=== PATIENT | female | born 1985 | race Hispanic/Latino ===

== ENCOUNTER 2019-12-11 18:51 | Emergency (ER) | payer OTHER ==
[2019-12-11] MEDS ORDERED: ACETAMINOPHEN 325 MG TABLET ONE ×2 (19:33→19:34)
[2019-12-11] MEDS ORDERED: IBUPROFEN 400 MG TAB ONE (19:34)
--- NOTE | 2019-12-11 20:13 | RAD REPORT ---
EXAM DESCRIPTION: RAD - Wrist Right 3 View - 12/11/2019 7:51 pm CLINICAL HISTORY: Right wrist pain FINDINGS: No fracture or dislocation is seen. No bone or joint abnormality seen
--- NOTE | 2019-12-11 20:24 | ER ---
Nurse's Notes [facility] Name: Maida Andrews Age: 34 yrs Sex: Female : 1985 Arrival Date: 12/11/2019 Time: 18:53 Bed 13 Private MD: Diagnosis: Pain in right wrist Presentation: 12/11 18:55 Presenting complaint: Right wrist pain 7/10 upon waking today. Denies injury. Mild hb bruising and abrasions noted to right wrist. Transition of care: patient was not received from another setting of care. Onset of symptoms was December 11, 2019. Risk Assessment: Do you want to hurt yourself or someone else? Patient reports no desire to harm self or others. Care prior to arrival: None. 18:55 Method Of Arrival: Ambulatory hb 18:55 Acuity: SARKIS 4 hb Historical: - Allergies: 18:55 No Known Allergies; hb - Home Meds: 18:55 None [Active]; hb - PMHx: 18:55 None; hb - PSHx: 18:55 Tubal ligation; hb - Immunization history:: Adult Immunizations up to date. - Coronavirus screen:: The patient has NOT traveled to [place], [place], or [place] in the past 14 days. The patient has NOT had contact with known/suspected case of Coronavirus? Proceed with normal triage procedures. - Social history:: Smoking status: Patient denies any tobacco usage or history of. - Ebola Screening: : No symptoms or risks identified at this time. Screenin:37 Abuse screen: Denies threats or abuse. Denies injuries from another. Nutritional ls4 screening: No deficits noted. Tuberculosis screening: No symptoms or risk factors identified. Fall Risk None identified. Assessment: 19:36 General: Appears in no apparent distress. comfortable. Pain: Complains of pain in right ls4 wrist Pain currently is 8 out of 10 on a pain scale. Neuro: No deficits noted. Cardiovascular: No deficits noted. Respiratory: No deficits noted. GI: No deficits noted. : No deficits noted. Derm: No deficits noted. Musculoskeletal: No deficits noted. Vital Signs: 18:55 BP 111 / 51; Pulse 74; Resp 16; Temp 97.8; Pulse Ox 98% on R/A; Weight 72.57 kg; Height hb 5 ft. (152.40 cm); Pain 8/10; 18:55 Body Mass Index 31.25 (72.57 kg, 152.40 cm) ED Course: 18:53 Patient arrived in ED. as 18:55 Triage completed. hb 18:55 Arm band placed on. hb 18:58 Randolph Tovar PA is PHCP. cp 18:58 Cristhian Priest MD is Attending Physician. cp 19:20 Abbey Roberts, RN is Primary Nurse. ls4 19:37 Patient has correct armband on for positive identification. Bed in low position. Call ls4 light in reach. Side rails up X 1. 19:37 No provider procedures requiring assistance completed. Patient did not have IV access ls4 during this emergency room visit. 19:52 XRAY Wrist RIGHT 3 view In Process Unspecified. EDMS Administered Medications: 19:35 Drug: Ibuprofen 800 mg Route: PO; ls4 20:47 Follow up: Response: No adverse reaction; Marked relief of symptoms ls4 19:36 Drug: Tylenol 1000 mg Route: PO; ls4 20:47 Follow up: Response: No adverse reaction; Marked relief of symptoms ls4 Outcome: 20:24 Discharge ordered by MD. cp 20:47 Discharged to home ambulatory. ls4 20:47 Condition: good 20:47 Discharge instructions given to patient, Instructed on discharge instructions, follow up and referral plans. medication usage, Demonstrated understanding of instructions, follow-up care, medications, Prescriptions given X 1. 20:51 Patient left the ED. ls4 Signatures: Dispatcher [employer] EDMS Kalpana Lee as Randolph Tovar PA PA cp Baxter, Heather, RN RN Abbey Roberts, RN RN ls4
--- NOTE | 2019-12-11 20:24 | EDPHYS ---
Physician Documentation [facility] Name: Maida Andrews Age: 34 yrs Sex: Female : 1985 Arrival Date: 12/11/2019 Time: 18:53 Bed 13 Private MD: ED Physician Cristhian Priest HPI: 12/11 19:05 This 34 yrs old Female presents to ER via Ambulatory with complaints of Wrist cp Pain - swelling. 19:05 The patient or guardian reports pain, tenderness. The complaints affect the right wrist cp diffusely. Context: Patient reports she was moving some furniture around last weekend and again earlier this week and denies any specific injury to wrist. Started having pain to right wrist. Historical: - Allergies: 18:55 No Known Allergies; hb - Home Meds: 18:55 None [Active]; hb - PMHx: 18:55 None; hb - PSHx: 18:55 Tubal ligation; hb - Immunization history:: Adult Immunizations up to date. - Coronavirus screen:: The patient has NOT traveled to [place], [place], or [place] in the past 14 days. The patient has NOT had contact with known/suspected case of Coronavirus? Proceed with normal triage procedures. - Social history:: Smoking status: Patient denies any tobacco usage or history of. - Ebola Screening: : No symptoms or risks identified at this time. ROS: 19:10 Constitutional: Negative for body aches, chills, fever. cp 19:10 Eyes: Negative for injury, pain, redness, and discharge. cp 19:10 Cardiovascular: Negative for chest pain. 19:10 Respiratory: Negative for cough. 19:10 Abdomen/GI: Negative for abdominal pain. 19:10 MS/extremity: Positive for pain, tenderness, of the right wrist, Negative for injury or acute deformity, decreased range of motion, paresthesias. 19:10 All other systems are negative. Exam: 19:15 Constitutional: The patient appears in no acute distress, alert, awake, non-toxic, well cp developed, well nourished. 19:15 Hand exam: is negative for decreased range of motion, deformity, swelling, Exam is cp positive for pain, snuff box/scaphoid tenderness, tenderness, ROM: limited passive range of motion due to pain, in the right wrist, Perfusion: the extremity is normally perfused throughout, sensation intact. 19:15 Skin: cellulitis, is not appreciated, no rash present. 19:15 Head/Face: Normocephalic, atraumatic. Vital Signs: 18:55 BP 111 / 51; Pulse 74; Resp 16; Temp 97.8; Pulse Ox 98% on R/A; Weight 72.57 kg; Height hb 5 ft. (152.40 cm); Pain 8/10; 18:55 Body Mass Index 31.25 (72.57 kg, 152.40 cm) hb MDM: 19:04 Patient medically screened. cp 20:23 Differential diagnosis: closed fracture, tendonitis, sprain, strain. Data reviewed: cp vital signs, nurses notes, radiologic studies, plain films. 12/11 19:06 Order name: XRAY Wrist RIGHT 3 view; Complete Time: 20:19 cp 12/11 20:19 Interpretation: Report reviewed. cp 12/11 19:48 Order name: Splint - Wrist: right; Complete Time: 20:47 cp Administered Medications: 19:35 Drug: Ibuprofen 800 mg Route: PO; ls4 20:47 Follow up: Response: No adverse reaction; Marked relief of symptoms ls4 19:36 Drug: Tylenol 1000 mg Route: PO; ls4 20:47 Follow up: Response: No adverse reaction; Marked relief of symptoms ls4 Disposition: 12/12 07:10 Co-signature as Attending Physician, Cristhian Priest MD. rn Disposition: 12/11/19 20:24 Discharged to Home. Impression: Pain in right wrist. - Condition is Stable. - Discharge Instructions: Wrist Pain. - Prescriptions for Naprosyn 500 mg Oral Tablet - take 1 tablet by ORAL route 2 times per day take with food; 20 tablet. - Medication Reconciliation Form, Thank You Letter, Antibiotic Education, Prescription Opioid Use, Work release form form. - Follow up: Private Physician; When: 1 week; Reason: Worsening of condition. - Problem is new. - Symptoms have improved. Signatures: Dispatcher [employer] EDMS Cristhian Priest MD MD rn Page, Corey, PA PA cp Baxter, Heather, RN RN hb Stewart, Lisa, RN RN ls4 Corrections: (The following items were deleted from the chart) 12/11 20:51 20:24 12/11/2019 20:24 Discharged to Home. Impression: Pain in right wrist. Condition ls4 is Stable. Forms are Medication Reconciliation Form, Thank You Letter, Antibiotic Education, Prescription Opioid Use. Follow up: Private Physician; When: 1 week; Reason: Worsening of condition. Problem is new. Symptoms have improved. cp
[2019-12-11 20:57] VITALS: BP 111/51; TEMP 97.8; O2SAT 98
== END 2019-12-11 20:51 | disposition home or self-care (01) ==
LOC: ER 18:51
DX: M25.531 Pain in right wrist (principal)
CPT/HCPCS: 99283

== ENCOUNTER 2021-03-05 19:27 | Emergency (ER) | payer OTHER ==
--- OUTSIDE RECORDS SUMMARY | 2021-03-05 19:30 | XMS REPORT | Continuity of Care Document ---
:1985 Author Organization [facility] t Address [address] [place] [address] Care Team Providers Name Role Phone Paresh Manriquez Attending Clinician Problems This patient has no known problems. Allergies, Adverse Reactions, Alerts This patient has no known allergies or adverse reactions. Medications This patient has no known medications. Procedures This patient has no known procedures. Encounters Start End Encounter Admission Attending Care Care Encounter Source Date/Time Date/Time Type Type Clinicians Facility Department ID 2020-08-03 2020-08-03 Office ANTONIO Bradley [id number] 08:23:11 08:59:25 Visit Anne Yoder [facility] [facility] [id number] [facility] [id number] MATERNAL [id number] & CHILD [address] [place] [address] Results This patient has no known results.
--- NOTE | 2021-03-05 22:42 | ER ---
Nurse's Notes [facility] Name: Maida Tomlin Age: 35 yrs Sex: Female : 1985 Arrival Date: 03/05/2021 Time: 19:28 Bed Waiting Private MD: Diagnosis: Acute upper respiratory infection, unspecified;Nausea with vomiting, unspecified Presentation: 03/05 20:38 Chief complaint: Patient states: Reports she started having nausea, shortness of ea breath, and cough that started two days ago. 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 Coronavirus screen: Client presents with at least one sign or symptom that may indicate coronavirus-19. Standard/surgical mask placed on the client. Ebola Screen: No symptoms or risks identified at this time. Initial Sepsis Screen: Does the patient meet any 2 criteria? No. Patient's initial sepsis screen is negative. Does the patient have a suspected source of infection? No. Patient's initial sepsis screen is negative. Risk Assessment: Do you want to hurt yourself or someone else? Patient reports no desire to harm self or others. Onset of symptoms was March 05, 2021. 20:38 Method Of Arrival: Ambulatory ea 20:38 Acuity: SARKIS 3 ea Triage Assessment: 22:35 GI: Reports vomiting. 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 - Social history:: Smoking status: Patient denies any tobacco usage or history of. - Family history:: not pertinent. - Hospitalizations: : No recent hospitalization is reported. Screenin:44 Abuse screen: Denies threats or abuse. Nutritional screening: No deficits noted. ea Tuberculosis screening: No symptoms or risk factors identified. Fall Risk None identified. Assessment: 22:35 General: Appears in no apparent distress. Behavior is calm, cooperative. Pain: Denies bb pain. Neuro: Level of Consciousness is awake, alert, obeys commands, Oriented to person, place, time, situation. Cardiovascular: No deficits noted. Respiratory: Respiratory effort is even, unlabored, Respiratory pattern is regular. GI: Abdomen is non-distended. Derm: Skin is pink, warm \T\ dry. Musculoskeletal: Circulation, motion, and sensation intact. 22:37 Reassessment: Dr Priest in triage for pt evaluation and discussion of findings and bb recommendations pt to be discharged home with medications. Pt verbalized understanding of and agrees to plan of care discharge instructions given pt ambulated with steady gait to exit. Vital Signs: 20:38 BP 126 / 77; Pulse 77; Resp 18; Temp 97.5; Pulse Ox 99% ; Weight 68.04 kg; Height 5 ft. ea 2 in. (157.48 cm); 22:41 BP 120 / 78; Pulse 66; Resp 16 S; Temp 97.2(TE); Pulse Ox 99% on R/A; Pain 0/10; bb 20:38 Body Mass Index 27.44 (68.04 kg, 157.48 cm) ea ED Course: 19:28 Patient arrived in ED. cf2 20:42 Triage completed. ea 20:45 Arm band placed on right wrist. ea 20:46 Patient has correct armband on for positive identification. Bed in low position. Call ea light in reach. 21:17 XRAY Chest (1 view) In Process Unspecified. EDMS 22:30 Cristhian Priest MD is Attending Physician. rn 22:35 No provider procedures requiring assistance completed. Patient did not have IV access bb during this emergency room visit. Administered Medications: No medications were administered Outcome: 22:35 Discharged to home ambulatory. bb 22:35 Condition: stable 22:35 Discharge instructions given to patient, Instructed on discharge instructions, follow up and referral plans. medication usage, Demonstrated understanding of instructions, follow-up care, medications, Prescriptions given X 2. 22:42 Discharge ordered by . rn 22:47 Patient left the ED. bb Signatures: Dispatcher [employer] EDMS Johnna Henao RN RN bb Nieto, Roman, MD MD rn Antunez, Elena, RN RN ea Frazier, Celesta cf2
--- NOTE | 2021-03-05 22:42 | EDPHYS ---
Physician Documentation [facility] Name: Maida Tomlin Age: 35 yrs Sex: Female : 1985 Arrival Date: 03/05/2021 Time: 19:28 Bed Waiting Private MD: ED Physician Cristhian Priest HPI: 03/05 22:38 This 35 yrs old Female presents to ER via Ambulatory with complaints of rn EXPOSURE TO COVID, Nausea, Vomiting, Headache, Breathing Difficulty. 22:38 The patient presents to the emergency department with nausea, vomiting. Onset: The rn symptoms/episode began/occurred 1 week(s) ago. Possible causes: unknown. The symptoms are aggravated by nothing. The symptoms are alleviated by nothing. Associated signs and symptoms: Pertinent positives: nausea, Pertinent negatives: abdominal pain, fever, GI bleeding. Severity of symptoms: At their worst the symptoms were mild in the emergency department the symptoms are unchanged. The patient has not experienced similar symptoms in the past. The patient has not recently seen a physician. Reports exposure to COVID + co-worker, patient with 1 week of cough, myalgias, fatigue, nausea and vomiting, headache, fatigue. No abd pain. Is feeling better. Tubes tied, not . NO chest pain. Reports takes breathing treatments at home but needs refill of albuterol. . 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 - Social history:: Smoking status: Patient denies any tobacco usage or history of. - Family history:: not pertinent. - Hospitalizations: : No recent hospitalization is reported. ROS: 22:38 Constitutional: Negative for fever, chills, and weight loss, Eyes: Negative for injury, rn pain, redness, and discharge, ENT: Negative for injury, pain, and discharge, Neck: Negative for injury, pain, and swelling, Cardiovascular: Negative for chest pain, palpitations, and edema, Respiratory: + cough and wheezing Abdomen/GI: Negative for abdominal pain, diarrhea, and constipation, MS/Extremity: Negative for injury and deformity, Skin: Negative for injury, rash, and discoloration, Neuro: Negative for numbness, tingling, and seizure. Exam: 22:38 Constitutional: This is a well developed, well nourished patient who is awake, alert, rn and in no acute distress. Head/Face: Normocephalic, atraumatic. Eyes: Periorbital areas with no swelling, redness, or edema. Neck: No Meningismus. Cardiovascular: Regular rate and rhythm Respiratory: Speaking full sentences, unlabored.No retractions. Skin: NO cyanosis Neuro: Awake and alert, GCS 15 Vital Signs: 20:38 BP 126 / 77; Pulse 77; Resp 18; Temp 97.5; Pulse Ox 99% ; Weight 68.04 kg; Height 5 ft. ea 2 in. (157.48 cm); 22:41 BP 120 / 78; Pulse 66; Resp 16 S; Temp 97.2(TE); Pulse Ox 99% on R/A; Pain 0/10; bb 20:38 Body Mass Index 27.44 (68.04 kg, 157.48 cm) ea MDM: 22:30 Patient medically screened. rn 22:38 Differential diagnosis: viral gastroenteritis, gastroenteritis, viral syndrome, covid. rn Data reviewed: vital signs, nurses notes, lab test result(s), radiologic studies, plain films, and as a result, I will discharge patient. Counseling: I had a detailed discussion with the patient and/or guardian regarding: the historical points, exam findings, and any diagnostic results supporting the discharge/admit diagnosis, lab results, the need for outpatient follow up, to return to the emergency department if symptoms worsen or persist or if there are any questions or concerns that arise at home. Response to treatment: the patient's symptoms have mildly improved after treatment, and as a result, I will discharge patient. Special discussion: I discussed with the patient/guardian in detail that at this point there is no indication for admission to the hospital. It is understood, however, that if the symptoms persist or worsen the patient needs to return immediately for re-evaluation. Based on the history and exam findings, there is no indication for further emergent testing or inpatient evaluation. I discussed with the patient/guardian the need to see the primary care provider for further evaluation of the symptoms. ED course: Stable vitals, viral pattern on CXR, COVID neg, no oxygen requirement, will refill albuterol and given zofran prn, will dc home with return precautions.. 03/05 20:45 Order name: XRAY Chest (1 view) ea 03/05 22:25 Order name: SARS-COV-2 RT PCR; Complete Time: 22:30 EDTX Administered Medications: No medications were administered Disposition: 03/05/21 22:42 Discharged to Home. Impression: Acute upper respiratory infection, unspecified, Nausea with vomiting, unspecified. - Condition is Stable. - Discharge Instructions: Nausea and Vomiting, Adult, Viral Respiratory Infection. - Prescriptions for Zofran ODT 4 mg Oral tablet,disintegrating - place 1 tablet by TRANSLINGUAL route every 8 hours As needed; 20 tablet. Albuterol Sulfate 2.5 mg /3 mL (0.083 %) Inhalation Solution for Nebulization - inhale 1 unit by NEBULIZATION route every 8 hours As needed; 1 box. - Medication Reconciliation Form, Thank You Letter, Antibiotic Education, Prescription Opioid Use form. - Follow up: Private Physician; When: As needed; Reason: Recheck today's complaints, Re-evaluation by your physician. - Problem is new. - Symptoms have improved. Signatures: Dispatcher [employer] [facility] Johnna Henao RN RN bb Nieto, Roman, MD MD rn Antunez, Elena, RN RN ea Corrections: (The following items were deleted from the chart) 21:38 21:27 CORONAVIRUS+ ordered. [facility] EDTX 22:47 22:42 03/05/2021 22:42 Discharged to Home. Impression: Acute upper respiratory bb infection, unspecified; Nausea with vomiting, unspecified. Condition is Stable. Forms are Medication Reconciliation Form, Thank You Letter, Antibiotic Education, Prescription Opioid Use. Follow up: Private Physician; When: As needed; Reason: Recheck today's complaints, Re-evaluation by your physician. Problem is new. Symptoms have improved. rn
[2021-03-05 23:27] VITALS: O2SAT 99
[2021-03-05 23:28] VITALS: BP 120/78; TEMP 97.2
--- NOTE | 2021-03-06 07:06 | RAD REPORT ---
EXAM DESCRIPTION: RAD - Chest Single View - 03/05/2021 9:19 pm CLINICAL HISTORY: CONGESTION, COVID exposure COMPARISON: None TECHNIQUE: AP portable chest image was obtained 03/05/2021 9:19 pm . FINDINGS: Patchy interstitial opacification seen in each lung base with patchy airspace opacities in the left lung base. Mid and upper lung archibald are clear. Heart and vasculature are normal. No measur able pleural effusion and no pneumothorax. No acute bony abnormality seen. No acute aortic findings s uspected. IMPRESSION: Minimal or early bilateral lung base pneumonia.
== END 2021-03-05 22:47 | disposition home or self-care (01) ==
LOC: ER 19:27
DX: J06.9 Acute upper respiratory infection, unspecified (principal); Z20.822 Contact with and (suspected) exposure to COVID-19
CPT/HCPCS: 71045; U0003; 99283

== ENCOUNTER 2022-12-29 20:02 | Emergency (ER) | payer OTHER ==
--- OUTSIDE RECORDS SUMMARY | 2022-12-29 20:09 | XMS REPORT | Continuity of Care Document ---
:1985 Author Organization [facility] t Address [address] [place] [address] Care Team Providers Name Role Phone SNYDER MELVI Whitfield Primary Care Physician Unavailable ARTIS PARK Attending Clinician Unavailable ANNE GRIER Attending Clinician Unavailable Anne Manriquez Attending Clinician [phone] ESTHELA HUGGINS Attending Clinician Unavailable Steven Torres Attending Clinician Esthela Huggins MD Attending Clinician BROOK CALHOUN Attending Clinician Unavailable Brook Calhoun MD Attending Clinician Doctor Unassigned, [place] Attending Clinician Unavailable Na Rubio CNM Attending Clinician Payers Payer Name Policy Type Policy Number Effective Date Expiration Date Stepan [employer] [id number] 2022 00:00:00 Problems Condition Condition Condition Status Onset Resolution Last Treating Co mments Source Name Details Category Date Date Treatment Clinician Date 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 (BMI (BMI 2-02 ity of 30-39.9) 30-39.9) 00:00: [address] Allergies, Adverse Reactions, Alerts Allergy Allergy Status Severity Reaction(s) Onset Inactive Treating Comm ents Source Name Type Date Date Clinician NO KNOWN Drug Active [facility] ALLERGIE Class ity of S [facility] Social History Social Habit Start Date Stop Date Quantity Comments Source [facility] Exposure to Not sure [facility] SARS-CoV-2 [facility] (event) [place] Alcohol intake 2020-08-03 2020-08-03 Ex-drinker [facility] 00:00:00 00:00:00 (finding) [facility] Tobacco use and 2020-08-03 2020-08-03 Never used Universit y of exposure 00:00:00 00:00:00 [facility] Smoking Status Start Date Stop Date Source Never smoker [facility] Medications Ordered Filled Start Stop Current Ordering Indication Dosage Frequency Signature Comments Components Source Medication Medication Date Date Medication? Clinician (SIG) Name Name HYDROCORTIS 2020-0 Yes [id number] Apply to Univers ONE-HYDROQU 7-09 area(s) at it y of [place] 00 Medical 1-4-0.025 % Branch TOPICAL CREAM HYDROCORTIS 2020-0 Yes [id number] Apply to Univers ONE-HYDROQU 7-09 area(s) at it y of [place] 00 Medical 1-4-0.025 % Branch TOPICAL CREAM HYDROCORTIS 2020-0 Yes [id number] Apply to Univers ONE-HYDROQU 7-09 area(s) at it y of [place] 00 Medical 1-4-0.025 % Branch TOPICAL CREAM HYDROCORTIS 2020-0 Yes [id number] Apply to Univers ONE-HYDROQU 7-09 area(s) at it y of [place] 00 Medical 1-4-0.025 % Branch TOPICAL CREAM HYDROCORTIS 2020- Yes [id number] Apply to Univers ONE-HYDROQU 7-09 area(s) at it y of [place] 00 Medical 1-4-0.025 % Branch TOPICAL CREAM HYDROCORTIS 2019- Yes [id number] Apply to Univers ONE-HYDROQU 7-09 area(s) at it y of [place] NO[place] 00 Medical 1-4-0.025 % Branch TOPICAL CREAM diclofenac 2019- No [id number] 75mg Take 1 Univers 75 mg EC 2- [id number] tablet by ity of tablet 00:00: 04:59 mouth 2 [place] 00 :00 (two) [facility] daily with meals for 30 days. diclofenac 2019- No [id number] 75mg Take 1 Univers 75 mg EC 2- [id number] tablet by ity of tablet 00:00: 04:59 mouth 2 [place] 00 :00 (two) [facility] daily with meals for 30 days. diclofenac 2019- No [id number] 75mg Take 1 Univers 75 mg EC 12-27 [id number] tablet by ity of tablet 00:00: 04:59 mouth 2 [place] 00 :00 (two) [facility] daily with meals for 30 days. multivitami 2020- No [id number] 1{tbl} Take 1 Univers n tablet 11-11 tablet by ity o f 00:00: 05:59 mouth [place] 00 :00 daily. [facility] multivitami 2020- No [id number] 1{tbl} Take 1 Univers n tablet 11-11 tablet by ity o f 00:00: 05:59 mouth [place] 00 :00 daily. [facility] Branch multivitami 2020- No [id number] 1{tbl} Take 1 Univers n tablet 11-11 tablet by ity o f 00:00: 05:59 mouth [place] 00 :00 daily. [facility] multivitami 2020- No [id number] 1{tbl} Take 1 Univers n tablet 11-11 tablet by ity o f 00:00: 05:59 mouth [place] 00 :00 daily. [facility] multivitami 2020- No [id number] 1{tbl} Take 1 Univers n tablet 11-11 tablet by ity o f 00:00: 05:59 mouth [place] 00 :00 daily. [facility] multivitami 2020- No [id number] 1{tbl} Take 1 Univers n tablet 11-11 tablet by ity o f 00:00: 05:59 mouth [place] 00 :00 daily. [facility] multivitami 2020- No [id number] 1{tbl} Take 1 Univers n tablet 11-11 tablet by ity o f 00:00: 05:59 mouth [place] 00 :00 daily. [facility] multivitami 2020- No [id number] 1{tbl} Take 1 Univers n tablet 11-11 tablet by ity o f 00:00: 05:59 mouth [place] 00 :00 daily. [facility] No [id number] 1{tbl} Take 1 Univers n tablet 11-11 tablet by ity o f 00:00: 05:59 mouth [place] 00 :00 daily. [facility] multivitami 2020- No [id number] 1{tbl} Take 1 Univers n tablet 11-11 tablet by ity o f 00:00: 05:59 mouth [place] 00 :00 daily. [facility] multivitami 2020- No [id number] 1{tbl} Take 1 Univers n tablet 11-11 tablet by ity o f 00:00: 05:59 mouth [place] 00 :00 daily. [facility] multivitami 2020- No [id number] 1{tbl} Take 1 Univers n tablet 11-11 tablet by ity o f 00:00: 05:59 mouth [place] 00 :00 daily. Medical Branch POLI Galindo 2018- Yes Univers 1-18 ity of 00:00: [place] 00 Medical Branch ipratropium 2018- Yes Univer s -albuterol 1-18 ity of 0.5 mg-3 00:00: [place] mg(2.5 mg 00 Medical base)/3 mL Branch nebulizer solution POLI Galindo 2018- Yes Univers 1-18 ity of 00:00: [place] 00 Medical Branch ipratropium 2018-11 Yes Univer s -albuterol 1-18 ity of 0.5 mg-3 00:00: [place] mg(2.5 mg 00 Medical base)/3 mL Branch nebulizer solution VIOS 2018-11 Yes Univers 1-18 ity of 00:00: [place] 00 Medical Branch ipratropium 2018-11 Yes Univer s -albuterol 1-18 ity of 0.5 mg-3 00:00: [place] mg(2.5 mg 00 Medical base)/3 mL Branch nebulizer solution VIOS 2018-11 Yes Univers 1-18 ity of 00:00: [place] 00 Medical Branch ipratropium 2018-11 Yes Univer s -albuterol 1-18 ity of 0.5 mg-3 00:00: [place] mg(2.5 mg 00 Medical base)/3 mL Branch nebulizer solution VIOS 2018-11 Yes Univers 1-18 ity of 00:00: [place] 00 Medical Branch ipratropium 2018-11 Yes Univer s -albuterol 1-18 ity of 0.5 mg-3 00:00: [place] mg(2.5 mg 00 Medical base)/3 mL Branch nebulizer solution VIOS 2018-11 Yes Univers 1-18 ity of 00:00: [place] 00 Medical Branch ipratropium 2018-11 Yes Univer s -albuterol 1-18 ity of 0.5 mg-3 00:00: [place] mg(2.5 mg 00 Medical base)/3 mL Branch nebulizer solution VIOS 2018-11 Yes Univers 1-18 ity of 00:00: [place] 00 Medical Branch ipratropium 2018-11 Yes Univer s -albuterol 1-18 ity of 0.5 mg-3 00:00: [place] mg(2.5 mg 00 Medical base)/3 mL Branch nebulizer solution VIOS 2018-11 Yes Univers 1-18 ity of 00:00: [place] 00 Medical Branch ipratropium 2018-11 Yes Univer s -albuterol 1-18 ity of 0.5 mg-3 00:00: [place] mg(2.5 mg 00 Medical base)/3 mL Branch nebulizer solution VIOS Josie 2018-11 Yes Univers 1-18 ity of 00:00: [place] 00 Medical Branch ipratropium 2018-11 Yes Univer s -albuterol 1-18 ity of 0.5 mg-3 00:00: [place] mg(2.5 mg 00 Medical base)/3 mL Branch nebulizer solution AMBEROS Josie 2018-11 Yes Univers 1-18 ity of 00:00: [place] 00 Medical Branch ipratropium 2018-11 Yes Univer s -albuterol 1-18 ity of 0.5 mg-3 00:00: [place] mg(2.5 mg 00 Medical base)/3 mL Branch nebulizer solution POLI Galindo 2018-11 Yes Univers 1-18 ity of 00:00: [place] 00 Medical Branch ipratropium 2018-11 Yes Univer s -albuterol 1-18 ity of 0.5 mg-3 00:00: [place] mg(2.5 mg 00 Medical base)/3 mL Branch nebulizer solution POLI Galindo 2018-11 Yes Univers 1-18 ity of 00:00: [place] 00 Medical Branch ipratropium 2018-11 Yes Univer s -albuterol 1-18 ity of 0.5 mg-3 00:00: [place] mg(2.5 mg 00 Medical base)/3 mL Branch nebulizer solution Vital Signs Vital Name Observation Time Observation Value Comments Source Systolic blood 2020-08-03 13:35:00 98 mm[Hg] Univer sity [facility] Diastolic blood 2020-08-03 13:35:00 62 mm[Hg] [facility] 2020-08-03 13:35:00 67 /min [facility] Body temperature 2020-08-03 13:35:00 36.78 Diane [facility] rate 2020-08-03 13:35:00 16 /min [facility] Body height 2020-08-03 13:35:00 154.9 cm [facility] Body weight 2020-08-03 13:35:00 74.844 kg [facility] BMI 2020-08-03 13:35:00 31.18 kg/m2 [facility] Systolic blood 2020-08-03 13:35:00 98 mm[Hg] Univer sity [facility] Diastolic blood 2020-08-03 13:35:00 62 mm[Hg] Unive rsity of pressure [facility] Heart rate 2020-08-03 13:35:00 67 /min Universi ty of [facility] Body temperature 2020-08-03 13:35:00 36.78 Diane Univ ersity of [facility] Branch Respiratory rate 2020-08-03 13:35:00 16 /min Univ ersity of [facility] Body height 2020-08-03 13:35:00 154.9 cm Universi ty of [facility] Body weight 2020-08-03 13:35:00 74.844 kg Universi ty of [facility] BMI 2020-08-03 13:35:00 31.18 kg/m2 Universi ty of [facility] Systolic blood 2019-12-27 19:56:00 112 mm[Hg] Univer sity of pressure [facility] Diastolic blood 2019-12-27 19:56:00 63 mm[Hg] Unive rsity of pressure [facility] Heart rate 2019-12-27 19:56:00 88 /min Universi ty of [facility] Body height 2019-12-27 19:56:00 154.9 cm [facility]i ty [facility] Body weight 2019-12-27 19:56:00 74.844 kg [facility]i [facility] BMI 2019-12-27 19:56:00 31.18 kg/m2 Universi ty of [facility] Procedures Procedure Date / Time Performed Performing Clinician Sourc e REFERRAL- 2019-12-22 06:01:00 Doctor Unassigned, No Univer [facility] REQUEST/RESPONSE Name Medical Branch Encounters Start End Encounter Admission Attending Care Care Encounter Source Date/Time Date/Time Type Type Clinicians Facility Department ID 2023-01-23 2023-01-23 Outpatient R [facility] [id number] Univers 08:00:00 08:00:00 ity of [facility] 2020-11-21 2020-11-21 Outpatient Edwin PARK [facility] [id number] Univers 10:45:00 10:45:00 SHAKIRAA ity o f [facility] 2020-11-13 2020-11-13 Outpatient Edwin PARK [facility] [id number] Univers 15:00:00 15:00:00 ROSORALIANDA ity o f [facility] 2020-08-03 2020-08-03 Outpatient R CHRISENRIQUEGISELL [facility] [id number] Univers 09:00:00 09:00:00 ANNE pandey 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 [id number] REGIONAL [id number] MATERNAL [id number] & CHILD [address] [place] [address] 2020-08-03 2020-08-03 [facility] [id number] Univers 08:23:11 08:59:25 Visit Anne Paresh [employer] TOP INSTALLER [id number] ity of [facility] [id number] Parvez as MATERNAL [id number] Med ical & CHILD [address] [place] [address] 2020-05-18 2020-05-18 Outpatient R ROSY [facility] [id number] Univers 16:45:00 16:45:00 ESTHELA robles [facility] 2020-05-11 2020-05-11 [facility] [id number] Univers 10:15:00 10:15:00 ESTHELA robles [facility] 2020-05-11 2020-05-11 Office Steven Torres UNIVERSIT [id number] Univers 09:55:33 10:10:33 Visit Esthela Huggins HEALTH [id number] 0 ity of [id number] [id number] [address] 2020-01-17 2020-01-17 [facility] [id number] Univers 16:15:00 16:15:00 BROOK robles [facility] 2019-12-27 2019-12-27 [facility] [id number] Univers 13:52:41 14:14:45 Visit Brook No Health [id number] it y of Surgical [id number] Parvez as Specialti [phone] Me dical es [address] [facility] 2019-12-27 2019-12-27 Outpatient R LJ [facility] [id number] Univers 13:45:00 13:45:00 BROOK ity of [facility] 2019-12-27 2019-12-27 Letter Lj [facility] [id number] Univers 00:00:00 00:00:00 (Out) [place] [facility] [id number] it y of Surgical [id number] Parvez as Specialti [id number] Ga dical es [address] [facility] 2019-12-22 2019-12-22 Orders Doctor EFRAIN [id number] Univers 00:00:00 00:00:00 Only Unassigned, NATE [id number] ity of [place] [facility] [id number] Parvez as [id number] [facility] 00[address] [place] 2019-11-15 2019-11-15 Telephone Joanne, [facility] [id number] Univers 00:00:00 00:00:00 Na Cook HEALTH [id number] i ty of [place] [id number] [id number] [facility] 113 [place] Results Test Description Test Time Test Comments Results Result Comments Source SARS-CoV-2 (COVID-19), RT-PCR/TMA 2021-11-25 10:45:46 Test Item Value Reference Range Interpretation Comme nts SARS-CoV-2 INTERPRETATION NEGATIVE SEE NOTE S ARS-CoV-2 RNA NOT (test code = 88872) DETECTED Negative results do not preclude SARS-C oV-2 infection and should notb e used as the sole basis for patient management deci sions. Negativeresults must be combined with clinical o bservations, patient history ,and epidemiological information. Optimum specime n types and timingfor peak viral levels during infectio ns caused by SARS-CoV-2 have notbeen determined. Col lection of multiple specim ens or types ofspecimens may be necessary to detect virus. I mproper specimencollect ion and handling, sequence variab ility under primers/probes, or organism present below t he limit of detection may l ead to falsenegative r esults. Positive and negative pr edictive values oftesting are h ighly dependent on prevalence. False negative testresults are more likely when prevalence is h igh. SOURCE (test code = 32909) NOT SPECIFIED Note: Methodology is Adore Carrington Real-Time RT-PCR. The expected result or reference range is NEGATI VE (Not Detected). For more information regarding COVID -19 testing to include clinica linformation, methodology det ail, intended use, FDA author ization andrecommended fact sheets for patients or hea lthcare providers, see NewTest Announcement: S ARS-CoV-2 (COVID-19) by N AAT at URL below (note,fact shee ts are provided by method given in report:https:// www.[employer]/c linicians/ykle t-communications/ Alternatively, see downloadable PDF fact sheet at:https://www. [employer]/COVID -19-RT-PCR UNLE SS OTHERWISE INDICATED, ALL TESTING PERFORMED ATCLINICAL PATH [facility], [facility]. 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 [id number]
[2022-12-29] MEDS ORDERED: BENZONATATE 100 MG CAP PO ONE (21:18)
[2022-12-29] MEDS ORDERED: ACETAMINOPHEN 325 MG TABLET ONE (21:19)
[2022-12-29 22:16] LABS: SARS-COV-2 RT PCR NEGATIVE (NEGATIVE)
--- NOTE | 2022-12-29 22:28 | EDPHYS ---
Physician Documentation [facility] Name: Maida Tomlin Age: 37 yrs Sex: Female : 1985 Arrival Date: 12/29/2022 Time: 20:06 Bed 19 Private MD: ED Physician Micki Hayes HPI: 12/29 20:33 This 37 yrs old Female presents to ER via Ambulatory with complaints of Sore cp Throat. 20:33 The patient presents with sore throat. The patient describes throat pain as constant. cp Onset: The symptoms/episode began/occurred yesterday. Associated signs and symptoms: Pertinent positives: cough, Pertinent negatives diarrhea, fever, flu-like symptoms, headache, vomiting. 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 - Social history:: Smoking status: Patient denies any tobacco usage or history of. ROS: 23:35 Constitutional: Positive for body aches, Negative for fever, poor PO intake. cp 23:35 Eyes: Negative for injury, pain, redness, and discharge. cp 23:35 ENT: Positive for rhinorrhea, sore throat, Negative for drainage from ear(s), ear pain, difficulty swallowing, difficulty handling secretions. 23:35 Cardiovascular: Negative for chest pain, palpitations. 23:35 Respiratory: Positive for cough, Negative for shortness of breath, wheezing. 23:35 Abdomen/GI: Negative for abdominal pain, vomiting, diarrhea, constipation. 23:35 Skin: Negative for rash. 23:35 Neuro: Negative for altered mental status, headache, weakness. 23:35 All other systems are negative. Exam: 23:40 Constitutional: The patient appears in no acute distress, alert, awake, non-toxic, well cp developed, well nourished. 23:40 Head/Face: Normocephalic, atraumatic. cp 23:40 Eyes: Periorbital structures: appear normal, Conjunctiva: normal, no exudate, no injection, Sclera: no appreciated abnormality, Lids and lashes: appear normal, bilaterally. 23:40 ENT: External ear(s): are unremarkable, Ear canal(s): are normal, clear, TM's: bulging, is not appreciated, bilaterally, dullness, bilaterally, erythema, is not appreciated, bilaterally, Nose: is normal, Mouth: Lips: moist, Oral mucosa: moist, Posterior pharynx: Airway: no evidence of obstruction, patent, Tonsils: with erythema, no enlargement, no exudate, swelling, is not appreciated, erythema, that is mild, exudate, is not appreciated. 23:40 Neck: ROM/movement: is normal, is supple, without pain, no range of motions limitations, no meningismus, Lymph nodes: no appreciated lymphadenopathy. 23:40 Chest/axilla: Inspection: normal. 23:40 Cardiovascular: Rate: normal, Rhythm: regular. 23:40 Respiratory: the patient does not display signs of respiratory distress, Respirations: normal, no use of accessory muscles, no retractions, labored breathing, is not present, Breath sounds: decreased breath sounds, are not appreciated, stridor, is not appreciated, + upper airway congestion. wheezing: is not appreciated. 23:40 Abdomen/GI: Exam negative for discomfort, guarding, Inspection: abdomen appears normal. 23:40 Skin: no rash present. Vital Signs: 20:47 BP 102 / 69; Pulse 90; Resp 17; Temp 98.8(O); Pulse Ox 96% on R/A; Weight 68.04 kg (R); ll3 Height 5 ft. 0 in. (152.40 cm) (R); Pain 10/10; 20:47 Body Mass Index 29.29 (68.04 kg, 152.40 cm) ll3 MDM: 20:50 Patient medically screened. 22:26 Data reviewed: vital signs, nurses notes, lab test result(s). 22:26 I considered the following discharge prescriptions or medication management in the emergency department Medications were administered in the Emergency Department. See MAR. Test considered but Not performed: X-ray: chest. Counseling: I had a detailed discussion with the patient and/or guardian regarding: the historical points, exam findings, and any diagnostic results supporting the discharge/admit diagnosis, lab results, to return to the emergency department if symptoms worsen or persist or if there are any questions or concerns that arise at home. Special discussion: I discussed with the patient/guardian that the patient's current presentation does not indicate dosing of antibiotics. They should follow-up with their primary care provider and return if the symptoms persist or progress. 12/29 20:23 Order name: COVID-19/FLU A+B; Complete Time: 22:22 cp 12/29 22:25 Interpretation: Reviewed. cp 12/29 20:23 Order name: Strep; Complete Time: 22:22 cp Administered Medications: 21:18 Drug: Tessalon Perle (benzonatate) 200 mg Route: PO; eh3 22:40 Follow up: Response: Pain is decreased eh3 21:18 Drug: Tylenol 650 mg Route: PO; eh3 22:40 Follow up: Response: Pain is decreased eh3 Disposition Summary: 12/29/22 22:27 Discharge Ordered Location: Home cp Problem: new cp Symptoms: have improved cp Condition: Stable cp Diagnosis - Acute pharyngitis, unspecified cp - Cough cp Followup: cp - With: Private Physician - When: 2 - 3 days - Reason: Worsening of condition Discharge Instructions: - Discharge Summary Sheet cp - Pharyngitis cp - Sore Throat cp - Cough, Adult cp Forms: - Medication Reconciliation Form cp - Thank You Letter cp - Antibiotic Education cp - Prescription Opioid Use cp Prescriptions: - Ibuprofen 800 mg Oral Tablet - take 1 tablet by ORAL route every 8 hours As needed take with food; 30 tablet; cp Refills: 0, Product Selection Permitted - Tessalon Perles 100 mg Oral Capsule - take 2 capsule by ORAL route every 8 hours As needed; 30 capsule; Refills: 0, cp Product Selection Permitted Signatures: Dispatcher [employer] EDRandolph Soni PA PA cp Mayo Espinosa RN RN ll3 Afsaneh Jain RN RN eh3
--- NOTE | 2022-12-29 22:28 | ER ---
Nurse's Notes [facility] Name: Maida Tomlin Age: 37 yrs Sex: Female : 1985 Arrival Date: 12/29/2022 Time: 20:06 Bed 19 Private MD: Diagnosis: Acute pharyngitis, unspecified;Cough Presentation: 12/29 20:47 Chief complaint: Patient states: C/o sore throat, cough, green mucous, unable to eat ll3 because of the pain, states pain is 10/10 since yesterday. Coronavirus screen: Vaccine status: Patient reports being unvaccinated. congestion, cough unrelated to allergies. Ebola Screen: No symptoms or risks identified at this time. Initial Sepsis Screen: Does the patient meet any 2 criteria? No. Patient's initial sepsis screen is negative. Does the patient have a suspected source of infection? No. Patient's initial sepsis screen is negative. Risk Assessment: Do you want to hurt yourself or someone else? Patient reports no desire to harm self or others. Onset of symptoms was December 28, 2022. 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 - Social history:: Smoking status: Patient denies any tobacco usage or history of. Vital Signs: 20:47 BP 102 / 69; Pulse 90; Resp 17; Temp 98.8(O); Pulse Ox 96% on R/A; Weight 68.04 kg (R); ll3 Height 5 ft. 0 in. (152.40 cm) (R); Pain 10/10; 20:47 Body Mass Index 29.29 (68.04 kg, 152.40 cm) ll3 ED Course: 20:06 Patient arrived in ED. ja2 20:09 Randolph Tovar PA is PHCP. cp 20:09 Micki Hayes MD is Attending Physician. cp 20:49 Triage completed. ll3 20:49 Arm band placed on. 3 21:09 Afsaneh Jain, RN is Primary Nurse. 3 Administered Medications: 21:18 Drug: Tessalon Perle (benzonatate) 200 mg Route: PO; 3 22:40 Follow up: Response: Pain is decreased 3 21:18 Drug: Tylenol 650 mg Route: PO; 3 22:40 Follow up: Response: Pain is decreased [facility] Outcome: 22:27 Discharge ordered by . tasha 22:44 Patient left the ED. 3 Signatures: Randolph Tovar PA PA cp Alexander, Jessica ja2 Loubet, Lynsea RN RN 3 Afsaneh Jain, DOMI RN 3
== END 2022-12-29 22:44 | disposition home or self-care (01) ==
LOC: ER 20:02
DX: J02.9 Acute pharyngitis, unspecified (principal); R05.9 Cough, unspecified; Z20.822 Contact with and (suspected) exposure to COVID-19
CPT/HCPCS: 87070; 87081; 0240U; 99282

== ENCOUNTER 2023-08-12 06:33 | Emergency (ER) | payer OTHER, SELFPAY ==
--- OUTSIDE RECORDS SUMMARY | 2023-08-12 06:36 | XMS REPORT | Continuity of Care Document ---
:1985 Author Organization [facility] t Address [address] [facility] [address] [place] [address] Care Team Providers Name Role Phone Johnna Kingston CNM Primary Care Physician [phone] ANNE BRADLEY Attending Clinician Unavailable Visit, Jason Nurse Attending Clinician Unavailable Johnna Kingston CNM Attending Clinician JOHNNA KINGSTON Attending Clinician Unavailable Kirk Anne QUINN Attending Clinician [phone] Lab, Jason Attending Clinician Unavailable Doctor Unassigned, Effort Attending Clinician Unavailable ARTIS PARK Attending Clinician Unavailable ESTHELA HUGGINS Attending Clinician Unavailable Steven Torres Attending Clinician Esthela Huggins MD Attending Clinician BROOK CALHOUN Attending Clinician Unavailable Brook Calhoun MD Attending Clinician Na Rubio CNM Attending Clinician Payers Payer Name Policy Type Policy Number Effective Date Expiration Date Stepan PIÑA STAR [id number] 2022 00:00:00 Problems Condition Condition Condition Status Onset Resolution Last Treating Co mments Source Name Details Category Date Date Treatment Clinician Date History of History of Disease Active U nivers tubal tubal 3-23 ity of ligation ligation 00:00: [place] 00 [facility] 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 2018-11 Overview: Un [...] (HPV) (HPV) Other Other Disease Active 2018-11 [facility] general general 2-02 ity of counseling [place] advice and advice 00 Me dical for for Branch contracept contracept marian marian management management Obesity Obesity Disease Active 2018-11 [facility] (BMI (BMI 2-02 ity of 30-39.9) 30-39.9) 00:00: [address] Allergies, Adverse Reactions, Alerts Allergy Allergy Status Severity Reaction(s) Onset Inactive Treating Comm ents Source Name Type Date Date Clinician NO KNOWN Drug Active Univers ALLERGIE Class ity of S [facility] Social History Social Habit Start Date Stop Date Quantity Comments Source Sexual orientation Univer sity of [facility] Exposure to 2023-03-16 2023-03-26 Not sure [facility] SARS-CoV-2 (event) 00:00:00 08:29:00 [facility] History of Social 2023-01-23 2023-01-23 Univers ity of function 00:00:00 00:00:00 [facility] Alcohol intake 2023-01-23 2023-01-23 Ex-drinker [facility] 00:00:00 00:00:00 (finding) [facility] Tobacco use and 2019-10-04 2019-10-04 Smokeless Universit y of exposure 00:00:00 00:00:00 tobacco non-user [facility] Sex Assigned [birth year] Universit y of 00:00:00 00:00:00 [facility] Smoking Status Start Date Stop Date Source Never smoked tobacco [facility] Medications Ordered Filled Start Stop Current Ordering Indication Dosage Frequency Signature Comments Components Source Medication Medication Date Date Medication? Clinician (SIG) Name Name fluconazole 2022-0 2023- No [id number] 150mg Take 1 Univers (DIFLUCAN) 01-27 tablet by ity of 150 mg 00:00: 04:59 [place] tablet [place] :00 now for 1 Medical dose. Branch HYDROCORTIS 2020-0 Yes [id number] Apply to Univers ONE-HYDROQU 7-09 area(s) at it y of [place] 00 Medical 1-4-0.025 % Branch TOPICAL CREAM HYDROCORTIS 2020-0 Yes [id number] Apply to Univers ONE-HYDROQU 7-09 area(s) at it y of [place] 00 Medical 1-4-0.025 % Branch TOPICAL CREAM HYDROCORTIS 2020-0 Yes [id number] Apply to Univers ONE-HYDROQU 7-09 area(s) at it y of [place] 00 Medical 1-4-0.025 % Branch TOPICAL CREAM HYDROCORTIS 2020-0 Yes [id number] Apply to Univers ONE-HYDROQU 7-09 area(s) at it y of [place] NO[place] 00 Medical 1-4-0.025 % Branch TOPICAL CREAM HYDROCORTIS 2020-0 Yes [id number] Apply to Univers ONE-HYDROQU 7-09 area(s) at it y of [place] 00:[place] 00 Medical 1-4-0.025 % Branch TOPICAL CREAM HYDROCORTIS 2020-0 Yes [id number] Apply to Univers ONE-HYDROQU 7-09 area(s) at it y of [place] 00:[place] NO[place] 00 Medical 1-4-0.025 % Branch TOPICAL CREAM HYDROCORTIS 2020-0 Yes [id number] Apply to Univers ONE-HYDROQU 7-09 area(s) at it y of [place] 00:[place] NO[place] 00 Medical 1-4-0.025 % Branch TOPICAL CREAM HYDROCORTIS 2020-0 Yes [id number] Apply to Univers ONE-HYDROQU 7-09 area(s) at it y of [place] 00:[place] NO[place] 00 Medical 1-4-0.025 % Branch TOPICAL CREAM HYDROCORTIS 2020-0 Yes [id number] Apply to Univers ONE-HYDROQU 7-09 area(s) at it y of [place] 00:00: [place]. [place] NO[place] 00 Medical 1-4-0.025 % Branch TOPICAL CREAM HYDROCORTIS 2020-0 Yes [id number] Apply to Univers ONE-HYDROQU 7-09 area(s) at it y of [place] 00:[place]: [place] NO[place] 00 Medical 1-4-0.025 % Branch TOPICAL CREAM HYDROCORTIS 2020-0 Yes [id number] Apply to Univers ONE-HYDROQU 7-09 area(s) at it y of [place] 00:00: [place]. [place] NO[place] 00 Medical 1-4-0.025 % Branch TOPICAL CREAM HYDROCORTIS 2020-0 Yes [id number] Apply to Univers ONE-HYDROQU 7-09 area(s) at it y of [place] 00:[place]: [place] NO[place] 00 Medical 1-4-0.025 % Branch TOPICAL CREAM HYDROCORTIS 2020-0 Yes [id number] Apply to Univers ONE-HYDROQU 7-09 area(s) at it y of [place] 00:[place] NO[place] 00 Medical 1-4-0.025 % Branch TOPICAL CREAM HYDROCORTIS 2020-0 Yes [id number] Apply to Univers ONE-HYDROQU 7-09 area(s) at it y of [place] 00:00: [place]. [place] NO[place] 00 Medical 1-4-0.025 % Branch TOPICAL CREAM HYDROCORTIS 2020-0 Yes [id number] Apply to Univers ONE-HYDROQU 7-09 area(s) at it y of [place] 00:00: [place]. [place] NOIN 00 Medical 1-4-0.025 % Branch TOPICAL CREAM HYDROCORTIS 2020-0 Yes [id number] Apply to Univers ONE-HYDROQU 7-09 area(s) at it y of [place] 00:00: [place]. [place] NO[place] 00 Medical 1-4-0.025 % Branch TOPICAL CREAM HYDROCORTIS 2020-0 Yes [id number] Apply to Univers ONE-HYDROQU 7-09 area(s) at it y of [place] 00:00: [place]. [place] NOIN 00 Medical 1-4-0.025 % Branch TOPICAL CREAM HYDROCORTIS 2020-0 Yes [id number] Apply to Univers ONE-HYDROQU 7-09 area(s) at it y of [place] 00:00: [place]. [place] NO[place] 00 Medical 1-4-0.025 % Branch TOPICAL CREAM diclofenac 2020-2019- No [id number] 75mg Take 1 Univers 75 mg EC 2-24 01- [id number] tablet by ity of tablet 00:00: 04:59 mouth 2 [place] 00 :00 (two) Medical times [place] daily with meals for 30 days. diclofenac 2019-2019- No [id number] 75mg Take 1 Univers 75 mg EC 201-26 [id number] tablet by ity of tablet 00:00: 04:59 mouth 2 [place] 00 :00 (two) Medical times [place] daily with meals for 30 days. diclofenac 2020-2019- No [id number] 75mg Take 1 Univers 75 mg EC 2- [id number] tablet by ity of tablet 00:00: 04:59 mouth 2 [place] 00 :00 (two) [facility] times [place] daily with meals for 30 days. multivitami 2020- No [id number] 1{tbl} Take 1 Univers n tablet 11-11 tablet by ity o f 00:00: 05:59 mouth [place] 00 :00 daily. Medical Branch multivitami 2020- No [id number] 1{tbl} Take 1 Univers n tablet 11-11 tablet by ity o f 00:00: 05:59 mouth [place] 00 :00 daily. Medical Branch multivitami 2020- No [id number] 1{tbl} Take 1 Univers n tablet 11-11 tablet by ity o f 00:00: 05:59 mouth [place] 00 :00 daily. Medical Branch multivitami 2019-0 2020- No [id number] 1{tbl} Take 1 Univers n tablet 11-11 tablet by ity o f 00:00: 05:59 mouth [place] 00 :00 daily. Medical Branch multivitami 2020- No [id number] 1{tbl} Take 1 Univers n tablet 11-11 tablet by ity o f 00:00: 05:59 mouth [place] 00 :00 daily. Medical Branch multivitami 2020-2020- No [id number] 1{tbl} Take 1 Univers n tablet 11-11 tablet by ity o f 00:00: 05:59 mouth [place] 00 :00 daily. [facility] Branch multivitami 2020-2020- No [id number] 1{tbl} Take 1 Univers n tablet 11-11 tablet by ity o f 00:00: 05:59 mouth [place] 00 :00 daily. Medical Branch multivitami 2020-2020- No [id number] 1{tbl} Take 1 Univers n tablet 11-11 tablet by ity o f 00:00: 05:59 mouth [place] 00 :00 daily. Medical Branch multivitami 2019-2020- No [id number] 1{tbl} Take 1 Univers n tablet 11-11 tablet by ity o f 00:00: 05:59 mouth [place] 00 :00 daily. Medical Branch multivitami 2020-2020- No [id number] 1{tbl} Take 1 Univers n tablet 11-11 tablet by ity o f 00:00: 05:59 mouth [place] 00 :00 daily. [facility] Branch multivitami 2019-2020- No [id number] 1{tbl} Take 1 Univers n tablet 11-11 tablet by ity o f 00:00: 05:59 mouth [place] 00 :00 daily. Medical Branch multivitami 20202020- No [id number] 1{tbl} Take 1 Univers n tablet 11-11 tablet by ity o f 00:00: 05:59 mouth [place] 00 :00 daily. Medical Branch VIOS Josie 2019-1 Yes Univers 1-18 ity of 00:00: [place] [...] 00 Medical base)/3 mL Branch nebulizer solution OS 2018-11 Yes Univers 1-18 ity of 00:00: [place] 00 Medical Branch ipratropium 2018-11 Yes Univer s -albuterol 1-18 ity of 0.5 mg-3 00:00: [place] mg(2.5 mg 00 Medical base)/3 mL Branch nebulizer solution OS 2018-11 Yes Univers 1-18 ity of 00:00: [place] 00 Medical Branch ipratropium 2018-11 Yes Univer s -albuterol 1-18 ity of 0.5 mg-3 00:00: [place] mg(2.5 mg 00 Medical base)/3 mL Branch nebulizer solution OS 2018-11 Yes Univers 1-18 ity of 00:00: [place] 00 Medical Branch ipratropium 2018-11 Yes Univer s -albuterol 1-18 ity of 0.5 mg-3 00:00: [place] mg(2.5 mg 00 Medical base)/3 mL Branch nebulizer solution OS 2018-11 Yes Univers 1-18 ity of 00:00: [place] 00 Medical Branch ipratropium 2018-11 Yes Univer s -albuterol 1-18 ity of 0.5 mg-3 00:00: [place] mg(2.5 mg 00 Medical base)/3 mL Branch nebulizer solution ipratropium 2018-11 Yes Univer s -albuterol 1-18 [...] ity of 00:00: [place] 00 Medical Branch VIOS 2018-11 Yes Univers -18 ity of 00:00: [place] 00 Medical Branch ipratropium 2018-11 Yes Univer s -albuterol 1-18 ity of 0.5 mg-3 00:00: [place] mg(2.5 mg 00 Medical base)/3 mL Branch nebulizer solution POLI Galindo 2018-11 Yes Univers -18 ity of 00:00: [place] 00 Medical Branch ipratropium 2018-11 Yes Univer s -albuterol 1-18 ity of 0.5 mg-3 00:00: [place] mg(2.5 mg 00 Medical base)/3 mL Branch nebulizer solution LOR 2018-11 Yes Univers -18 ity of 00:00: [place] 00 Medical Branch ipratropium 2018-11 Yes Univer s -albuterol 1-18 ity of 0.5 mg-3 00:00: [place] mg(2.5 mg 00 Medical base)/3 mL Branch nebulizer solution LOR 2018-11 Yes Univers 1-18 ity of 00:00: [place] 00 Medical Branch ipratropium 2018-11 Yes Univer s -albuterol 1-18 ity of 0.5 mg-3 00:00: [place] mg(2.5 mg 00 Medical base)/3 mL Branch nebulizer solution LOR 2018-11 Yes Univers 1-18 ity of 00:00: [...] 00 Medical base)/3 mL Branch nebulizer solution ipratropium 2018-11 Yes Univer s -albuterol 1-18 ity of 0.5 mg-3 00:00: [place] mg(2.5 mg 00 Medical base)/3 mL Branch nebulizer solution AMBEROS 2018-11 Yes Univers 1-18 ity of 00:00: [place] 00 Medical Branch VIOS 2018-11 Yes Univers 1-18 ity of 00:00: [place] 00 Medical Branch ipratropium 2018-11 Yes Univer s -albuterol 1-18 ity of 0.5 mg-3 00:00: [place] mg(2.5 mg 00 Medical base)/3 mL Branch nebulizer solution AMBEROS 2018-11 Yes Univers 1-18 ity of 00:00: [place] 00 Medical Branch ipratropium 2018-11 Yes Univer s -albuterol 1-18 ity of 0.5 mg-3 00:00: [place] mg(2.5 mg 00 Medical base)/3 mL Branch nebulizer solution OS 2018-11 Yes Univers 1-18 ity of 00:00: [place] 00 Medical Branch ipratropium 2018-11 Yes Univer s -albuterol 1-18 ity of 0.5 mg-3 00:00: [place] mg(2.5 mg 00 Medical base)/3 mL Branch nebulizer solution LOR 2018-11 Yes Univers 1-18 ity of 00:00: [place] 00 Medical Branch ipratropium 2018-11 Yes Univer s -albuterol 1-18 ity of 0.5 mg-3 00:00: [place] mg(2.5 mg 00 Medical base)/3 mL Branch nebulizer solution LOR 2018-11 Yes Univers 1-18 ity of 00:00: [place] 00 Medical Branch ipratropium 2018-11 Yes Univer s -albuterol 1-18 ity of 0.5 mg-3 00:00: [place] mg(2.5 mg 00 Medical base)/3 mL Branch nebulizer solution OS 2018-11 Yes Univers 1-18 ity of 00:00: [place] 00 Medical Branch ipratropium 2018-11 Yes Univer s -albuterol 1-18 ity of 0.5 mg-3 00:00: [place] mg(2.5 mg 00 Medical base)/3 mL Branch nebulizer solution OS 2018-11 Yes Univers 1-18 ity of 00:00: [...] 00 Medical base)/3 mL Branch nebulizer solution Immunizations Ordered Filled Date Status Comments Source Immunization Name Immunization Name [facility] 2023-03-26 Completed University of 00:00:00 [facility] HPV9 2023-01-23 Completed University of 00:00:00 [facility] HPV9 2023-01-23 Completed University of 00:00:00 [facility] HPV9 2023-01-23 Completed University of 00:00:00 [facility] HPV9 2023-01-23 Completed University of 00:00:00 [facility] HPV9 2023-01-23 Completed University of 00:00:00 [facility] HPV9 2023-01-23 Completed University of 00:00:00 [facility] HPV9 2023-01-23 Completed University of 00:00:00 [facility] HPV9 2023-01-23 Completed University of 00:00:00 [facility] HPV9 2023-01-23 Completed University of 00:00:00 [facility] TDAP 2021-10-24 Completed University of 00:00:00 [facility] TDAP 2021-10-24 Completed University of 00:00:00 [facility] TDAP 2021-10-24 Completed University of 00:00:00 [facility] TDAP 2021-10-24 Completed University of 00:00:00 [facility] TDAP 2021-10-24 Completed University of 00:00:00 [facility] TDAP 2021-10-24 Completed University of 00:00:00 [facility] TDAP 2021-10-24 Completed University of 00:00:00 [place] [facility] TDAP 2021-10-24 Completed University of 00:00:00 [facility] TDAP 2021-10-24 Completed University of 00:00:00 [facility] TDAP Unknown Completed [facility] HPV9 Unknown Completed [facility] HPV9 Unknown Completed [facility] HPV9 Unknown Completed [facility] TDAP Unknown Completed [facility] HPV9 Unknown Completed [facility] HPV9 Unknown Completed [facility] HPV9 Unknown Completed [facility] Vital Signs Vital Name Observation Time Observation Value Comments Source Body temperature 2023-07-28 14:55:00 36.44 [facility] 2023-03-26 13:32:00 36.28 [facility] Respiratory rate 2023-03-26 13:32:00 20 /min [facility] Body weight 2023-03-26 13:32:00 78.064 kg Universi ty [facility] BMI 2023-03-26 13:32:00 33.61 kg/m2 Universi ty [facility] Systolic blood 2023-01-23 21:39:00 117 mm[Hg] Univer sity of pressure [facility] Diastolic blood 2023-01-23 21:39:00 73 mm[Hg] Unive rsity of pressure [facility] Heart rate 2023-01-23 21:39:00 87 /min Universi ty [facility] Body temperature 2023-01-23 21:39:00 35.83 [facility] Respiratory rate 2023-01-23 21:39:00 18 /min Univ ersity [facility] Body height 2023-01-23 21:39:00 152.4 cm Universi ty [facility] Body weight 2023-01-23 21:39:00 77.338 kg Universi ty [facility] BMI 2023-01-23 21:39:00 33.30 kg/m2 Universi ty [facility] Systolic blood 2020-08-03 13:35:00 98 mm[Hg] Univer sity of pressure [facility] Diastolic blood 2020-08-03 13:35:00 62 mm[Hg] Unive rsity of pressure [facility] Heart rate 2020-08-03 13:35:00 67 /min Universi ty of [facility] Body temperature 2020-08-03 13:35:00 36.78 Diane Univ ersity of [facility] Respiratory rate 2020-08-03 13:35:00 16 /min Univ ersity of [facility] Body height 2020-08-03 13:35:00 154.9 cm Universi ty of [facility] Body weight 2020-08-03 13:35:00 74.844 kg Universi ty of [facility] BMI 2020-08-03 13:35:00 31.18 kg/m2 Universi ty of [facility] Systolic blood 2020-08-03 13:35:00 98 mm[Hg] Univer sity of pressure [facility] Diastolic blood 2020-08-03 13:35:00 62 mm[Hg] Unive rsity of pressure [facility] Heart rate 2020-08-03 13:35:00 67 /min Universi ty of [facility] Body temperature 2020-08-03 13:35:00 36.78 Diane Univ ersity of [facility] Respiratory rate 2020-08-03 13:35:00 16 /min Univ ersity of [facility] Body height 2020-08-03 13:35:00 154.9 cm Universi ty of [facility] Body weight 2020-08-03 13:35:00 74.844 kg Universi ty of [facility] BMI 2020-08-03 13:35:00 31.18 kg/m2 Universi ty of [facility] Systolic blood 2019-12-27 19:56:00 112 mm[Hg] Univer sity of pressure [facility] Diastolic blood 2019-12-27 19:56:00 63 mm[Hg] Unive rsity of pressure [facility] Heart rate 2019-12-27 19:56:00 88 /min Universi ty of [facility] Body height 2019-12-27 19:56:00 154.9 cm Universi ty of [facility] Body weight 2019-12-27 19:56:00 74.844 kg Universi ty of [facility] [place] [facility] BMI 2019-12-27 19:56:00 31.18 kg/m2 Universi ty of [facility] [place] [facility] Procedures Procedure Date / Time Performed Performing Clinician Sourc e GARDASIL 9 (HPV 9V) 2023-07-28 14:55:44 Anne Bradley Uni versity of [facility] [place] [facility] GARDASIL 9 (HPV 9V) 2023-03-26 13:40:57 Anne Bradley Uni versity of [facility] [place] [facility] PAP SMEAR-LIQUID 2023-01-23 21:43:00 Anne Bradley Univer sity of [facility] GARDASIL 9 (HPV 9V) 2023-01-23 21:31:18 Anne Bradley Uni versity of [facility] [place] [facility] CONSENT/REFUSAL FOR 2023-01-23 21:16:34 Doctor Unassigned, No [facility] DIAGNOSIS AND Name [facility] TREATMENT REFERRAL- 2019-12-22 06:01:00 Doctor Unassigned, No [facility] REQUEST/RESPONSE Name [facility] Encounters Start End Encounter Admission Attending Care Care Encounter Source Date/Time Date/Time Type Type Clinicians Facility Department ID 2024-01-26 2024-01-26 Outpatient R KIRK [facility] [id number] Univers 13:30:00 13:30:00 ANNE robles o f [facility] 2023-07-28 2023-07-28 [facility] [id number] .[id number] Univers 10:00:00 10:15:00 Visit Johnna Kingston SHOWROOM EXECUTIVE DIRECTOR [id number] ity of [facility] [id number] Parvez as MATERNAL [id number] [facility] CH[facility] [address] [place] [address] 2023-07-28 2023-07-28 Outpatient R VASHTI [facility] [id number] Univers 10:00:00 09:59:01 JOHNNA robles [facility] 2023-07-28 2023-07-28 Telephone Vashti [facility] [id number] Univers 00:00:00 00:00:00 Johnna Viramontes SHOWROOM EXECUTIVE DIRECTOR [id number] i ty of [facility] [id number] Parvez as MATERNAL [phone] [facility] [address] [place] [address] 2023-03-26 2023-03-26 Outpatient R VASHTI [facility] [id number] Univers 10:30:00 10:30:00 [facility] 2023-03-26 2023-03-26 Nurse Visit, Jason Nurse [facility] [id number] .[id number] Univers 08:30:00 08:45:00 Visit Johnna Kingston SHOWROOM EXECUTIVE DIRECTOR [id number] 0 ity of REGIONAL [id number] Parvez as MATERNAL [phone] [facility] & [address] 2023-03-26 2023-03-26 Outpatient R VASHTI [facility] [id number] Univers 08:30:00 08:30:00 [facility] 2023-02-04 2023-02-04 Telephone Kirk [facility] [id number] Univers 00:00:00 00:00:00 Anne Yoder SHOWROOM EXECUTIVE DIRECTOR [id number] ity of REGIONAL [id number] Parvez as MATERNAL [phone] [facility] & CHILD [address] [place] [address] 2023-02-04 2023-02-04 Telephone Kirk [facility] [id number] Univers 00:00:00 00:00:00 Anne C SHOWROOM EXECUTIVE DIRECTOR [id number] ity of REGIONAL [id number] Parvez as MATERNAL [phone] [facility] [address] [place] [address] 2023-01-30 2023-01-30 [facility] 1.2.840. [id number] Univers 08:30:00 08:45:00 Visit Anne Bradley SHOWROOM EXECUTIVE DIRECTOR [id number]. 10 ity of REGIONAL [id number] Parvez as MATERNAL [phone] [facility] & CHILD [address] [place] [address] 2023-01-30 2023-01-30 Outpatient R KIRK [facility] [id number] Univers 08:30:00 08:30:00 ANNE margaret o [facility] 2023-01-27 2023-01-27 Telephone Kirk [facility] [id number] Univers 00:00:00 00:00:00 Anne Yoder SHOWROOM EXECUTIVE DIRECTOR [id number] ity of [facility] [id number] Parvez as MATERNAL [phone] [facility] & CHILD [address] [place] [address] 2023-01-23 2023-01-23 Outpatient R KIRK [facility] [id number] Univers 15:45:00 16:40:06 ANNE robles o [facility] 2023-01-23 2023-01-[address] [facility] [id number] Univers 15:45:00 16:40:06 Visit Anne Yoder SHOWROOM EXECUTIVE DIRECTOR [id number] ity of [place] [id number] Parvez as MATERNAL [id number] [facility] [address] [place] [address] 2023-01-23 2023-01-23 Orders Doctor EFRAIN [id number] Univers 00:00:00 00:00:00 Only Unassigned, NATE [id number] ity of [facility] [id number] Parvez as [phone] [address] 2020-11-21 2020-11-21 Outpatient Edwin PARK [facility] [id number] Univers 10:45:00 10:45:00 ARTIS robles o [facility] 2020-11-13 2020-11-13 Outpatient Edwin PARK [facility] [id number] Univers 15:00:00 15:00:00 ARTIS robles o dannie [facility] 2020-08-03 2020-08-03 Outpatient Edwin BRADLEY [facility] [id number] Univers 09:00:00 09:00:00 ANNE robles o [facility] 2020-08-03 2020-08-[address] [facility] [id number] 08:23:11 08:59:25 Visit [facility] C SHOWROOM EXECUTIVE DIRECTOR [id number] REGIONAL [id number] MATERNAL [phone] & CHILD [address] [place] [address] 2020-08-03 2020-08-[address] [facility] [id number] Univers 08:23:11 08:59:25 Visit [facility] C SHOWROOM EXECUTIVE DIRECTOR [id number] ity of REGIONAL [id number] Parvez as MATERNAL [phone] Med ical & CHILD [address] [place] [address] 2020-05-18 2020-05-18 Outpatient Edwin HUGGNIS [facility] [id number] Univers 16:45:00 16:45:00 ESTHELA robles [facility] 2020-05-11 2020-05-11 Outpatient Edwin HUGGINS [facility] [id number] Univers 10:15:00 10:15:00 ESTHELA robles [facility] 2020-05-11 2020-05-11 Office Brian Rosannemoni UNIVERSIT [id number] Univers 09:55:33 10:10:33 Visit Esthela Huggins HEALTH [id number] 0 it[id number] [address] 2020-01-17 2020-01-17 [facility] [id number] Univers 16:15:00 16:15:00 [facility] 2019-12-27 2019-12-[address] [facility] [id number] Univers 13:52:41 14:14:45 [facility] [id number] it y of Surgical [id number] Parvez as Specialti [phone] Md dical [address] 2019-12-27 2019-12-27 [facility] [id number] Univers 13:45:00 13:45:00 [facility] 2019-12-27 2019-12-[address] [facility] [id number] Univers 00:00:00 00:00:00 (Out) [facility] [id number] it y of Surgical [id number] Parvez as Specialti [phone] Me dical es 198 [facility] 2019-12-22 2019-12-22 Orders Doctor EFRAIN [id number] Univers 00:00:00 00:00:00 Only Unassigned, NATE [id number] ity of [facility] [id number] Parvez as [phone] [facility] [address] 2019-11-15 2019-11-15 Telephone Joanne, UNIVERSIT [id number] Univers 00:00:00 00:00:00 Na Cook HEALTH [id number] i ty [id number] [phone] [facility] [address] Results Test Description Test Time Test Comments Results Result Comments Source SARS-CoV-2 (COVID-19), RT-PCR/TMA 2021-11-25 10:45:46 Test Item Value Reference Range Interpretation Comme nts SARS-CoV-2 INTERPRETATION NEGATIVE SEE NOTE S ARS-CoV-2 RNA NOT (test code = 55592) DETECTED Negative results do not preclude SARS-C [...] is h igh. SOURCE (test code = 73166) NOT SPECIFIED Note: Methodology is Adore Carrington Real-Time RT-PCR. The expected result or reference range is NEGATI VE (Not Detected). For more information regarding COVID -19 testing to include clinica linformation, methodology det ail, intended use, FDA author ization andrecommended fact sheets for patients or hea lthcare providers, see [facility] Announcement: S ARS-CoV-2 (COVID-19) by Yoav LUNDBERG at URL below (note,fact shee ts are provided by method given in report:https:// [email or web address] [email or web address]/kyle t-communications/ Alternatively, see downloadable PDF fact sheet at:[email or web address]/[email or web address]-RT-PCR UNLE SS OTHERWISE INDICATED, ALL TESTING PERFORMED [facility]. [address] [place] [address] 4 WOOL HAT FLANGER: Pranav ALEX [id number] CAP ACCREDITATION N O. [id number]
[2023-08-12] MEDS ORDERED: ONDANSETRON 4 MG/2 ML VIAL ONE ×2 (07:04→07:23)
[2023-08-12] MEDS ORDERED: MORPHINE 4 MG/ML SYR ONE ×2 (07:04→07:23)
[2023-08-12] MEDS ORDERED: NA CHLORIDE 0.9% 0 ML ONE (07:04)
[2023-08-12] MEDS ORDERED: FAMOTIDINE 20 MG/2 ML VIAL IV ONE ×2 (07:04→07:24)
[2023-08-12] MEDS ORDERED: NA CHLORIDE 0.9% 1,000 ML ONE (07:23)
[2023-08-12 07:28] LABS: Absolute Lymphocytes (CBC) 0.5 K/uL (0.7-4.9); Hematocrit 41.3 % (36.0-45.0); Platelets 191 thou/uL (152-406)
--- NOTE | 2023-08-12 07:35 | RAD REPORT ---
EXAM DESCRIPTION: CT - Abdomen Pelvis W Contrast - 08/12/2023 7:17 am CLINICAL HISTORY: Abdominal pain COMPARISON: none. TECHNIQUE: Computed axial tomography of the abdomen pelvis was obtained. 100 cc Isovue-300 was admin istered intravenously. Oral contrast was not requested which limits evaluation of bowel and appendix All CT scans are performed using dose optimization technique as appropriate and may include automated exposure control or mA/KV adjustment according to patient size. FINDINGS: The liver, spleen, pancreas, adrenal and kidneys appear unremarkable. There is no evidence of diverticulitis. Normal appendix. Irregularly shaped right ovarian follicle has recent sleeve ruptured. Small amount free fluid within the pelvis Fluid within nondilated large and small bowel IMPRESSION: Irregularly shaped right ovarian follicle has recent sleeve ruptured. Small amount free fluid within the pelvis Fluid within nondilated large and small bowel may indicate an enteritis
[2023-08-12 07:36] LABS: Albumin 3.6 g/dL (3.4-5.0); Bilirubin Total 0.7 mg/dL (0.2-1.0); Potassium 3.8 mEq/L (3.5-5.1); Protein, Total 7.4 g/dL (6.4-8.2)
[2023-08-12 07:46] LABS: Specific Gravity 1.029 (1.005-1.030)
[2023-08-12 07:48] LABS: Specific Gravity 1.029 (1.005-1.030); Urine Bacteria <20 /HPF (<20); Urine Bilirubin NEGATIVE (Negative); Urine Blood Negative (Negative); Urine Clarity Extremely Turbid (Clear); Urine Color Yellow (Yellow); Urine Glucose NEGATIVE (Negative); Urine Mucus 4+ /HPF (None Seen); Urine Protein 1+ (Negative); Urine RBC <5 /HPF (None Seen); Urine Urobilinogen Normal (Normal)
[2023-08-12 08:51] LABS: Platelet Estimate ADEQ; White Blood Cell Scan OK (OK)
[2023-08-12 08:52] LABS: Blood Morphology Comment NOT SEEN (NOT SEEN)
--- NOTE | 2023-08-12 09:13 | RAD REPORT ---
EXAM DESCRIPTION: US - Abdomen Exam Limited - 08/12/2023 8:32 am CLINICAL HISTORY: Abdominal pain. COMPARISON: None. FINDINGS: The gallbladder wall is not thickened. A gallstone is not seen. The biliary tree is normal caliber. IMPRESSION: Unremarkable gallbladder ultrasound.
--- NOTE | 2023-08-12 09:16 | ER ---
Nurse's Notes [facility] Name: Maida Tomlin Age: 38 yrs Sex: Female : 1985 Arrival Date: 08/12/2023 Time: 06:33 Bed 6 Private MD: Diagnosis: Other ovarian cysts-With rupture Presentation: 08/12 06:49 Chief complaint: Patient states: upper abdominal pain that spread to lower abdomen, jw7 with nausea and vomiting this morning, stated "it feels like contractions". Coronavirus screen: At this time, the client does not indicate any symptoms associated with coronavirus-19. Ebola Screen: No symptoms or risks identified at this time. Initial Sepsis Screen: Does the patient meet any 2 criteria? No. Patient's initial sepsis screen is negative. Does the patient have a suspected source of infection? No. Patient's initial sepsis screen is negative. Risk Assessment: Do you want to hurt yourself or someone else? Patient reports no desire to harm self or others. Onset of symptoms was August 11, 2023 at 15:00. 06:49 Acuity: SARKIS 3 jw7 06:49 Method Of Arrival: Ambulatory jw7 Triage Assessment: 06:51 General: Appears in no apparent distress. uncomfortable, Behavior is calm, cooperative. jw7 Pain: Complains of pain in right upper quadrant and left upper quadrant Pain radiates to right lower quadrant and left lower quadrant Pain currently is 8 out of 10 on a pain scale. Quality of pain is described as crampy, pressure, Pain began 1 day ago. Is intermittent. EENT: No deficits noted. No signs and/or symptoms were reported regarding the EENT system. Neuro: Patterson Agitation-Sedation Scale (RASS): 0 - Alert and Calm Level of Consciousness is awake, alert, obeys commands, Oriented to person, place, time, situation. Cardiovascular: Capillary refill < 3 seconds Clubbing of nail beds is absent JVD is absent Patient's skin is warm and dry. Respiratory: Airway is patent Trachea midline Respiratory effort is even, unlabored, Respiratory pattern is regular, symmetrical. GI: Abdomen is round non-distended, Bowel sounds present X 4 quads. Abd is soft and non tender X 4 quads. : No deficits noted. No signs and/or symptoms were reported regarding the genitourinary system. Derm: Skin is intact, is healthy with good turgor, Skin is dry, Skin is normal, Skin temperature is warm. Musculoskeletal: No signs and/or symptoms reported regarding the musculoskeletal system. Circulation, motion, and sensation intact. Range of motion: intact in all extremities. 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 Flu vaccine is not up to date. - Social history:: Smoking status: Patient denies any tobacco usage or history of. Patient/guardian denies using alcohol, street drugs. - Family history:: not pertinent. Screenin:48 [facility] ED Fall Risk Assessment (Adult) History of falling in the last 3 months, jw7 including since admission No falls in past 3 months (0 pts) Score/Fall Risk Level 0 - 2 = Low Risk Oriented to surroundings, Maintained a safe environment. Abuse screen: Denies threats or abuse. Denies injuries from another. Nutritional screening: No deficits noted. Tuberculosis screening: No symptoms or risk factors identified. Assessment: 07:23 Reassessment: Pt returned from CT. General: Appears in no apparent distress. rs5 comfortable, Behavior is calm, cooperative. Pain: Denies pain. Neuro: Level of Consciousness is awake, alert, obeys commands, Oriented to person, place, time, situation. Cardiovascular: Rhythm is regular. Cardiovascular: Heart tones S1 S2 present. Respiratory: Airway is patent Respiratory effort is even, unlabored, Respiratory pattern is regular, symmetrical, Breath sounds are clear bilaterally. GI: Abdomen is round non-distended, Bowel sounds present X 4 quads. Abd is soft and non tender X 4 quads. Reports "I was having 7/10 abdominal pain all over before I was given morphine and now I am not in pain at the moment. Pain started this morning". : No signs and/or symptoms were reported regarding the genitourinary system. EENT: No signs and/or symptoms were reported regarding the EENT system. Derm: Skin is dry, Skin is normal, Skin temperature is warm. Musculoskeletal: Range of motion: intact in all extremities. Vital Signs: 06:49 BP 118 / 87; Pulse 106; Resp 17 S; Temp 98.2(O); Pulse Ox 99% on R/A; Weight 70.31 kg; jw7 Height 5 ft. 0 in. ; Pain 8/10; 07:15 BP 114 / 62; Pulse 79; Pulse Ox 98% on R/A; rs5 08:20 BP 102 / 63; Pulse 88; Resp 17; Temp 98; Pulse Ox 99% on R/A; rs5 09:16 BP 116 / 60; Pulse 74; Resp 18; Pulse Ox 99% on R/A; rs5 06:49 Body Mass Index 30.27 (70.31 kg, 152.4 cm) jw7 06:49 Pain Scale: Adult jw7 ED Course: 06:35 Patient arrived in ED. ag3 06:41 Randolph Zamarripa MD is Attending Physician. rayna 06:48 Patient has correct armband on for positive identification. Placed in gown. Bed in low jw7 position. Call light in reach. Side rails up X2. 06:48 CBC with Diff Sent. km8 06:48 CMP Sent. km8 06:48 Lipase Sent. km8 06:48 Test, Urine Sent. km8 06:49 Urinalysis w/ reflexes Sent. km8 06:49 Inserted saline lock: 20 gauge in right antecubital area, using aseptic technique. km8 Blood collected. 06:51 Triage completed. jw7 06:57 Arm band placed on. jw7 07:19 CT Abd/Pelvis - IV Contrast Only In Process Unspecified. EDMS 07:29 Attending Physician role handed off by Randolph Zamarripa MD rn 07:29 Cristhian Priest MD is Attending Physician. rn 08:07 Faraz Haque, DOMI is Primary Nurse. rs5 08:32 US Abdomen Limited In Process Unspecified. EDMS 09:15 Duane Zuñiga MD is Referral Physician. rn Administered Medications: 06:55 Drug: NS 0.9% IV 1000 ml IV at 1 bolus Per protocol; 1000 mL bolus Route: IV; Rate: 1 km8 bolus; Site: right antecubital; 06:55 Drug: Famotidine IVP 20 mg IVP once; dilute with 10 mL 0.9% NaCl; give over 2 minutes km8 Route: IVP; Site: right antecubital; 06:55 Drug: Ondansetron IVP 4 mg IVP once; over 2 minutes Route: IVP; Site: right antecubital;km8 06:55 Drug: morphine IVP or IV 4 mg IVP once over 4 mins Route: IVP; Infused Over: 4 mins; km8 Site: right antecubital; Outcome: 09:15 Discharge ordered by . rn 09:31 Patient left the ED. aa5 Signatures: Dispatcher [employer] EDMS Randolph Zamarripa MD MD cha Nieto, Roman, MD MD rn Calderon, Audri, RN RN aa5 Alisha Loyd RN RN ap3 Corie Mayorga3 Danette Ortega RN RN jw7 Faraz Haque RN RN rs5 Piedad Ledezma RN RN km8 Corrections: (The following items were deleted from the chart) 08:17 07:23 GI: Abdomen is round non-distended, Bowel sounds present X 4 quads. Abd is soft rs5 and non tender X 4 quads. rs5 09:16 08:15 BP 114 / 62; Pulse 79bpm; Pulse Ox 98% RA; ap3 rs5
--- NOTE | 2023-08-12 09:16 | EDPHYS ---
Physician Documentation [facility] Name: Maida Tomlin Age: 38 yrs Sex: Female : 1985 Arrival Date: 08/12/2023 Time: 06:33 Bed 6 Private MD: ED Physician Cristhian Priest HPI: 08/12 06:53 This 38 yrs old Female presents to ER via Ambulatory with complaints of rayna Abdominal Pain. 06:53 The patient presents with abdominal pain in the upper abdomen. Onset: The rayna symptoms/episode began/occurred yesterday. The symptoms do not radiate. Associated signs and symptoms: none. The symptoms are described as crampy. Modifying factors: The symptoms are alleviated by nothing, the symptoms are aggravated by food. Severity of pain: At its worst the pain was mild in the emergency department the pain is unchanged. The patient has experienced similar episodes in the past, several times. 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 Flu vaccine is not up to date. - Social history:: Smoking status: Patient denies any tobacco usage or history of. Patient/guardian denies using alcohol, street drugs. - Family history:: not pertinent. ROS: 06:56 Constitutional: Negative for fever, chills, and weight loss, Eyes: Negative for injury, rayna pain, redness, and discharge, ENT: Negative for injury, pain, and discharge, Neck: Negative for injury, pain, and swelling, Cardiovascular: Negative for chest pain, palpitations, and edema, Respiratory: Negative for shortness of breath, cough, wheezing, and pleuritic chest pain, Back: Negative for injury and pain, : Negative for injury, bleeding, discharge, and swelling, MS/Extremity: Negative for injury and deformity, Skin: Negative for injury, rash, and discoloration, Neuro: Negative for headache, weakness, numbness, tingling, and seizure, Psych: Negative for depression, anxiety, suicide ideation, homicidal ideation, and hallucinations, Allergy/Immunology: Negative for hives, rash, and allergies, Endocrine: Negative for neck swelling, polydipsia, polyuria, polyphagia, and marked weight changes, Hematologic/Lymphatic: Negative for swollen nodes, abnormal bleeding, and unusual bruising, 06:56 Abdomen/GI: Positive for abdominal pain, of the epigastric area, right upper quadrant and left upper quadrant, Exam: 06:56 Constitutional: This is a well developed, well nourished patient who is awake, alert, rayna and in no acute distress. Head/Face: Normocephalic, atraumatic. Eyes: Pupils equal round and reactive to light, extra-ocular motions intact. Lids and lashes normal. Conjunctiva and sclera are non-icteric and not injected. Cornea within normal limits. Periorbital areas with no swelling, redness, or edema. ENT: Nares patent. No nasal discharge, no septal abnormalities noted. Tympanic membranes are normal and external auditory canals are clear. Oropharynx with no redness, swelling, or masses, exudates, or evidence of obstruction, uvula midline. Mucous membranes moist. Neck: Trachea midline, no thyromegaly or masses palpated, and no cervical lymphadenopathy. Supple, full range of motion without nuchal rigidity, or vertebral point tenderness. No Meningismus. Chest/axilla: Normal chest wall appearance and motion. Nontender with no deformity. No lesions are appreciated. Cardiovascular: Regular rate and rhythm with a normal S1 and S2. No gallops, murmurs, or rubs. Normal PMI, no JVD. No pulse deficits. Respiratory: Lungs have equal breath sounds bilaterally, clear to auscultation and percussion. No rales, rhonchi or wheezes noted. No increased work of breathing, no retractions or nasal flaring. Back: No spinal tenderness. No costovertebral tenderness. Full range of motion. Female : Normal external genitalia. Skin: Warm, dry with normal turgor. Normal color with no rashes, no lesions, and no evidence of cellulitis. MS/ Extremity: Pulses equal, no cyanosis. Neurovascular intact. Full, normal range of motion. Neuro: Awake and alert, GCS 15, oriented to person, place, time, and situation. Cranial nerves II-XII grossly intact. Motor strength 5/5 in all extremities. Sensory grossly intact. Cerebellar exam normal. Normal gait. Psych: Awake, alert, with orientation to person, place and time. Behavior, mood, and affect are within normal limits. 06:56 Abdomen/GI: Inspection: abdomen appears normal, Bowel sounds: normal, Palpation: mild abdominal tenderness, in the epigastric area and right upper quadrant, Liver: no appreciated palpable abnormalities, Hernia: not appreciated, Vital Signs: 06:49 BP 118 / 87; Pulse 106; Resp 17 S; Temp 98.2(O); Pulse Ox 99% on R/A; Weight 70.31 kg; jw7 Height 5 ft. 0 in. ; Pain 8/10; 07:15 BP 114 / 62; Pulse 79; Pulse Ox 98% on R/A; rs5 08:20 BP 102 / 63; Pulse 88; Resp 17; Temp 98; Pulse Ox 99% on R/A; rs5 09:16 BP 116 / 60; Pulse 74; Resp 18; Pulse Ox 99% on R/A; rs5 06:49 Body Mass Index 30.27 (70.31 kg, 152.4 cm) [facility] 06:49 Pain Scale: Adult [facility] MDM: 06:41 Patient medically screened. [facility] 06:56 Data reviewed: vital signs, nurses notes, lab test result(s), radiologic studies, CT rayna scan, ultrasound. Consideration of Admission/Observation Escalation of care including admission/observation considered. I considered the following discharge prescriptions or medication management in the emergency department Medications were administered in the Emergency Department. See MAR. Independent interpretation of the following test(s) in the Emergency Department CT Scan: My interpretation is ct , usg. Test considered but Not performed: EKG: no ekg. Care significantly affected by the following chronic conditions: no hx. 09:14 Differential diagnosis: appendicitis, bowel obstruction, cholecystitis, Cholelithiasis, rn diverticulitis, non-specific abd pain, pancreatitis, Peptic Ulcer Disease, Ureterolithiasis, urinary tract infection, Ruptured ovarian cyst. Counseling: I had a detailed discussion with the patient and/or guardian regarding the historical points, exam findings, and any diagnostic results supporting the discharge/admit diagnosis, lab results, radiology results, the need for outpatient follow up, to return to the emergency department if symptoms worsen or persist or if there are any questions or concerns that arise at home. Response to treatment: the patient's symptoms have markedly improved after treatment, and as a result, I will discharge patient. Special discussion: Based on the patient's Hx, exam, and Dx evaluation, there is no indication for emergent surgery or inpatient Tx. It is understood by the patient/guardian that if the Sx's persist or worsen they need to return immediately for re-evaluation. I discussed with the patient/guardian in detail that at this point there is no indication for admission to the hospital. It is understood, however, that if the symptoms persist or worsen the patient needs to return immediately for re-evaluation. 08/12 06:43 Order name: CBC with Diff; Complete Time: 08:58 rayna 08/12 06:43 Order name: CMP; Complete Time: 07:40 rayna 08/12 06:43 Order name: Lipase; Complete Time: 07:40 rayna 08/12 06:43 Order name: Test, Urine; Complete Time: 08:07 rayna 08/12 06:43 Order name: Urinalysis w/ reflexes; Complete Time: 08:07 rayna 08/12 07:31 Order name: CBC Smear Scan; Complete Time: 08:58 EDMS 08/12 06:43 Order name: CT Abd/Pelvis - IV Contrast Only; Complete Time: 07:40 rayna 08/12 07:42 Order name: US Abdomen Limited; Complete Time: 09:14 rn 08/12 06:43 Order name: IV Saline Lock; Complete Time: 06:48 rayna 08/12 06:43 Order name: Labs collected and sent; Complete Time: 06:48 rayna Administered Medications: 06:55 Drug: NS 0.9% IV 1000 ml IV at 1 bolus Per protocol; 1000 mL bolus Route: IV; Rate: 1 km8 bolus; Site: right antecubital; 06:55 Drug: Famotidine IVP 20 mg IVP once; dilute with 10 mL 0.9% NaCl; give over 2 minutes km8 Route: IVP; Site: right antecubital; 06:55 Drug: Ondansetron IVP 4 mg IVP once; over 2 minutes Route: IVP; Site: right antecubital;km8 06:55 Drug: morphine IVP or IV 4 mg IVP once over 4 mins Route: IVP; Infused Over: 4 mins; km8 Site: right antecubital; Disposition Summary: 08/12/23 09:15 Discharge Ordered Notes: Location: Home rn Problem: new rn Symptoms: have improved rn Condition: Stable rn Diagnosis - Other ovarian cysts - With rupture rn Followup: [facility] - With: Private Physician - When: 2 - 3 days - Reason: Recheck today's complaints, Continuance of care, Re-evaluation by your physician Followup: rayna - With: Duane Zuñiga MD - When: 2 - 3 days - Reason: Recheck today's complaints, Re-evaluation by your physician Discharge Instructions: - Discharge Summary Sheet [facility] - Abdominal Pain, Adult [facility] - Ovarian Cyst rn Forms: - Medication Reconciliation Form rn - Thank You Letter rn - Antibiotic rn child - Prescription Opioid Use rn - Patient Portal Instructions rn - Leadership Thank You Letter rn - Work release form jl7 Prescriptions: - ondansetron 4 mg Oral Tablet,disintegrating - take 1 tablet ORAL route every 6-8 hours as needed for nausea and vomiting; 10 rn tablet; Refills: 0, Product Selection Permitted - Diclofenac Sodium 75 mg Oral tablet, delayed release (enteric coated) - take 1 tablet ORAL route 2 times per day; 20 tablet; Refills: 0, Product rn Selection Permitted Signatures: Dispatcher [employer] Randolph Duran MD MD cha Nieto, Roman, MD MD rn Waits, Jodi RN RN jw7 Piedad Ledezma RN RN km8
[2023-08-12 09:39] VITALS: TEMP 98; O2SAT 99
[2023-08-12 09:41] VITALS: BP 116/60
== END 2023-08-12 09:31 | disposition home or self-care (01) ==
LOC: ER 06:33
DX: N83.299 Other ovarian cyst, unspecified side (principal)
CPT/HCPCS: 36415; 74177; 76705; 80053; 81001; 81025; 83690; 85025; 96374; 96375; 99284; J2405; J7030; Q9967

== ENCOUNTER 2023-08-18 22:10 | Emergency (ER) | payer SELFPAY ==
--- OUTSIDE RECORDS SUMMARY | 2023-08-18 22:14 | XMS REPORT | Continuity of Care Document ---
:1985 Author Organization [facility] t Address [address] [facility] [address] [place] [address] Care Team Providers Name Role Phone Johnna Kingston CNM Primary Care Physician [phone] ANNE BRADLEY Attending Clinician Unavailable Visit, Jason Nurse Attending Clinician Unavailable Johnna Kingston CNM Attending Clinician JOHNNA KINGSTON Attending Clinician Unavailable Kirk Anne QUINN Attending Clinician [phone] Lab, Jason Attending Clinician Unavailable Doctor Unassigned, [place] Attending Clinician Unavailable ARTIS PARK Attending Clinician Unavailable ESTHELA HUGGINS Attending Clinician Unavailable Steven Torres Attending Clinician Esthela Huggins MD Attending Clinician BROOK CALHOUN Attending Clinician Unavailable Brook Calhoun MD Attending Clinician Na Rubio CNM Attending Clinician Payers Payer Name Policy Type Policy Number Effective Date Expiration Date Stepan PIÑA STAR [id number] 2022 00:00:00 Problems Condition Condition Condition Status Onset Resolution Last Treating Co mments Source Name Details Category Date Date Treatment Clinician Date History of History of Disease Active U nivers tubal tubal 3-23 ity of ligation ligation 00:00: [place] [address] 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 Overview: [...] (HPV) (HPV) Other Other Disease Active 2018-11 [facility] general general 2-02 [place] of [place] advice and advice 00 Me dical for for Branch contracept contracept marian marian management management Obesity Obesity Disease Active 2018-11 [facility] (BMI (BMI 2-02 ity of 30-39.9) 30-39.9) 00:00: [address] Allergies, Adverse Reactions, Alerts Allergy Allergy Status Severity Reaction(s) Onset Inactive Treating Comm ents Source Name Type Date Date Clinician NO KNOWN Drug Active Univers ALLERGIE Class ity of S [facility] Social History Social Habit Start Date Stop Date Quantity Comments Source Sexual orientation Univer sity of [facility] Exposure to 2023-03-16 2023-03-26 Not sure [facility] SARS-CoV-2 (event) 00:00:00 08:29:00 [facility] History of Social 2023-01-23 2023-01-23 Univers ity of function 00:00:00 00:00:00 [facility] Alcohol intake 2023-01-23 2023-01-23 Ex-drinker [facility] 00:00:00 00:00:00 (finding) [facility] Tobacco use and 2019-10-04 2019-10-04 Smokeless Universit y of exposure 00:00:00 00:00:00 tobacco non-user [facility] Sex Ass[birth year] Universit y of 00:00:00 00:00:00 [facility] Smoking Status Start Date Stop Date Source Never smoked tobacco [facility] Medications Ordered Filled Start Stop Current Ordering Indication Dosage Frequency Signature Comments Components Source Medication Medication Date Date Medication? Clinician (SIG) Name Name fluconazole 2022-0 2023- No [id number] 150mg Take 1 Univers (DIFLUCAN) 01-27 tablet by ity of 150 mg 00:00[place] 04:59 [place] tablet [place] :00 now for 1 Medical dose. Branch HYDROCORTIS 2020-0 Yes [id number] Apply to Univers ONE-HYDROQU 7-09 area(s) at it y of [place] 00 Medical 1-4-0.025 % Branch TOPICAL CREAM HYDROCORTIS 2020-0 Yes [id number] Apply to Univers ONE-HYDROQU 7-09 area(s) at it y of [place] 00 Medical 1-4-0.025 % Branch TOPICAL CREAM HYDROCORTIS 2020-0 Yes [id number] Apply to Univers ONE-HYDROQU 7-09 area(s) at it y of [place] 00 Medical 1-4-0.025 % Branch TOPICAL CREAM HYDROCORTIS 2020-0 Yes [id number] Apply to Univers ONE-HYDROQU 7-09 area(s) at it y of [place] 00 Medical 1-4-0.025 % Branch TOPICAL CREAM HYDROCORTIS 2020-0 Yes [id number] Apply to Univers ONE-HYDROQU 7-09 area(s) at it y of [place] 00 Medical 1-4-0.025 % Branch TOPICAL CREAM HYDROCORTIS 2020-0 Yes [id number] Apply to Univers ONE-HYDROQU 7-09 area(s) at it y of [place] NO[place] 00 Medical 1-4-0.025 % Branch TOPICAL CREAM HYDROCORTIS 2020-0 Yes [id number] Apply to Univers ONE-HYDROQU 7-09 area(s) at it y of [place] NO[place] 00 Medical 1-4-0.025 % Branch TOPICAL CREAM HYDROCORTIS 2020-0 Yes [id number] Apply to Univers ONE-HYDROQU 7-09 area(s) at it y of [place] NO[place] 00 Medical 1-4-0.025 % Branch TOPICAL CREAM HYDROCORTIS 2020-0 Yes [id number] Apply to Univers ONE-HYDROQU 7-09 area(s) at it y of [place] NO[place] 00 Medical 1-4-0.025 % Branch TOPICAL CREAM HYDROCORTIS 2020-0 Yes [id number] Apply to Univers ONE-HYDROQU 7-09 area(s) at it y of [place] 00 Medical 1-4-0.025 % Branch TOPICAL CREAM HYDROCORTIS 2020-0 Yes [id number] Apply to Univers ONE-HYDROQU 7-09 area(s) at it y of [place] NO[place] 00 Medical 1-4-0.025 % Branch TOPICAL CREAM HYDROCORTIS 2020-0 Yes [id number] Apply to Univers ONE-HYDROQU 7-09 area(s) at it y of [place]: [place] 00 Medical 1-4-0.025 % Branch TOPICAL CREAM HYDROCORTIS 2020-0 Yes [id number] Apply to Univers ONE-HYDROQU 7-09 area(s) at it y of [place] 00:00: [place] NO[place] 00 Medical 1-4-0.025 % Branch TOPICAL CREAM HYDROCORTIS 2020-0 Yes [id number] Apply to Univers ONE-HYDROQU 7-09 area(s) at it y of [place]: [place] NO[place] 00 Medical 1-4-0.025 % Branch TOPICAL CREAM HYDROCORTIS 2020-0 Yes [id number] Apply to Univers ONE-HYDROQU 7-09 area(s) at it y of [place]: [place] NO[place] 00 Medical 1-4-0.025 % Branch TOPICAL CREAM HYDROCORTIS 2020-0 Yes [id number] Apply to Univers ONE-HYDROQU 7-09 area(s) at it y of [place]: [place] NO[place] 00 Medical 1-4-0.025 % Branch TOPICAL CREAM HYDROCORTIS 2020-0 Yes [id number] Apply to Univers ONE-HYDROQU 7-09 area(s) at it y of [place]: [place] NO[place] 00 Medical 1-4-0.025 % Branch TOPICAL CREAM HYDROCORTIS 2020-0 Yes [id number] Apply to Univers ONE-HYDROQU 7-09 area(s) at it y of [place]: [place] 00 Medical 1-4-0.025 % Branch TOPICAL CREAM diclofenac 2020-2019- No [id number] 75mg Take 1 Univers 75 mg EC 2-24 01- [id number] tablet by ity of tablet 00:00: 04:59 mouth 2 [place] 00 :00 (two) Medical times [place] daily with meals for 30 days. diclofenac 2019-2019- No [id number] 75mg Take 1 Univers 75 mg EC 201-26 [id number] tablet by ity of tablet 00:00: 04:59 mouth 2 [place] 00 :00 (two) Medical times [place] daily with meals for 30 days. diclofenac 2020-2019- No [id number] 75mg Take 1 Univers 75 mg EC 2- [id number] tablet by ity of tablet 00:00: 04:59 mouth 2 [place] 00 :00 (two) [facility] times [place] daily with meals for 30 days. multivitami 2020- No [id number] 1{tbl} Take 1 Univers n tablet 11-11 tablet by ity o f 00:00: 05:59 mouth [place] 00 :00 daily. Medical Branch multivitami 2020- No [id number] 1{tbl} Take 1 Univers n tablet 11-11 tablet by ity o f 00:00: 05:59 mouth [place] 00 :00 daily. Medical Branch multivitami 2020- No [id number] 1{tbl} Take 1 Univers n tablet 11-11 tablet by ity o f 00:00: 05:59 mouth [place] 00 :00 daily. Medical Branch multivitami 2019-0 2020- No [id number] 1{tbl} Take 1 Univers n tablet 11-11 tablet by ity o f 00:00: 05:59 mouth [place] 00 :00 daily. Medical Branch multivitami 2020- No [id number] 1{tbl} Take 1 Univers n tablet 11-11 tablet by ity o f 00:00: 05:59 mouth [place] 00 :00 daily. Medical Branch multivitami 2020-2020- No [id number] 1{tbl} Take 1 Univers n tablet 11-11 tablet by ity o f 00:00: 05:59 mouth [place] 00 :00 daily. [facility] Branch multivitami 2020-2020- No [id number] 1{tbl} Take 1 Univers n tablet 11-11 tablet by ity o f 00:00: 05:59 mouth [place] 00 :00 daily. Medical Branch multivitami 2020-2020- No [id number] 1{tbl} Take 1 Univers n tablet 11-11 tablet by ity o f 00:00: 05:59 mouth [place] 00 :00 daily. Medical Branch multivitami 2019-2020- No [id number] 1{tbl} Take 1 Univers n tablet 11-11 tablet by ity o f 00:00: 05:59 mouth [place] 00 :00 daily. Medical Branch multivitami 2020-2020- No [id number] 1{tbl} Take 1 Univers n tablet 11-11 tablet by ity o f 00:00: 05:59 mouth [place] 00 :00 daily. [facility] Branch multivitami 2019-2020- No [id number] 1{tbl} Take 1 Univers n tablet 11-11 tablet by ity o f 00:00: 05:59 mouth [place] 00 :00 daily. Medical Branch multivitami 20202020- No [id number] 1{tbl} Take 1 Univers n tablet 11-11 [...] Status Comments Source Immunization Name Immunization Name [facility] 2023-03-26 Completed University of 00:00:00 [facility] HPV9 2023-01-23 Completed University of 00:00:00 [facility] HPV9 2023-01-23 Completed University of 00:00:00 [facility] HPV9 2023-01-23 Completed University of 00:00:00 [facility] HPV9 2023-01-23 Completed University of 00:00:00 [facility] HPV9 2023-01-23 Completed University of 00:00:00 [facility] HPV9 2023-01-23 Completed University of 00:00:00 [facility] HPV9 2023-01-23 Completed University of 00:00:00 [facility] HPV9 2023-01-23 Completed University of 00:00:00 [facility] HPV9 2023-01-23 Completed University of 00:00:00 [facility] TDAP 2021-10-24 Completed University of 00:00:00 [facility] TDAP 2021-10-24 Completed University of 00:00:00 [facility] TDAP 2021-10-24 Completed University of 00:00:00 [facility] TDAP 2021-10-24 Completed University of 00:00:00 [facility] TDAP 2021-10-24 Completed University of 00:00:00 [facility] TDAP 2021-10-24 Completed University of 00:00:00 [facility] TDAP 2021-10-24 Completed University of 00:00:00 [facility] TDAP 2021-10-24 Completed University of 00:00:00 [facility] TDAP 2021-10-24 Completed University of 00:00:00 [facility] TDAP Unknown Completed [facility] HPV9 Unknown Completed [facility] HPV9 Unknown Completed [facility] HPV9 Unknown Completed [facility] TDAP Unknown Completed [facility] HPV9 Unknown Completed [facility] HPV9 Unknown Completed [facility] HPV9 Unknown Completed [facility] Vital Signs Vital Name Observation Time Observation Value Comments Source Body temperature 2023-07-28 14:55:00 [facility].44 [facility] 2023-03-26 13:32:00 36.28 [facility] Respiratory rate 2023-03-26 13:32:00 20 /min [facility] Body weight 2023-03-26 13:32:00 78.064 kg Universi ty [facility] BMI 2023-03-26 13:32:00 33.61 kg/m2 Universi ty [facility] Systolic blood 2023-01-23 21:39:00 117 mm[Hg] Univer sity of pressure [facility] Diastolic blood 2023-01-23 21:39:00 73 mm[Hg] Unive rsity of pressure [facility] Heart rate 2023-01-23 21:39:00 87 /min Universi ty [facility] Body temperature 2023-01-23 21:39:00 35.83 [facility] Res[facility] rate 2023-01-23 21:39:00 18 /min Univ ersity [facility] Body height 2023-01-23 21:39:00 152.4 cm Universi ty [facility] Body weight 2023-01-23 21:39:00 77.338 kg Universi ty [facility] BMI 2023-01-23 21:39:00 33.30 kg/m2 Universi ty [facility] Systolic blood 2020-08-03 13:35:00 98 mm[Hg] Univer sity of pressure [facility] Diastolic blood 2020-08-03 13:35:00 62 mm[Hg] Unive rsity of pressure [facility] Heart rate 2020-08-03 13:35:00 67 /min Universi ty of [facility] Body temperature 2020-08-03 13:35:00 36.78 Diane Univ ersity of [facility] Respiratory rate 2020-08-03 13:35:00 16 /min Univ ersity of [facility] Body height 2020-08-03 13:35:00 154.9 cm Universi ty of [facility] Body weight 2020-08-03 13:35:00 74.844 kg Universi ty of [facility] BMI 2020-08-03 13:35:00 31.18 kg/m2 Universi ty of [facility] Systolic blood 2020-08-03 13:35:00 98 mm[Hg] Univer sity of pressure [facility] Diastolic blood 2020-08-03 13:35:00 62 mm[Hg] Unive rsity of pressure [facility] Heart rate 2020-08-03 13:35:00 67 /min Universi ty of [facility] Body temperature 2020-08-03 13:35:00 36.78 Diane Univ ersity of [facility] Respiratory rate 2020-08-03 13:35:00 16 /min Univ ersity of [facility] Body height 2020-08-03 13:35:00 154.9 cm Universi ty of [facility] Body weight 2020-08-03 13:35:00 74.844 kg Universi ty of [facility] BMI 2020-08-03 13:35:00 31.18 kg/m2 Universi ty of [facility] Systolic blood 2019-12-27 19:56:00 112 mm[Hg] Univer sity of pressure [facility] Diastolic blood 2019-12-27 19:56:00 63 mm[Hg] Unive rsity of pressure [facility] Heart rate 2019-12-27 19:56:00 88 /min Universi ty of [facility] Body height 2019-12-27 19:56:00 154.9 cm Universi ty of [facility] Body weight 2019-12-27 19:56:00 74.844 kg Universi ty of [facility] BMI 2019-12-27 19:56:00 31.18 kg/m2 Universi ty [facility] Procedures Procedure Date / Time Performed Performing Clinician Sourc e GARDASIL 9 (HPV 9V) 2023-07-28 14:55:44 Anne Bradley Uni versity of [facility] GARDASIL 9 (HPV 9V) 2023-03-26 13:40:57 Anne Bradley Uni versity of [facility] PAP SMEAR-LIQUID 2023-01-23 21:43:00 Anne Bradley Univer sity of [facility] GARDASIL 9 (HPV 9V) 2023-01-23 21:31:18 Anne Bradley Uni versity of [facility] CONSENT/REFUSAL FOR 2023-01-23 21:16:34 Doctor Unassigned, No [facility] DIAGNOSIS AND Name [facility] TREATMENT REFERRAL- 2019-12-22 06:01:00 Doctor Unassigned, No [facility] REQUEST/RESPONSE Name [facility] Encounters Start End Encounter Admission Attending Care Care Encounter Source Date/Time Date/Time Type Type Clinicians Facility Department ID 2024-01-26 2024-01-26 Outpatient R KIRK [facility] [id number] Univers 13:30:00 13:30:00 ANNE robles o f [facility] 2023-07-28 2023-07-28 [facility] 1.2 .[id number] Univers 10:00:00 10:15:00 Visit Johnna Kingston HEALTHCARE MANAGER 350.1.13.1 0 ity of [facility] [id number] Parvez as MATERNAL [phone] [facility] & CHILD [address] [place] [address] 2023-07-28 2023-07-28 Outpatient R VASHTI [facility] [id number] Univers 10:00:00 09:59:01 JOHNNA robles [facility] 2023-07-28 2023-07-28 Telephone Vashti [facility] [id number] Univers 00:00:00 00:00:00 Johnna Viramontes HEALTHCARE MANAGER [id number] i ty of [facility] 4.2.7.2.686 Parvez as MATERNAL [phone] [facility] & CHILD [address] [place] [address] 2023-03-26 2023-03-26 Outpatient R VASHTI [facility] [id number] Univers 10:30:00 10:30:00 [facility] 2023-03-26 2023-03-26 Nurse Visit, Jaosn Nurse [facility] 1.2 .840.114 [id number] Univers 08:30:00 08:45:00 Visit Johnna Kingston HEALTHCARE MANAGER 350.1.13.1 0 ity of REGIONAL 4.2.7.2.686 Parvez as MATERNAL [id number] [facility] & [address] 2023-03-26 2023-03-26 Outpatient R VASHTI [facility] [id number] Univers 08:30:00 08:30:00 [facility] [place] [facility] 2023-02-04 2023-02-04 Telephone Kirk [facility] [id number] Univers 00:00:00 00:00:00 Anne Yoder HEALTHCARE MANAGER [id number] ity of REGIONAL 4.2.7.2.686 Parvez as MATERNAL [id number] [facility] & CHILD [address] [place] [address] 2023-02-04 2023-02-04 Telephone Kirk [facility] [id number] Univers 00:00:00 00:00:00 Anne C HEALTHCARE MANAGER [id number] ity of REGIONAL 4.2.7.2.686 Parvez as MATERNAL [id number] [facility] & CHILD [address] [place] [address] 2023-01-30 2023-01-30 [employer] [facility] 1.2.840. [id number] Univers 08:30:00 08:45:00 Visit Anne Bradley HEALTHCARE MANAGER 350.1.13. 10 ity of REGIONAL 4.2.7.2.686 Parvez as MATERNAL [phone] [facility] & CHILD [address] [place] [address] 2023-01-30 2023-01-30 Outpatient R KIRK [facility] [id number] Univers 08:30:00 08:30:00 ANNE margaret o [facility] 2023-01-27 2023-01-27 Telephone Kirk [facility] 1.2.840.114 [id number] Univers 00:00:00 00:00:00 Anne Yoder HEALTHCARE MANAGER [id number] ity of [facility] 4.2.7.2.686 Parvez as MATERNAL [phone] [facility] & CHILD [address] [place] [address] 2023-01-23 2023-01-23 Outpatient R KIRK [facility] [id number] Univers 15:45:00 16:40:06 ANNE robles o [facility] 2023-01-23 2023-01-23 [facility] [id number] Univers 15:45:00 16:40:06 Visit Anne Yoder HEALTHCARE MANAGER 350.1.13.10 ity of [place] [id number] Parvez as MATERNAL [id number] [facility] & CHILD [address] [place] [address] 2023-01-23 2023-01-23 Orders Doctor EFRAIN 1.2.840.114 [id number] Univers 00:00:00 00:00:00 Only Unassigned, NATE 350.1.13.10 ity of [place] [facility] 4.2.7.2.686 Parvez as [id number] [address] 2020-11-21 2020-11-21 Outpatient Edwin PARK [facility] [id number] Univers 10:45:00 10:45:00 ARTIS robles o [facility] 2020-11-13 2020-11-13 Outpatient Edwin PARK [facility] [id number] Univers 15:00:00 15:00:00 ARTIS rboles o dannie [facility] 2020-08-03 2020-08-03 Outpatient Edwin BRADLEY [facility] [id number] Univers 09:00:00 09:00:00 ANNE robles o [facility] 2020-08-03 2020-08-03 [facility] [id number] 08:23:11 08:59:25 Visit [facility] C HEALTHCARE MANAGER 350.1.13.10 REGIONAL 4.2.7.2.686 MATERNAL [phone] & CHILD [address] [place] [address] 2020-08-03 2020-08-03 [facility] [id number] Univers 08:23:11 08:59:25 Visit [facility] C HEALTHCARE MANAGER 350.1.13.10 ity of REGIONAL 4.2.7.2.686 Parvez as MATERNAL [phone] Med ical & CHILD [address] [place] [address] 2020-05-18 2020-05-18 Outpatient Edwin HUGGINS [facility] [id number] Univers 16:45:00 16:45:00 ESTHELA robles [facility] 2020-05-11 2020-05-11 Outpatient Edwin HUGGINS [facility] [id number] Univers 10:15:00 10:15:00 ESTHELA robles [facility] 2020-05-11 2020-05-11 Office Brian Rosannemoni UNIVERSIT [id number] Univers 09:55:33 10:10:33 Visit Esthela Huggins HEALTH 350.1.13.1 0 ity of [place] 4[place]2.[place].2.686 [place] [id number] [address] 2020-01-17 2020-01-17 [facility] [id number] Univers 16:15:00 16:15:[address] [facility] 2019-12-27 2019-12-27 [facility] [id number] Univers 13:52:41 14:14:45 [facility] 350.1.13.10 it y of Surgical 4.2.7.2.686 Parvez as Specialti [id number] Al dical [address] 2019-12-27 2019-12-27 [facility] [id number] Univers 13:45:00 13:45:[address] [facility] 2019-12-27 2019-12-27 Letter [facility] [id number] Univers 00:00:00 00:00:00 (Out) [facility] 350.1.13.10 it y of Surgical 4.2.7.2.686 Parvez as Specialti [phone] Me dical es [address] [facility] 2019-12-22 2019-12-22 Orders Doctor EFRAIN 1.2.840.114 [id number] Univers 00:00:00 00:00:00 Only Unassigned, NATE 350.1.13.10 ity of [place] [facility] 4.2.7.2.686 Parvez as [phone] [facility] [address] [place] 2019-11-15 2019-11-15 Telephone Joanne, UNIVERSIT 1.2.840.114 [id number] Univers 00:00:00 00:00:00 Na Cook HEALTH 350.1.13.10 i ty of [place] 4[place]2.7.2.[place] [phone] [facility] [address] [place] Results Test Description Test Time Test Comments Results Result Comments Source SARS-CoV-2 (COVID-19), RT-PCR/TMA 2021-11-25 10:45:46 Test Item Value Reference Range Interpretation Comme nts SARS-CoV-2 INTERPRETATION NEGATIVE SEE NOTE S ARS-CoV-2 RNA NOT (test code = 71762) DETECTED Negative results do not preclude SARS-C [...] is h igh. SOURCE (test code = 07754) NOT SPECIFIED Note: Methodology is Adore Carrington Real-Time RT-PCR. The expected result or reference range is NEGATI VE (Not Detected). For more information regarding COVID -19 testing to include clinica linformation, methodology det ail, intended use, FDA author ization andrecommended fact sheets for patients or hea lthcare providers, see [facility] Announcement: S ARS-CoV-2 (COVID-19) by Yoav LUNDBERG at URL below (note,fact shee ts are provided by method given in report:https:// [email or web address] [email or web address]/kyle t-communications/ Alternatively, see downloadable PDF fact sheet at:https://www. [employer]/COVID -19-RT-PCR UNLE SS OTHERWISE INDICATED, ALL TESTING PERFORMED [facility]. 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 [id number]
[2023-08-19] MEDS ORDERED: ONDANSETRON 4 MG/2 ML VIAL ONE (00:10)
[2023-08-19] MEDS ORDERED: KETOROLAC 30 MG/ML INJ ONE (00:10)
[2023-08-19] MEDS ORDERED: MORPHINE 2 MG/ML SYR ONE (00:10)
[2023-08-19] MEDS ORDERED: NA CHLORIDE 0.9% 1,000 ML ONE (00:11)
[2023-08-19 00:59] LABS: Absolute Lymphocytes (CBC) 1.8 K/uL (0.7-4.9); Hematocrit 35.5 % (36.0-45.0); MCV 87.5 fL (80-100); MPV 9.6 fL (7.6-11.3); Platelets 222 thou/uL (152-406); RBC Red Blood Cell Count 4.05 M/uL (3.86-4.86)
[2023-08-19 01:00] LABS: Specific Gravity > 1.030 (1.005-1.030)
[2023-08-19 01:10] LABS: Specific Gravity > 1.030 (1.005-1.030); Urine Bacteria None Seen /HPF (<20); Urine Bilirubin NEGATIVE (Negative); Urine Blood 1+ (Negative); Urine Clarity Clear (Clear); Urine Color Colorless (Yellow); Urine Glucose NEGATIVE (Negative); Urine Mucus Slight /HPF (None Seen); Urine Protein NEGATIVE (Negative); Urine Urobilinogen Normal (Normal); Urine pH 6.5 (5.0-7.0)
--- NOTE | 2023-08-19 01:22 | EDPHYS ---
Physician Documentation [facility] Name: Maida Tomlin Age: 38 yrs Sex: Female : 1985 Arrival Date: 08/18/2023 Time: 22:10 Bed 15 Private MD: SUSY Physician Randolph Zamarripa HPI: 08/19 00:12 This 38 yrs old Female presents to ER via Ambulatory with complaints of rayna Abdominal Pain, Vaginal Bleeding. 00:12 The patient presents with vaginal bleeding that is light. Onset: The symptoms/episode rayna began/occurred today, yesterday. Modifying factors: The symptoms are alleviated by nothing, the symptoms are aggravated by nothing. Associated signs and symptoms: The patient has no apparent associated signs or symptoms. Severity of symptoms: At their worst the symptoms were mild, moderate, in the emergency department the symptoms are unchanged. The patient is sexually active, reportedly has a single partner. The patient has experienced similar episodes in the past, several times. MANAGER VOICE: 08/18 22:38 4, Living 4, LMP 08/02/2023, unknown jj7 Historical: - Allergies: 22:38 No Known Allergies; jj7 - PMHx: 22:38 None; jj7 - PSHx: 22:38 tubal ligation; jj7 - Immunization history:: Adult Immunizations not immunized, Client reports having NOT received the Covid vaccine. - Social history:: Smoking status: Patient denies any tobacco usage or history of. Patient/guardian denies using alcohol, street drugs. - Family history:: not pertinent. ROS: 08/19 00:12 Constitutional: Negative for fever, chills, and weight loss, Eyes: Negative for injury, rayna pain, redness, and discharge, ENT: Negative for injury, pain, and discharge, Neck: Negative for injury, pain, and swelling, Cardiovascular: Negative for chest pain, palpitations, and edema, Respiratory: Negative for shortness of breath, cough, wheezing, and pleuritic chest pain, Abdomen/GI: Negative for abdominal pain, nausea, vomiting, diarrhea, and constipation, Back: Negative for injury and pain, : Negative for injury, bleeding, discharge, and swelling, MS/Extremity: Negative for injury and deformity, Skin: Negative for injury, rash, and discoloration, Neuro: Negative for headache, weakness, numbness, tingling, and seizure, Psych: Negative for depression, anxiety, suicide ideation, homicidal ideation, and hallucinations, Allergy/Immunology: Negative for hives, rash, and allergies, Endocrine: Negative for neck swelling, polydipsia, polyuria, polyphagia, and marked weight changes, Hematologic/Lymphatic: Negative for swollen nodes, abnormal bleeding, and unusual bruising, Exam: 00:12 Constitutional: This is a well developed, well nourished patient who is awake, alert, aryna and in no acute distress. Head/Face: Normocephalic, atraumatic. Eyes: Pupils equal round and reactive to light, extra-ocular motions intact. Lids and lashes normal. Conjunctiva and sclera are non-icteric and not injected. Cornea within normal limits. Periorbital areas with no swelling, redness, or edema. ENT: Nares patent. No nasal discharge, no septal abnormalities noted. Tympanic membranes are normal and external auditory canals are clear. Oropharynx with no redness, swelling, or masses, exudates, or evidence of obstruction, uvula midline. Mucous membranes moist. Neck: Trachea midline, no thyromegaly or masses palpated, and no cervical lymphadenopathy. Supple, full range of motion without nuchal rigidity, or vertebral point tenderness. No Meningismus. Chest/axilla: Normal chest wall appearance and motion. Nontender with no deformity. No lesions are appreciated. Cardiovascular: Regular rate and rhythm with a normal S1 and S2. No gallops, murmurs, or rubs. Normal PMI, no JVD. No pulse deficits. Respiratory: Lungs have equal breath sounds bilaterally, clear to auscultation and percussion. No rales, rhonchi or wheezes noted. No increased work of breathing, no retractions or nasal flaring. Back: No spinal tenderness. No costovertebral tenderness. Full range of motion. Female : Normal external genitalia. Skin: Warm, dry with normal turgor. Normal color with no rashes, no lesions, and no evidence of cellulitis. MS/ Extremity: Pulses equal, no cyanosis. Neurovascular intact. Full, normal range of motion. Neuro: Awake and alert, GCS 15, oriented to person, place, time, and situation. Cranial nerves II-XII grossly intact. Motor strength 5/5 in all extremities. Sensory grossly intact. Cerebellar exam normal. Normal gait. Psych: Awake, alert, with orientation to person, place and time. Behavior, mood, and affect are within normal limits. 00:12 Abdomen/GI: Inspection: abdomen appears normal, Bowel sounds: normal, Palpation: mild abdominal tenderness, in all quadrants, Liver: no appreciated palpable abnormalities, Hernia: not appreciated, Vital Signs: 08/18 22:34 BP 116 / 65; Pulse 70; Resp 18; Temp 98.3; Pulse Ox 100% ; Weight 68.04 kg; Height 5 jj7 ft. 0 in. ; Pain /; 08/19 00:21 BP 123 / 77; Pulse 55; Resp 16; Pulse Ox 98% ; bp 08/18 22:34 Body Mass Index 29.29 (68.04 kg, 152.4 cm) [facility] 08/18 22:34 Pain Scale: Adult jj7 MDM: 08/18 22:44 Patient medically screened. [facility] 08/19 00:15 Differential diagnosis: dysmenorrhea, kidney stone, menometrorrhagia, menorrhea, rayna nonspecific abdominal pain, ovarian cyst, uterine fibroids, urinary tract infection. Data reviewed: vital signs, nurses notes, lab test result(s), radiologic studies, CT scan, ultrasound. Consideration of Admission/Observation Patient was admitted/placed on observation. Escalation of care including admission/observation considered. I considered the following discharge prescriptions or medication management in the emergency department Medications were administered in the Emergency Department. See MAR. Independent interpretation of the following test(s) in the Emergency Department CT Scan: My interpretation is ct abd pelvis. Test considered but Not performed: EKG: . MRI: no mri pelvis. Historians other than the Patient: pt well informed. Care significantly affected by the following chronic conditions: Obesity, none. Counseling: I had a detailed discussion with the patient and/or guardian regarding the historical points, exam findings, and any diagnostic results supporting the discharge/admit diagnosis, lab results, radiology results, the need for outpatient follow up, for definitive care, an OB/Gyne specialist. 08/18 22:47 Order name: Abo/rh Typing [facility] 08/18 22:47 Order name: Basic Metabolic Panel; Complete Time: 01:20 [facility] 08/18 22:47 Order name: CBC with Diff; Complete Time: 01:20 [facility] 08/18 22:47 Order name: Test, Urine; Complete Time: 01:20 [facility] 08/18 22:47 Order name: Urinalysis w/ reflexes; Complete Time: 01:20 [facility] 08/18 22:47 Order name: US Transvaginal Study (Probe) [facility] 08/18 23:19 Order name: CT Abd/Pelvis - IV Contrast Only [facility] 08/18 22:47 Order name: IV Saline Lock; Complete Time: 00:10 [facility] 08/18 22:47 Order name: Labs collected and sent; Complete Time: 00:11 [facility] 08/18 22:47 Order name: NPO; Complete Time: 00:11 [facility] 08/19 01:21 Order name: PO challenge: juice; Complete Time: 01:51 [facility] Administered Medications: 08/18 23:30 Drug: NS 0.9% IV 1000 ml IV at 1 bolus Per protocol; 1000 mL bolus Route: IV; Rate: 1 bp bolus; Site: right forearm; 08/19 02:25 Follow up: IV Status: Completed infusion; IV Intake: 1000ml bp 08/18 23:30 Drug: Ketorolac IVP 30 mg IVP once Route: IVP; Site: right forearm; bp 08/19 02:25 Follow up: Response: No adverse reaction bp 08/18 23:30 Drug: morphine IVP or IV 2 mg IVP once over 4 mins Route: IVP; Infused Over: 4 mins; bp Site: right forearm; 08/19 02:25 Follow up: Response: No adverse reaction bp 08/18 23:30 Drug: Ondansetron IVP 2 mg IVP once; over 2 minutes Route: IVP; Site: right forearm; bp 08/19 02:25 Follow up: Response: No adverse reaction bp 01:45 Drug: Potassium PO Effervescent Tablet 50 mEq PO once; dissolve in 4 ounces of water or bp juice Route: PO; 02:17 Follow up: Response: No adverse reaction bp Disposition Summary: 08/19/23 01:21 Discharge Ordered Notes: Location: Home rayna Problem: new rayna Symptoms: have improved rayna Condition: Stable rayna Diagnosis - Abdominal tenderness rayna - Other ovarian cysts rayna - Hypokalemia rayna Followup: rayna - With: Private Physician - When: 2 - 3 days - Reason: Recheck today's complaints, Continuance of care, Re-evaluation by your physician Followup: rayna - With: Sary Cm MD - When: 2 - 3 days - Reason: Recheck today's complaints, Re-evaluation by your physician Discharge Instructions: - Discharge Summary Sheet rayna - Abdominal Pain, Adult rayna - Potassium Content of Foods rayna - Ovarian Cyst rayna - Abdominal Pain, Adult, [id number] rayna - Ovarian Cyst, [id number] rayna - Hypokalemia [facility] Forms: - Medication Reconciliation Form rayna - Thank You Letter rayna - Antibiotic Education rayna - Prescription Opioid Use rayna - Patient Portal Instructions rayna - Leadership Thank You Letter rayna - Work release form bp Prescriptions: - Naprosyn 500 mg Oral tablet - take 1 tablet ORAL route 2 times per day take with food; 20 tablet; Refills: 0, [facility] Product Selection Permitted - Zofran 4 mg Oral Tablet - take 1 tablet ORAL route every 12 hours As needed; 20 tablet; Refills: 0, [facility] Product Selection Permitted - dicyclomine 20 mg Oral tablet - take 1 tablet ORAL route 4 times per day; 28 tablet; Refills: 0, Product [facility] Selection Permitted Signatures: Dispatcher [employer] Randolph Duran MD MD cha Peltier, Brian, RN RN Zhanna Bright RN RN jj7
--- NOTE | 2023-08-19 01:22 | ER ---
Nurse's Notes [facility] Name: Maida Tomlin Age: 38 yrs Sex: Female : 1985 Arrival Date: 08/18/2023 Time: 22:10 Bed 15 Private MD: Diagnosis: Abdominal tenderness;Other ovarian cysts;Hypokalemia Presentation: 08/18 22:34 Chief complaint: Patient states: WAS DX WITH RUPTURED OVARIAN CYST ON TUEDAY. SEND HOME jj7 ON DICLOFENAC. STATES NOW SHE IS HAVING VAGINAL BLEEDING AND RLQ PAIN. STATES THE PAIN MEDS DIDN'T WORK. Coronavirus screen: At this time, the client does not indicate any symptoms associated with coronavirus-19. Ebola Screen: No symptoms or risks identified at this time. Initial Sepsis Screen: Does the patient meet any 2 criteria? No. Patient's initial sepsis screen is negative. Does the patient have a suspected source of infection? No. Patient's initial sepsis screen is negative. Risk Assessment: Do you want to hurt yourself or someone else? Patient reports no desire to harm self or others. Onset of symptoms was August 18, 2023. 22:34 Method Of Arrival: Ambulatory [facility] 22:34 Acuity: SARKIS 3 jj7 Triage Assessment: 22:38 General: Appears in no apparent distress. uncomfortable, Behavior is calm, cooperative, jj7 appropriate for age. Pain: Complains of pain in right lower quadrant. GI: No deficits noted. CORRESPONDENCE DICTATOR: 22:38 4, Living 4, LMP 08/02/2023, unknown [facility] Historical: - Allergies: 22:38 No Known Allergies; jj7 - PMHx: 22:38 None; jj7 - PSHx: 22:38 tubal ligation; jj7 - Immunization history:: Adult Immunizations not immunized, Client reports having NOT received the Covid vaccine. - Social history:: Smoking status: Patient denies any tobacco usage or history of. Patient/guardian denies using alcohol, street drugs. - Family history:: not pertinent. Screenin/17 00:21 [facility] ED Fall Risk Assessment (Adult) History of falling in the last 3 months, bp including since admission. Abuse screen: Denies threats or abuse. Denies injuries from another. Nutritional screening: No deficits noted. Tuberculosis screening: No symptoms or risk factors identified. Assessment: 00:21 Reassessment: PT TO CT. bp Vital Signs: 08/18 22:34 BP 116 / 65; Pulse 70; Resp 18; Temp 98.3; Pulse Ox 100% ; Weight 68.04 kg; Height 5 jj7 ft. 0 in. ; Pain 8/10; 08/19 00:21 BP 123 / 77; Pulse 55; Resp 16; Pulse Ox 98% ; bp 08/18 22:34 Body Mass Index 29.29 (68.04 kg, 152.4 cm) 7 08/18 22:34 Pain Scale: Adult 7 ED Course: 08/18 22:13 Patient arrived in ED. jj6 22:38 Triage completed. jj7 22:38 Arm band placed on right wrist. jj7 22:44 Randolph Zamarripa MD is Attending Physician. rayna 23:16 Sagar Simon, RN is Primary Nurse. bp 23:35 US Transvaginal Study (Probe) In Process Unspecified. EDMS 08/19 00:10 Inserted saline lock: 22 gauge in right forearm, using aseptic technique. Blood bp collected. 00:21 Patient has correct armband on for positive identification. Bed in low position. Call bp light in reach. Side rails up X2. 00:41 CT Abd/Pelvis - IV Contrast Only In Process Unspecified. EDMS 01:21 Sary Cm MD is Referral Physician. rayna 02:25 No provider procedures requiring assistance completed. IV discontinued, intact, bp bleeding controlled, No redness/swelling at site. Pressure dressing applied. Administered Medications: 08/18 23:30 Drug: NS 0.9% IV 1000 ml IV at 1 bolus Per protocol; 1000 mL bolus Route: IV; Rate: 1 bp bolus; Site: right forearm; 08/19 02:25 Follow up: IV Status: Completed infusion; IV Intake: 1000ml bp 08/18 23:30 Drug: Ketorolac IVP 30 mg IVP once Route: IVP; Site: right forearm; bp 08/19 02:25 Follow up: Response: No adverse reaction bp 08/18 23:30 Drug: morphine IVP or IV 2 mg IVP once over 4 mins Route: IVP; Infused Over: 4 mins; bp Site: right forearm; 08/19 02:25 Follow up: Response: No adverse reaction bp 08/18 23:30 Drug: Ondansetron IVP 2 mg IVP once; over 2 minutes Route: IVP; Site: right forearm; bp 08/19 02:25 Follow up: Response: No adverse reaction bp 01:45 Drug: Potassium PO Effervescent Tablet 50 mEq PO once; dissolve in 4 ounces of water or bp juice Route: PO; 02:17 Follow up: Response: No adverse reaction bp Intake: 02:25 IV: 1000ml; Total: 1000ml. bp Outcome: 01:21 Discharge ordered by MD. way 02:25 Discharged to home ambulatory, bp 02:25 Condition: stable 02:25 Discharge instructions given to patient, Instructed on discharge instructions, follow up and referral plans. medication usage, Demonstrated understanding of instructions, follow-up care, medications, Prescriptions given X 3, 02:26 Patient left the ED. bp Signatures: Dispatcher [employer] EDMS Randolph Zamarripa MD MD cha Peltier, Brian RN RN Luna Louis jj6 Zhanna Anthony RN RN jj7
[2023-08-19] MEDS ORDERED: POTASSIUM 25 MEQ EFFERV TAB ONE (01:48)
[2023-08-19 02:30] VITALS: TEMP 98.3
[2023-08-19 02:31] VITALS: BP 123/77; O2SAT 98
--- NOTE | 2023-08-19 14:16 | RAD REPORT ---
EXAM DESCRIPTION: US Pelvis Transvaginal CLINICAL HISTORY: ABD PAIN TECHNIQUE: Real-time transvaginal pelvic ultrasound with image documentation. Transvaginal imaging was used for better evaluation of the endometrium and adnexa. COMPARISON: Abdomen pelvis CT dated 08/19/2023 FINDINGS: Uterus/cervix: The uterus is anteverted and measures 7.8 x 4.2 x 4.4 cm. The endometri al stripe measures 5 mm in thickness. No myometrial mass. Right ovary: The right ovary measures 2.6 x 2.2 x 1.9 cm. Normal blood flow. Left ovary: The left ovary measures 2.4 x 1.4 x 2.1 cm. Normal blood flow. Free fluid: No free fluid. Bladder: Empty bladder which cannot be evaluated with this probe. IMPRESSION: No acute abnormality. Electronically signed by: Darwin Lazaro MD 08/19/2023 12:43 AM CDT Due to temporary technical issues with the PACS/Fluency reporting system, reports are being signed by the in house radiologists without review as a courtesy to insure prompt reporting. The interpreting radiologist is fully responsible for the content of the report.
--- NOTE | 2023-08-19 14:23 | RAD REPORT ---
EXAM DESCRIPTION: CT Abdomen and Pelvis With Intravenous Contrast CLINICAL HISTORY: The patient is 38 years old and is Female; ABD PAIN TECHNIQUE: Axial computed tomography images of the abdomen and pelvis with intravenous contrast. S agittal and coronal reformatted images were created and reviewed. This CT exam was performed using one or more of the following dose reduction techniques: automated exposure control, adjustment of t he mA and/or kV according to patient size, and/or use of iterative reconstruction technique. COMPARISON: No relevant prior studies available. FINDINGS: Lung bases: Unremarkable. No mass. No consolidation. ABDOMEN: Liver: Unremarkable. No mass. Gallbladder and bile ducts: Unremarkable. No calcified stones. No ductal dilation. Pancreas: Unremarkable. No mass. No ductal dilation. Spleen: Unremarkable. No splenomegaly. Adrenals: Unremarkable. No mass. Kidneys and ureters: Unremarkable. No solid mass. No hydronephrosis. Stomach and bowel: Scattered colonic diverticula. No obstruction. No mucosal thickening. PELVIS: Appendix: The appendix is normal. Bladder: Unremarkable. Reproductive: 1.9 cm simple right ovarian/adnexal cyst. No follow-up imaging is recommended. ABDOMEN and PELVIS: Intraperitoneal space: Unremarkable. No free air. No significant fluid collection. Bones/joints: No acute fracture. No dislocation. Soft tissues: Unremarkable. Vasculature: Unremarkable. No abdominal aortic aneurysm. Lymph nodes: Unremarkable. No enlarged lymph nodes. IMPRESSION: No acute finding in the abdomen/pelvis. Electronically signed by: Sammy Mckinney MD 08/19/2023 12:47 AM CDT Due to temporary technical issues with the PACS/Fluency reporting system, reports are being signed by the in house radiologists without review as a courtesy to insure prompt reporting. The interpreting radiologist is fully responsible for the content of the report.
== END 2023-08-19 02:26 | disposition home or self-care (01) ==
LOC: ER 22:10
DX: N83.299 Other ovarian cyst, unspecified side (principal); E87.6 Hypokalemia
CPT/HCPCS: 36415; 74177; 76830; 80048; 81001; 81025; 85025; 86900; 86901; 96361; 96374; 96375; 99284; Q9967

== ENCOUNTER 2024-05-09 05:31 | Emergency (ER) | payer SELFPAY ==
--- OUTSIDE RECORDS SUMMARY | 2024-05-09 05:34 | XMS REPORT | Continuity of Care Document ---
Author Name Unknown Address [address] [place] [address] [facility] Address [address] [place] [address] Care Team Providers Care Slot Floor Attendant Name Role Phone Analilia Stevens Primary Care Physician Lilian Johnson Attending Clinician [phone] ANNE BRADLEY Attending Clinician Unavail able FABIANO PÉREZ Attending Clinician Unavailable Pgy2 Attending Clinician Unavailable Fabiano Pérez MD Attending Clinician [phone] [facility]ending [facility] Unava ilJohnna Diane CNM Attending Clinician [phone] JOHNNA KINGSTON Attending Clinician Unavaila ble Anne Manriquez Attending Clinician + Lab, Jason Attending Clinician Unavailable Doctor Unassigned, [place] Attending Clinician U ARTIS Massey Attending Clinician Unavailab ESTHELA Hidalgo Attending Clinician Unavailab Steven Abernathy Attending Clinician [phone] Esthela Huggins MD Attending Clinician [phone] BROOK CALHOUN Attending Clinician UnavailBrook Felton MD Attending Clinician [phone] Na Rubio CNM Attending Clinician [phone] Payers Payer Name Policy Type Policy Number Effective Date Expirati on Date Source [place] [employer] [id number] 2022 00:00:00 Problems Condition Name Condition Details Condition Category Status Onset Date Resolution Date Last Treatment Date Treating Clinician Comments Source History of tubal ligation History of tubal ligation Disease Active 01-23 00:00: 00 [facility] Atypical squamous cell changes of undetermin ed significan ce (ASCUS) on cervical cytology with positive high risk human papilloma virus (HPV) Atypical squamous cell changes of undetermin ed significan ce (ASCUS) on cervical cytology with positive high risk human papilloma virus (HPV) Disease Active 2018-11 00:00: 00 Overview: Formattin g of this note might be different from the original. 11/11/2019- colpo done [facility] Atypical squamous cell changes of undetermin ed significan ce (ASCUS) on cervical cytology with positive high risk human papilloma virus (HPV) Atypical squamous cell changes of undetermin ed significan ce (ASCUS) on cervical cytology with positive high risk human papilloma virus (HPV) Disease Active 2018-11 00:00: 00 Overview: 11/11/2019- colpo done [facility] Other general counseling and advice for contracept marian management Other general counseling and advice for contracept marian management Disease Active 2018-11 00:00: 00 [facility] Obesity (BMI 30-39.9) Obesity (BMI 30-39.9) Disease Active 2018-11 00:00: 00 [facility] Allergies, Adverse Reactions, Alerts Allergy Name Allergy Type Status Severity Reaction(s) Onset Date Inactive Date Treating Clinician Comments Source NO KNOWN ALLERGIE S Drug Class Active [facility] Social History Social Habit Start Date Stop Date Quantity Comments Source [facility] intake 2023-09-02 00:00:00 2023-09-02 00:00:00 Ex-drinker (finding) [facility] Alcoholic beverage intake 2023-09-02 00:00:00 2023-09-02 00:00:00 Ex-drinker (finding) [facility] Tobacco use and exposure 2023-09-02 00:00:00 2023-09-02 00:00:00 Smokeless tobacco non-user [facility] Exposure to SARS-CoV-2 (event) 2023-03-16 00:00:00 2023-03-26 08:29:00 Not sure [facility] History of Social function 2023-01-23 00:00:00 2023-01-23 00:00:00 [facility] Sex assigned at 1985 00:00:00 1985 00:00:00 [facility] Smoking Status Start Date Stop Date Source Never smoked tobacco [facility] Medications Ordered Medication Name Filled Medication Name Start Date Stop Date Current Medication? Ordering Clinician Indication Dosage Frequency Signature (SIG) Comments Components Source fluconazole 150 mg tablet 04-28 00:00: 00 Yes 1mg Juliano Rosario TAKE ONE (1) TABLET(S) BY MOUTH EVERY MORNING. 2022-11 00:00: 00 Yes Juliano Rosario norethindro ne-ethinyl estradiol (LOESTRIN 1/20, 21,) 1-20 mg-mcg per tablet 2022-11 00:00: 00 Yes [id number] 1{tbl} Take 1 tablet by mouth in the morning. [facility] TAKE ONE (1) TABLET(S) BY MOUTH TWICE A DAY. 2022-11 00:00: 00 Yes Juliano Rosario TAKE ONE (1) TABLET(S) BY MOUTH EVERY SIX TO EIGHT HOURS NEEDED FOR NAUSEA AND VOMITING. 2022-11 00:00: 00 Yes Juliano Rosario TAKE ONE (1) TABLET BY MOUTH ONCE NOW FOR 1 DOSE. 01-27 00:00: 00 Yes Juliano Rosario fluconazole (DIFLUCAN) 150 mg tablet 01-27 00:00: 00 01-28 04:59 :00 No [id number] 150mg Take 1 tablet by mouth once now for 1 dose. [facility] TAKE ONE (1) TABLET(S) BY MOUTH EVERY EIGHT HOURS NEEDED FOR PAIN. 12-29 00:00: 00 Yes Juliano Rosario TAKE TWO (2) CAPSULE(S) BY MOUTH EVERY EIGHT HOURS NEEDED FOR COUGH AND CONGESTION. 12-29 00:00: 00 Yes Juliano Rosario INHALE ONE (1) OR TWO (2) PO BY MOUTH EVERY FOUR TO SIX HOURS. 07-29 00:00: 00 Yes Juliano Rosario INHALE ONE (1) VIAL VIA NEBULIZER EVERY 4 TO 6 HOURS. 07-29 00:00: 00 Yes Juliano Rosario TAKE TEN (10) ML(S) BY MOUTH EVERY FOUR TO SIX HOURS NEEDED FOR COUGH. 07-29 00:00: 00 Yes Juliano Rosario HYDROCORTIS ONE-HYDROQU INONE-TRETI NOIN 1-4-0.025 % TOPICAL CREAM 05-11 00:00: 00 Yes [id number] Apply to area(s) at bedtime. [facility] HYDROCORTIS ONE-HYDROQU INONE-TRETI NOIN 1-4-0.025 % TOPICAL CREAM 05-11 00:00: 00 Yes [id number] Apply to area(s) at bedtime. [facility] diclofenac 75 mg EC tablet 12-27 00:00: 00 01-26 04:59 :00 No [id number] 75mg Take 1 tablet by mouth 2 (two) times daily with meals for 30 days. [facility] amoxicillin 875 mg-potassiu m clavulanate 125 mg tablet 12-08 00:00: 00 Yes 1mg Juliano Rosario Bromfed DM 2 mg-30 mg-10 mg/5 mL oral syrup 12-08 00:00: 00 Yes 10mg/5 mL Juliano Rosario multivitami n tablet 11-11 00:00: 00 11-11 05:59 :00 No [id number] 1{tbl} Take 1 tablet by mouth daily. [facility] multivitami n tablet 11-11 00:00: 00 11-11 05:59 :00 No [id number] 1{tbl} Take 1 tablet by mouth daily. [facility] VIOS Josie 2018-11 00:00: [address] [facility]00: 00 Yes [facility] VIOS Josie 2018-11 00:00: 00 Yes [facility] ipratropium 0.5 mg-albutero l 3 mg (2.5 mg base)/3 mL nebulizatio n soln 2018-11 00:00: 00 Yes 1mg base)/3 mL Juliano Bess Rosario Dose Unknown 2018-11 00:00: 00 Yes Juliano Bess Rosario metronidazo le 0.75 % vaginal gel 05-10 00:00: 00 Yes 1% Juliano Rosario metronidazo le 500 mg tablet 04-13 00:00: 00 Yes 1mg Juliano Bess Rosario Immunizations Ordered Immunization Name Filled Immunization Name Date Status Comments Source HPV9 2023-03-26 00:00:00 Completed [facility] HPV9 2023-01-23 00:00:00 Completed [facility] HPV9 2023-01-23 00:00:00 Completed [facility] HPV9 2023-01-23 00:00:00 Completed [facility] HPV9 2023-01-23 00:00:00 Completed [facility] HPV9 2023-01-23 00:00:00 Completed [facility] HPV9 2023-01-23 00:00:00 Completed [facility] HPV9 2023-01-23 00:00:00 Completed [facility] HPV9 2023-01-23 00:00:00 Completed [facility] HPV9 2023-01-23 00:00:00 Completed [facility] TDAP 2021-10-24 00:00:00 Completed [facility] TDAP 2021-10-24 00:00:00 Completed [facility] TDAP 2021-10-24 00:00:00 Completed [facility] TDAP 2021-10-24 00:00:00 Completed [facility] TDAP 2021-10-24 00:00:00 Completed [facility] TDAP 2021-10-24 00:00:00 Completed [facility] TDAP 2021-10-24 00:00:00 Completed [facility] TDAP 2021-10-24 00:00:00 Completed [facility] TDAP 2021-10-24 00:00:00 Completed [facility] TDAP Unknown Completed [facility] HPV9 Unknown Completed [facility] HPV9 Unknown Completed [facility] HPV9 Unknown Completed [facility] TDAP Unknown Completed [facility] HPV9 Unknown Completed [facility] HPV9 Unknown Completed [facility] HPV9 Unknown Completed [facility] TDAP Unknown Completed [facility] HPV9 Unknown Completed [facility] HPV9 Unknown Completed [facility] HPV9 Unknown Completed [facility] TDAP Unknown Completed [facility] HPV9 Unknown Completed [facility] HPV9 Unknown Completed [facility] HPV9 Unknown Completed [facility] TDAP Unknown Completed [facility] HPV9 Unknown Completed [facility] HPV9 Unknown Completed [facility] HPV9 Unknown Completed [facility] TDAP Unknown Completed [facility] HPV9 Unknown Completed [facility] HPV9 Unknown Completed [facility] HPV9 Unknown Completed [facility] TDAP Unknown Completed [facility] HPV9 Unknown Completed [facility] HPV9 Unknown Completed [facility] HPV9 Unknown Completed [facility] TDAP Unknown Completed [facility] HPV9 Unknown Completed [facility] HPV9 Unknown Completed [facility] HPV9 Unknown Completed [facility] TDAP Unknown Completed [facility] HPV9 Unknown Completed [facility] HPV9 Unknown Completed [facility] HPV9 Unknown Completed [facility] Vital Signs Vital Name Observation Time Observation Value Comments S ource Systolic blood pressure 2023-09-02 18:39:00 113 mm[Hg] [facility] Diastolic blood pressure 2023-09-02 18:39:00 71 mm[Hg] [facility] Heart rate 2023-09-02 18:39:00 78 /min [facility] Body temperature 2023-09-02 18:39:00 36.44 Diane [facility] Respiratory rate 2023-09-02 18:39:00 19 /min [facility] Body height 2023-09-02 18:39:00 162.6 cm [facility] Body weight 2023-09-02 18:39:00 70.988 kg [facility] BMI 2023-09-02 18:39:00 26.86 kg/m2 [facility] Body temperature 2023-07-28 14:55:00 36.44 Diane [facility] Body temperature 2023-03-26 13:32:00 36.28 Diane [facility] Respiratory rate 2023-03-26 13:32:00 20 /min [facility] Body weight 2023-03-26 13:32:00 78.064 [facility] BMI 2023-03-26 13:32:00 33.61 kg/m2 [facility] Systolic blood pressure 2023-01-23 21:39:00 117 mm[Hg] [facility] Diastolic blood pressure 2023-01-23 21:39:00 73 mm[Hg] [facility] Heart rate 2023-01-23 21:39:00 87 /min Unive [facility] Body temperature 2023-01-23 21:39:00 35.83 Diane [facility] Respiratory rate 2023-01-23 21:39:00 18 /min [facility] Body height 2023-01-23 21:39:00 152.4 cm [facility] Body weight 2023-01-23 21:39:00 77.338 kg [facility] BMI 2023-01-23 21:39:00 33.30 kg/m2 [facility] Systolic blood pressure 2020-08-03 13:35:00 98 mm[Hg] [facility] Diastolic blood pressure 2020-08-03 13:35:00 62 mm[Hg] [facility] Heart rate 2020-08-03 13:35:00 67 /min Unive [facility] Body temperature 2020-08-03 13:35:00 36.78 Diane [facility] Respiratory rate 2020-08-03 13:35:00 16 /min [facility] Body height 2020-08-03 13:35:00 154.9 cm [facility] Body weight 2020-08-03 13:35:00 74.844 kg [facility] BMI 2020-08-03 13:35:00 31.18 kg/m2 [facility] Systolic blood pressure 2020-08-03 13:35:00 98 mm[Hg] [facility] Diastolic blood pressure 2020-08-03 13:35:00 62 mm[Hg] [facility] o [facility] Heart rate 2020-08-03 13:35:00 67 /min Unive [facility] Body temperature 2020-08-03 13:35:00 36.78 Diane [facility] Respiratory rate 2020-08-03 13:35:00 16 /min [facility] Body height 2020-08-03 13:35:00 154.9 cm [facility] Body weight 2020-08-03 13:35:00 74.844 kg [facility] BMI 2020-08-03 13:35:00 31.18 kg/m2 [facility] Systolic blood pressure 2019-12-27 19:56:00 112 mm[Hg] [facility] Diastolic blood pressure 2019-12-27 19:56:00 63 mm[Hg] [facility] Heart rate 2019-12-27 19:56:00 88 /min [facility] Body height 2019-12-27 19:56:00 154.9 cm [facility] Body weight 2019-12-27 19:56:00 74.844 kg [facility] BMI 2019-12-27 19:56:00 31.18 kg/m2 [facility] Heart Rate 2024-04-28 10:25:00 81.00 /min Marsha en F Abraham Respiratory Rate 2024-04-28 10:25:00 16.00 /min Juliano F Abraham BP Systolic 2024-04-28 10:25:00 114 mm[Hg] Step hen F Abraham BP Diastolic 2024-04-28 10:25:00 70 mm[Hg] Ariel phen F Abraham Weight Measured 2024-04-28 10:25:00 158.80 pounds Juliano F Abraham Height Measured 2024-04-28 10:25:00 61.50 inches Juliano F Abraham Body Temperature 2024-04-28 10:25:00 98.20 degrees [place] F Abraham BP Systolic 2022-07-29 14:38:00 120 mm[Hg] Step hen F Abraham BP Diastolic 2022-07-29 14:38:00 74 mm[Hg] Ariel phen F Abraham Weight Measured 2022-07-29 14:38:00 172.20 pounds Juliano F Abraham Height Measured 2022-07-29 14:38:00 61.50 inches Juliano F Abraham Body Temperature 2022-07-29 14:38:00 97.80 degrees Juliano F Abraham Heart Rate 2022-07-29 14:38:00 97.00 /min Marsha en F Abraham Respiratory Rate 2022-07-29 14:38:00 24.00 /min Juliano F Abraham BP Systolic 2019-12-22 16:17:00 107 mm[Hg] Step hen F Abraham BP Diastolic 2019-12-22 16:17:00 71 mm[Hg] Ariel phen F Abraham Weight Measured 2019-12-22 16:17:00 167.60 pounds Juliano F Abraham Height Measured 2019-12-22 16:17:00 61.50 inches Juliano F Abraham Body Temperature 2019-12-22 16:17:00 98.90 degrees Juliano F Abraham Heart Rate 2019-12-22 16:17:00 89.00 /min Marsha en F Abraham Respiratory Rate 2019-12-22 16:17:00 16.00 /min Juliano F Abraham BP Systolic 2019-12-08 08:27:00 106 mm[Hg] Step hen F Abraham BP Diastolic 2019-12-08 08:27:00 73 mm[Hg] Ariel phen F Abraham Weight Measured 2019-12-08 08:27:00 163.60 pounds Juliano F Abraham Height Measured 2019-12-08 08:27:00 61.50 inches Juliano F Abraham Body Temperature 2019-12-08 08:27:00 99.10 degrees Juliano F Abraham Heart Rate 2019-12-08 08:27:00 79.00 /min Marsha en F Abraham Respiratory Rate 2019-12-08 08:27:00 16.00 /min Juliano F Abraham BP Systolic 2019-09-20 16:58:00 118 mm[Hg] Step hen F Abraham BP Diastolic 2019-09-20 16:58:00 75 mm[Hg] Ariel phen F Abraham Weight Measured 2019-09-20 16:58:00 165.00 pounds Juliano F Abraham Height Measured 2019-09-20 16:58:00 61.50 inches Juliano F Abraham Body Temperature 2019-09-20 16:58:00 97.90 degrees Juliano F Abraham Heart Rate 2019-09-20 16:58:00 71.00 /min Marsha en F Abraham Respiratory Rate 2019-09-20 16:58:00 17.00 /min Juliano F Abraham BP Systolic 2019-05-10 11:51:00 109 mm[Hg] Step hen F Abraham BP Diastolic 2019-05-10 11:51:00 60 mm[Hg] Ariel phen F Abraham Weight Measured 2019-05-10 11:51:00 160.00 pounds Juliano F Abraham Height Measured 2019-05-10 11:51:00 61.50 inches Juliano F Abraham Body Temperature 2019-05-10 11:51:00 98.30 degrees Juliano F Abraham Heart Rate 2019-05-10 11:51:00 88.00 /min Marsha en F Abraham Respiratory Rate 2019-05-10 11:51:00 17.00 /min Julaino F Abraham BP Systolic 2019-04-13 14:52:00 102 mm[Hg] Step hen F Abraham BP Diastolic 2019-04-13 14:52:00 72 mm[Hg] Ariel phen F Abraham Weight Measured 2019-04-13 14:52:00 160.40 pounds Juliano F Abraham Height Measured 2019-04-13 14:52:00 61.50 inches Juliano F Abraham Body Temperature 2019-04-13 14:52:00 99.40 degrees Juliano F Abraham Heart Rate 2019-04-13 14:52:00 69.00 /min Marsha en F Abraham Respiratory Rate 2019-04-13 14:52:00 16.00 /min Juliano F Abraham Procedures Procedure Date / Time Performed Performing Clinicia n Source GARDASIL 9 (HPV 9V) VACCINE 2023-07-28 14:55:44 [facility] GARDASIL 9 (HPV 9V) VACCINE 2023-03-26 13:40:57 [facility] PAP SMEAR-LIQUID BASED-CP 2023-01-23 21:43:00 [facility] GARDASIL 9 (HPV 9V) VACCINE 2023-01-23 21:31:18 [facility] CONSENT/REFUSAL FOR DIAGNOSIS AND TREATMENT 2023-01-23 21:16:34 Doctor Unassigned, [place] [facility] REFERRAL- REQUEST/RESPONSE 2019-12-22 06:01:00 Doctor Unassigned, [place] [facility] Encounters Start Date/Time End Date/Time Encounter Type Admission Type Attending [facility] Care Facility Care Department Encounter ID Source 2024-04-28 10:15:50 2024-04-28 10:15:50 Outpatient SFA [facility] [id number] Juliano Rosario 2024-04-28 00:00:00 2024-04-28 00:00:00 Outpatient Visit [facility] [id number] Juliano Rosario 2024-04-26 15:42:42 2024-04-26 15:42:42 Outpatient SFA [facility] [id number] Juliano Rosario 2024-04-01 00:00:00 2024-04-01 13:35:15 Telephone [facility] [id number] 350.1.13.10 4.2.7.2.686 [id number] [facility] 2024-02-18 16:24:57 2024-02-18 16:24:57 Outpatient S[facility] [id number] Juliano Rosario 2024-01-26 13:30:00 2024-01-26 13:30:00 Outpatient R ANNE BRADLEY [facility] [id number] [facility] 2023-12-03 13:30:00 2023-12-03 13:30:00 Outpatient R [facility] [id number] [facility] 2023-09-02 13:30:00 2023-09-02 14:56:03 Outpatient R FABIANO PÉREZ [facility] [id number] [facility] 2023-09-02 13:30:00 2023-09-02 14:56:03 Office Visit Pgy2 Fabiano Pérez [facility] [id number] 350.1.13.10 4.2.7.2.686 [id number] [facility] 2023-08-26 00:00:00 2023-08-26 00:00:00 Telephone [facility] 1.20.114 350.1.13.10 4.2.7.2.686 [id number] [facility] 2023-08-19 00:00:00 2023-08-19 00:00:00 Telephone [facility] 1..114 350.1.13.10 4.2.7.2.686 [id number] [facility] 2023-07-28 10:00:00 2023-07-28 10:15:00 Nurse Visit Visit, [facility] Nurse Johnna Kingston [facility] 1.84.114 350.1.13.10 4.2.7.2.686 [id number] [facility] 2023-07-28 10:00:00 2023-07-28 09:59:01 Outpatient R JOHNNA KINGSTON [facility] [id number] [facility] 2023-07-28 00:00:00 2023-07-28 00:00:00 Telephone Johnna Kingston [facility] 1.84.114 350.1.13.10 4.2.7.2.686 [id number] [facility] 2023-03-26 10:30:00 2023-03-26 10:30:00 Outpatient JOHNNA REGALADO [facility] [id number] [facility] 2023-03-26 08:30:00 2023-03-26 08:45:00 Nurse Visit Visit, [facility] Johnna Macdonald [facility] [id number] 350.1.13.10 4.2.7.2.686 [id number] [facility] 2023-03-26 08:30:00 2023-03-26 08:30:00 Outpatient JOHNNA REGALADO [facility] [id number] [facility] 2023-02-04 00:00:00 2023-02-04 00:00:00 Telephone Anne Bradley [facility] 1..840.114 350.1.13.10 4.2.7.2.686 [id number] [facility] 2023-02-04 00:00:00 2023-02-04 00:00:00 Telephone Anne Bradley [facility] [id number] 350.1.13.10 4.2.7.2.686 [id number] [facility] 2023-01-30 08:30:00 2023-01-30 08:45:00 Grants Director Visit Lab, [facility] Anne Bradley [facility] .840.114 350.1.13.10 4.2.7.2.686 [id number] [facility] 2023-01-30 08:30:00 2023-01-30 08:30:00 Outpatient ANNE ALEX [facility] [id number] [facility] 2023-01-27 00:00:00 2023-01-27 00:00:00 Telephone Anne Bradley [facility] 1..114 350.1.13.10 4.2.7.2.686 [id number] [facility] 2023-01-23 15:45:00 2023-01-23 16:40:06 Outpatient R ANNE BRADLEY [facility] [id number] [facility] 2023-01-23 15:45:00 2023-01-23 16:40:06 Office Visit Anne Bradley [facility] 1..114 350.1.13.10 4.2.7.2.686 [id number] [facility] 2023-01-23 00:00:00 2023-01-23 00:00:00 Orders Only Doctor Unassigned, [place] [facility] 1..114 350.1.13.10 4.2.7.2.686 [id number] [facility] 2020-11-21 10:45:00 2020-11-21 10:45:00 Outpatient ARTIS MATTHEWS [facility] [id number] [facility] 2020-11-13 15:00:00 2020-11-13 15:00:00 Outpatient ARTIS MATTHEWS [facility] [id number] [facility] 2020-08-03 09:00:00 2020-08-03 09:00:00 Outpatient R ANNE BRADLEY [facility] [id number] [facility] 2020-08-03 08:23:11 2020-08-03 08:59:25 Office Visit Anne Bradley [facility] 1..114 350.1.13.10 4.2.7.2.686 [id number] [facility] 2020-08-03 08:23:11 2020-08-03 08:59:25 Office Visit Anne Bradley [facility] [id number] 350.1.13.10 4.2.7.2.686 [id number] 2020-05-18 16:45:00 2020-05-18 16:45:00 Outpatient ESTHELA FABIAN [facility] [id number] [facility] 2020-05-11 10:15:00 2020-05-11 10:15:00 Outpatient ESTHELA FABIAN [facility] [id number] [facility] 2020-05-11 09:55:33 2020-05-11 10:10:33 Office Visit Steven Torres Janice May [facility] 1.84.114 350.1.13.10 4.2.7.2.686 [id number] [facility] 2020-01-17 16:15:00 2020-01-17 16:15:00 Outpatient R BROOK CALHOUN [facility] [id number] [facility] 2019-12-27 13:52:41 2019-12-27 14:14:45 Office Visit Brook Calhoun [facility]..840.114 350.1.13.10 4.2.7.2.686 [id number] [facility] 2019-12-27 13:45:00 2019-12-27 13:45:00 Outpatient R BROOK CALHOUN [facility] [id number] [facility] 2019-12-27 00:00:00 2019-12-27 00:00:00 Letter (Out) Brook Calhoun [facility] [facility] [id number] 350.1.13.10 4.2.7.2.686 [id number] [facility] 2019-12-22 00:00:00 2019-12-22 00:00:00 Orders Only Doctor Unassigned, [place] [facility] 1.840.114 350.1.13.10 4.2.7.2.686 [id number] [facility] 2019-11-15 00:00:00 2019-11-15 00:00:00 Telephone Na Rubio [facility] 1.840.114 350.1.13.10 4.2.7.2.686 [id number] [facility] Results Test Description Test Time Test Comments Results Result Co mments Source SARS-CoV-2 (COVID-19), RT-PCR/[id number] 10:45:46* Test Item Value Reference Range Interpretation Comments SARS-CoV-2 INTERPRETATION (test code = 72165) NEGATIVE SEE NOTE SARS-CoV-2 R NA NOT DETECTEDNegative results do not preclude SARS-CoV-2 infection and should notbe used as the sole basis for patient management decisions. Negativeresults must be combined with clinical observations, patient history,and epidemiological information. Optimum specimen types and timingfor peak viral levels during infections caused by SARS-CoV-2 have notbeen determined. Collection of multiple specimens or types ofspecimens may be necessary to detect virus. Improper specimencollection and handling, sequence variability under primers/probes,or organism present below the limit of detection may lead to falsenegative results. Positive and negative predictive values oftesting are highly dependent on prevalence. False negative testresults are more likely when prevalence is high. SOURCE (test code = 27962) NOT SPECIFIED Note: Methodolog y is Adore Carrington Real-Time RT-PCR. The expected result or reference range is NEGATIVE (Not Detected). For more information regarding COVID-19 testing to include clinicalinformation, methodology detail, intended use, FDA authorization andrecommended fact sheets for patients or healthcare providers, see [employer] Announcement: SARS-CoV-2 (COVID-19) by NAAT at URL below (note,fact sheets are provided by method given in report:[email or web address] Alternatively, see downloadable PDF fact sheet at:https://www.[employer]. [employer]/CUWQK-06-PA-PCR UNLESS OTHERWISE INDICATED, ALL TESTING PERFORMED [facility] [employer], [facility]. [address] [place] [id number] SCRAP WORKER: RACHID ARRIOLA M.D. CLIA NUMBER [id number] [facility] [place]. [id number] 00:00:00* Test Item Value Reference Range Interpretation Comme nts TSH, THIRD GENERATION (test code = 2821) 2.200 UIU/ML Juliano RosarioACUTE HEPATITIS [id number] 00:00:00* Test Item Value Reference Range Interpretation Comme nts HEPATITIS A IgM (test code = 44209) NON-REACTIVE HEPATITIS B CORE IgM (test c ode = 4644) NON-REACTIVE HEPATITIS B SURF AG (test co de = 2739) NON-REACTIVE HEPATITIS C ANTIBODY (test c ode = 4675) NON-REACTIVE HCV INDEX (test code = 49836) 0.08 INTERPRETATION HEPATITIS A: (test code = 2552) (NOTE) INTERPRETATION HEPATITIS B: (test code = 24616) (NOTE) INTERPRETATION HEPATITIS C: (test code = 87347) (NOTE) Juliano RosarioRPR [id number] 00:00:00* Test Item Value Reference Range Interpretation Comme nts RPR NON-REFLEX (test code = 3499) NON-REACTIVE Juliano RosarioGC AND CHLAMYDIA, AMPLIFIED, [id number] 00:00:00* Test Item Value Reference Range Interpretation Comme nts GONORRHEA, TMA (test code = 98563) NEGATIVE CHLAMYDIA, TMA (test code = 32595) NEGATIVE Juliano RosarioHIV 1/2 4TH GEN, RFLX CONF [ADDED]2019-05-11 00:00:00* Test Item Value Reference Range Interpretation Comme nts HIV 1/2 4TH GEN, RFLX CONF ( test code = 3514) NON-REACTIVE Juliano RosarioVAGINAL PATHOGENS DNA [id number] 00:00:00* Test Item Value Reference Range Interpretation Comme nts CHANNING SPECIES (test code = 00438) NEGATIVE G. VAGINALIS (test code = 92583) POSITIVE T. VAGINALIS (test code = 65592) NEGATIVE Juliano Rosario Notes Date/Time Note Provider Source 2024-04-28 00:00:00 Amita/gsnNxcIq/D5U3zqoVNsZatJyk0TY [id number] 04-28T00:00:00+ +-------- ----+| Plan Activity | Plan Date |+ + +| Therapeutic lifestyle changes d/w pt. | 2019-04-13 |+ + +| Positive for G. Vaginalis | 2019-05-10 || Metrondiazole cream | || Discussed medication purpose and side effects | || Follow up with clinic if symptoms do not improve in one week | || Do not douche | || STD testing | || Appended: 2019-05-18 | || Start Metronidazole 500 mg PO BID x 7 days. Instructed to avoid alcohol while | || on Flagyl. | || Sexual hygiene | || Vaginal care. | |+ + +| Test Code: 9325 Description: ACUTE HEPATITIS PROFILE | 2019-05-10 || Test Code: 3500 Description: RPR | || Test Code: 3540 Description: HIV AB/AG COMBO RFLX CONF | || Test Code: 4123 Description: GC AND CHLAMYDIA AMPLIFIED, THINPREP | || Clinical treatment will be based on results. | || Discussed safe sex practices | |+ + +| Limit fat intake to no more than 20% to 35% of your total calorie intake. For a | 2019-12-08 || person following a 1,800-calorie diet, this means eating no more than 40 to 70 | || grams of fat each day. | || Choose complex carbohydrates, such as whole grains, vegetables, and fruits. | || About 45% to 65% of your total calorie intake should come from carbohydrate. | || For someone following a 1,800-calorie diet, this means eating about 200 to 300 | || grams of carbohydrate each day. | || Choose low-fat protein sources, such as fish, poultry, and legumes (for | || example, sparks beans, lentils, and split peas). About 10% to 35% of your total | || calorie intake should come from protein. For someone following a 1,800-calorie | || diet, this means eating about 45 to 160 grams of protein each day. | || Get enough fiber each day. Men should aim for 38 grams a day, and women should | || aim for 25 grams a day. | || Have no more than 1 alcohol drink a day for women and 2 alcohol drinks a day | || for men. | |+ + +| DuoNeb | 2019-09-20 || Azithromycin | || Avoid exposure to cigarette smoke or fumes. | || Drink plenty of water and stay well hydrated. | || You can use a saline nasal spray, which will clean out your nasal passages and | || help clear congestion. | || Good hand washing to prevent upper respiratory infections. | || Humidified air can improve mucus clearance. | || Discussed purpose and side effects of prescribed medications. | || Return to clinic if symptoms worsen over the next 7 days. | || Call 911 for emergency medical transport if a person has a temperature equal to | || or greater than 104 F (40 C), is confused, or is not responding to verbal | || stimuli or commands. | |+ + +| Bromfed DM | 2019-09-20 || Hand hygiene - good hand washing | || Minimize contact with others | || Humidify air to prevent drying of respiratory secretions. Recommend steam | || inhalation 20-30 minutes three times daily | || Saline irrigation (Neti pot) or saline nose drops for nasal congestion. | || Avoid exposure to cigarette smoke or fumes. | || Avoid caffeine and alcohol. | || Increase fluids. | || Get plenty of rest. | || Discussed purpose and side effects of prescribed medications. | || RTO if symptoms do not improve or worsen in 7-10 days | |+ + +| Limit fat intake to no more than 20% to 35% of your total calorie intake. For a | 2019-09-24 || person following a 1,800-calorie diet, this means eating no more than 40 to 70 | || grams of fat each day. | || Choose complex carbohydrates, such as whole grains, vegetables, and fruits. | || About 45% to 65% of your total calorie intake should come from carbohydrate. | || For someone following a 1,800-calorie diet, this means eating about 200 to 300 | || grams of carbohydrate each day. | || Choose low-fat protein sources, such as fish, poultry, and legumes (for | || example, sparks beans, lentils, and split peas). About 10% to 35% of your total | || calorie intake should come from protein. For someone following a 1,800-calorie | || diet, this means eating about 45 to 160 grams of protein each day. | || Get enough fiber each day. Men should aim for 38 grams a day, and women should | || aim for 25 grams a day. | || Have no more than 1 alcohol drink a day for women and 2 alcohol drinks a day | || for men. | |+ + +| Reviewed healthy eating habits with patient. | 2019-09-24 |+ + +| Exercise 30 minutes daily | 2019-09-24 || Discussed benefits of daily exercise | |+ + +| neck ultrasound, | 2019-12-08 || RTO for thyroid panel | || on left side of neck | || amoxicillin-pot clavulanate | || RTO after finish course of antibiotics to evaluate, if lymph node enlarged will | || order neck ultrasound, TSH | |+ + +| refer to ortho | 2019-12-22 || recommend ice/heat therapy | || recommend OTC ibuprofen/acetaminophen prn pain | |+ + +| COVID, FLU, RSV | 2022-07-29 || Bromfed take as directed | || macey dunaway not helping | |+ + +| wet mount to check for BV/Trich and confirm candidiasis diagnosis | 2024-04-28 || Fluconazole 150mg po x 1 | || rtc for worsening symptoms. | |+ + +[id number] Plan of TreatmentLNCARE PLANTXTS|[id number]|2.16.840.1.1 [id number]able for patient skwnOmbzlgsJdwgypztoFDFNz26 Section NarrativeNARRATIVEFormatted C-CDA narrative textSFAStjolie Penny [facility]2024-06-26T00:00:00 Juliano Penny [facility] 2024-04-01 13:30:30 2424-32-00W98:30:30 Pt informed of negative/normal results from 09/02/23. Pt c/o vaginal discharge and is asking if we are able to help her "flush out". Informed pt that we can schedule her in the clinic for an evaluation and depending on what type of infection she would receive medication to clear it. Pt states she does not have any insurance at this time, advised to call 211 to obtain help with medicaid or htw application. Pt states she will call them now and call back to schedule an appt in the [facility] closer to home for eval. [id number] encounter VicuLN2477-21-86R54:35:14Telephone encounter NoteTXT1.2.840.256339.1.13.104.2.7. [id number] for patient bayl36505-2DraoBVTZIXJOTAXPjumwosih C-CDA narrative [id number] Y Cruz RN[id number] [id number] 3:35:141.2.840.751219.1.72.3.15|1.2 .840.953015.1.13.104.2.7.2.727879_2 [id number] Na Barney RN [facility] 2024-04-01 13:24:33 0558-88-67R56:24:33 Copied from [facility] #[id number]. Topic: Clinical - Results>> April 01, 2024 1:22 PM Patient Chief Investigator wrote:Maida Tomlin is a 38 year old female requesting results from appt she had 09/02. Pt states she never got a call for results from that appt. Please call [phone] (home) [id number] encounter HxfzSH4143-82-28R79:25:05Telephone encounter NoteTXT1.2.840.989178.1.13.104.2.7. [id number] for patient wkqz26920-8GtjmKYTEQJHTWWXAvyzqqwwt C-CDA narrative [id number] L Martinez[id number] [id number] 3:25:051.2.840.547468.1.72.3.15|1.2 .840.5[id number] Sana Lee [facility]
--- NOTE | 2024-05-09 06:02 | EDPHYS ---
Physician Documentation [facility] Name: Maida Tomlin Age: 38 yrs Sex: Female : 1985 Arrival Date: 05/09/2024 Time: 05:31 Bed DX3 Private MD: ED Physician Randolph Zamarripa HPI: 05/09 05:52 This 38 yrs old Female presents to ER via Unassigned with complaints of Sore cp Throat, Fever. 05:52 The patient presents with sore throat. The patient describes throat pain as constant, cp scratchy. Onset: The symptoms/episode began/occurred last night. Severity of symptoms: in the emergency department the symptoms are unchanged, despite home interventions. Associated signs and symptoms: Pertinent positives: fever, Pertinent negatives cough, diarrhea, earache, headache, vomiting. 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 Flu vaccine is not up to date. - Infectious Disease History:: Denies. - Social history:: Smoking status: Patient denies any tobacco usage or history of. ROS: 05:57 Eyes: Negative for injury, pain, redness, and discharge, cp 05:57 Constitutional: Positive for fever, 05:57 ENT: Positive for sore throat, Negative for drainage from ear(s), ear pain, difficulty swallowing, difficulty handling secretions, 05:57 Respiratory: Negative for cough, shortness of breath, wheezing, 05:57 Abdomen/GI: Negative for abdominal pain, vomiting, diarrhea, constipation, 05:57 Neuro: Negative for headache, 05:57 All other systems are negative, Exam: 05:57 Head/Face: Normocephalic, atraumatic. cp 05:57 Constitutional: The patient appears in no acute distress, alert, awake, non-toxic, well developed, well nourished, 05:57 Eyes: Periorbital structures: appear normal, Conjunctiva: normal, no exudate, no injection, Sclera: no appreciated abnormality, Lids and lashes: appear normal, bilaterally, 05:57 ENT: External ear(s): are unremarkable, Ear canal(s): are normal, clear, TM's: dullness, bilaterally, Nose: is normal, Mouth: Lips: moist, Oral mucosa: pink and intact, moist, Posterior pharynx: Airway: no evidence of obstruction, patent, Tonsils: bilaterally enlarged, with erythema, no exudate, erythema, that is moderate, exudate, is not appreciated, 05:57 Neck: ROM/movement: Meningeal signs: are not present, nuchal rigidity, is not appreciated, Lymph nodes: lymphadenopathy is appreciated, anterior cervical nodes, 05:57 Chest/axilla: Inspection: normal, 05:57 Respiratory: the patient does not display signs of respiratory distress, Respirations: normal, no use of accessory muscles, no retractions, labored breathing, is not present, Breath sounds: are clear throughout, no decreased breath sounds, no stridor, no wheezing, 05:57 Abdomen/GI: Exam negative for discomfort, distension, guarding, Inspection: abdomen appears normal, Vital Signs: 05:56 BP 120 / 69; Pulse 106; Resp 18; Temp 100.1; Pulse Ox 98% ; Weight 68.04 kg; Height 5 vc1 ft. 1 in. ; Pain 10/10; 05:56 Body Mass Index 28.34 (68.04 kg, 154.94 cm) vc1 05:56 Pain Scale: Adult vc1 MDM: 05:43 Patient medically screened. cp 05:59 Differential diagnosis: apthous stomatitis, group A strep tonsillitis, laryngitis, cp mononucleosis, peritonsillar abscess pharyngitis, retropharyngeal abcess tonsillitis. Data reviewed: vital signs, nurses notes, and as a result, I will discharge patient. Counseling: I had a detailed discussion with the patient and/or guardian regarding the historical points, exam findings, and any diagnostic results supporting the discharge/admit diagnosis, to return to the emergency department if symptoms worsen or persist or if there are any questions or concerns that arise at home. Administered Medications: 06:11 Not Given (Other Intervention Used): uxktzdhrhyr626 mg PO once vc1 Disposition Summary: 05/09/24 06:01 Discharge Ordered Notes: Location: Home cp Problem: new cp Symptoms: have improved cp Condition: Stable cp Diagnosis - Acute tonsillitis, unspecified cp Followup: cp - With: Private Physician - When: 2 - 3 days - Reason: Recheck today's complaints Discharge Instructions: - Discharge Summary Sheet cp - Tonsillitis cp Forms: - Medication Reconciliation Form cp - Antibiotic Education cp - Prescription Opioid Use cp - Patient Portal Instructions cp - Leadership Thank You Letter cp - Work release form vc1 Prescriptions: - Augmentin 875-125 mg Oral Tablet - take 1 tablet ORAL route every 12 hours for 10 days; 20 tablet; Refills: 0, cp Product Selection Permitted - Ibuprofen 600 mg Oral tablet - take 1 tablet ORAL route every 8 hours As needed take with food; 30 tablet; cp Refills: 0, Product Selection Permitted Addendum: 05/12/2024 18:29 Co-signature as Attending Physician, Randolph Zamarripa MD I agree with the assessment and c diaz plan of care. Signatures: Randolph Zamarripa MD MD cha Page, Corey, PA PA Saray Garcia RN RN vc1
--- NOTE | 2024-05-09 06:02 | ER ---
Nurse's Notes [facility] Name: Maida Tomlin Age: 38 yrs Sex: Female : 1985 Arrival Date: 05/09/2024 Time: 05:31 Bed DX3 Private MD: Diagnosis: Acute tonsillitis, unspecified Presentation: 05/09 05:56 Chief complaint: Patient states: Throat hurts to swallow been running fever. vc1 Coronavirus screen: Client denies travel out of the [place] in the last 14 days. fever, shortness of breath, Client presents with at least one sign or symptom that may indicate coronavirus-19. Ebola Screen: Patient negative for fever greater than or equal to 101.5 degrees Fahrenheit, and additional compatible Ebola Virus Disease symptoms Patient denies exposure to infectious person. Patient denies travel to an Ebola-affected area in the 21 days before illness onset. No symptoms or risks identified at this time. Initial Sepsis Screen: Does the patient meet any 2 criteria? No. Patient's initial sepsis screen is negative. Does the patient have a suspected source of infection? No. Patient's initial sepsis screen is negative. Risk Assessment: Do you want to hurt yourself or someone else? Patient reports no desire to harm self or others. Onset of symptoms was May 09, 2024. 05:56 Method Of Arrival: Ambulatory vc1 05:56 Acuity: SARKIS 3 vc1 Triage Assessment: 06:00 General: Appears in no apparent distress. uncomfortable, ill, Behavior is calm, vc1 cooperative, appropriate for age. General: Reports fever for feeling ill for. Pain: Complains of pain in left aspect of posterior pharynx and right aspect of posterior pharynx Pain does not radiate. Pain currently is 10 out of 10 on a pain scale. Quality of pain is described as sharp. EENT: Throat is reddened Reports pain when swallowing Pain is 10 out of 10 on a pain scale. Neuro: Level of Consciousness is awake, alert, obeys commands, Oriented to person, place, time, situation, Appropriate for age. Cardiovascular: Patient's skin is warm and dry. Respiratory: Airway is patent Respiratory effort is even, unlabored, Respiratory pattern is regular, symmetrical, Breath sounds are clear bilaterally. GI: Abdomen is flat, non-distended. : No deficits noted. No signs and/or symptoms were reported regarding the genitourinary system. Derm: Skin is intact, is healthy with good turgor, Skin is dry, Skin is normal, Skin temperature is hot. Musculoskeletal: No deficits noted. No signs and/or symptoms reported regarding the musculoskeletal system. 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 Flu vaccine is not up to date. - Infectious Disease History:: Denies. - Social history:: Smoking status: Patient denies any tobacco usage or history of. Screenin:59 [facility] ED Fall Risk Assessment (Adult) History of falling in the last 3 months, vc1 including since admission No falls in past 3 months (0 pts) Confusion or Disorientation No (0 pts) Intoxicated or Sedated No (0 pts) Impaired Gait No (0 pts) Mobility Assist Device Used No (0 pt) Altered Elimination No (0 pt) Score/Fall Risk Level 0 - 2 = Low Risk Oriented to surroundings, Maintained a safe environment, Educated pt \T\ family on fall prevention, incl call for assistance when getting out of bed. Abuse screen: Denies threats or abuse. Nutritional screening: No deficits noted. Tuberculosis screening: No symptoms or risk factors identified. Assessment: 06:27 General: See triage assessment. vc1 Vital Signs: 05:56 BP 120 / 69; Pulse 106; Resp 18; Temp 100.1; Pulse Ox 98% ; Weight 68.04 kg; Height 5 vc1 ft. 1 in. ; Pain 10/10; 05:56 Body Mass Index 28.34 (68.04 kg, 154.94 cm) vc1 05:56 Pain Scale: Adult vc1 ED Course: 05:36 Patient arrived in ED. gm2 05:43 Randolph Tovar PA is PHCP. cp 05:43 Randolph Zamarripa MD is Attending Physician. cp 05:58 Triage completed. vc1 05:59 Arm band placed on right wrist. vc1 06:00 Patient has correct armband on for positive identification. Placed in gown. Call light vc1 in reach. Pulse ox on. NIBP on. 06:25 Saray Johnston, RN is Primary Nurse. vc1 06:25 No provider procedures requiring assistance completed. Patient did not have IV access vc1 during this emergency room visit. Administered Medications: 06:11 Not Given (Other Intervention Used): mg PO once vc1 Medication: 05:59 VIS not applicable for this client. vc1 Outcome: 06:01 Discharge ordered by . tasha 06:25 Discharged to home ambulatory, vc1 06:25 Condition: good :25 Discharge instructions given to patient, Instructed on discharge instructions, follow up and referral plans. medication usage, Demonstrated understanding of instructions, follow-up care, medications, Prescriptions given X 2, :28 Patient left the ED. vc1 Signatures: Randolph Tovar, PA PA Saray Garcia, RN RN vc1 Cady Bearden 2
[2024-05-09] MEDS ORDERED: MAGNES/ALUMIN/SIMET 30ML UCUP ONE (06:09)
[2024-05-09] MEDS ORDERED: LIDOCAINE VISCOUS 2% 10ML ORAL SOLN ONE (06:10)
[2024-05-09] MEDS ORDERED: AMOX/K CLAV 875 MG TAB ONE (06:14)
== END 2024-05-09 06:28 | disposition home or self-care (01) ==
LOC: ER 05:31
DX: J03.90 Acute tonsillitis, unspecified (principal)
CPT/HCPCS: 99283

== ENCOUNTER 2024-09-27 07:35 | Emergency (ER) | payer SELFPAY ==
--- OUTSIDE RECORDS SUMMARY | 2024-09-27 07:39 | XMS REPORT | Continuity of Care Document ---
Author Name Unknown Address [address] [facility] [address] [place] [address] [facility] Address [address] [facility] [place] [address] Care Team Providers Care Critical Care Unit Nurse Name Role Phone Analilia Stevens Primary Care Physician MARCELLUS VOGT Attending Clinician Unavailable Marcellus Dowling Attending Clinician [phone] JOHNNA KINGSTON Attending Clinician Unavaila ble Jason Harris Attending Clinician Unavailable Johnna Kingston CNM Attending Clinician [phone] Lilian Johnson Attending Clinician [phone] Anne Manriquez Attending Clinician + Lilian Johnson Attending Clinician [phone] ANNE BRADLEY Attending Clinician Unavail able FABIANO PÉREZ Attending Clinician Unavailable Pgy2 Attending Clinician Unavailable Fabiano Pérez MD Attending Clinician [phone] Jason Nelson Nurse Attending Clinician Unava Johnna Ellington CNM Attending Clinician [phone] Anne Manriquez Attending Clinician + Jason Harris Attending Clinician Unavailable Doctor Unassigned, [place] Attending Clinician U ARTIS Massey Attending Clinician Unavailab ESTHELA Hidalgo Attending Clinician UnavailSteven Stinson Attending Clinician [phone] Joseluis GUZMAN, Esthela Mueller Attending Clinician [phone] BROOK CALHOUN Attending Clinician Brook Carmona MD Attending Clinician Joannetalha MERINONa Sloan Luz Attending Clinician [phone] Payers Payer Name Policy Type Policy Number Effective Date Expirati on Date Source [place] [employer] [id number] 2022 00:00:00 Problems Condition Name Condition Details Condition Category Status Onset Date Resolution Date Last Treatment Date Treating Clinician Comments Source History of tubal ligation History of tubal ligation Disease Active 01-23 00:00: 00 [facility] Atypical squamous cell changes of undetermin ed significan ce (ASCUS) on cervical cytology with positive high risk human papilloma virus (HPV) Atypical squamous cell changes of undetermin ed significan ce (ASCUS) on cervical cytology with positive high risk human papilloma virus (HPV) Disease Active 2018-11 00:00: 00 Overview: Formattin g of this note might be different from the original. 11/11/2019- colpo done [facility] Atypical squamous cell changes of undetermin ed significan ce (ASCUS) on cervical cytology with positive high risk human papilloma virus (HPV) Atypical squamous cell changes of undetermin ed significan ce (ASCUS) on cervical cytology with positive high risk human papilloma virus (HPV) Disease Active 2018-11 00:00: 00 Overview: 11/11/2019- colpo done [facility] Other general counseling and advice for contracept marian management Other general counseling and advice for contracept marian management Disease Active 2018-11 00:00: 00 [facility] Obesity (BMI 30-39.9) Obesity (BMI 30-39.9) Disease Resolve d 2018-11 00:00: 00 2024-06-16 00:00:00 2024-06-16 09:56:52 [facility] Allergies, Adverse Reactions, Alerts Allergy Name Allergy Type Status Severity Reaction(s) Onset Date Inactive Date Treating Clinician Comments Source NO KNOWN ALLERGIE S Drug Class Active [facility] Social History Social Habit Start Date Stop Date Quantity Comments Source [facility] function 2024-06-16 00:00:00 2024-06-16 00:00:00 [facility] Alcoholic beverage intake 2024-06-16 00:00:00 2024-06-16 00:00:00 Ex-drinker (finding) [facility] Alcohol intake 2023-09-02 00:00:00 2023-09-02 00:00:00 Ex-drinker (finding) [facility] Tobacco use and exposure 2023-09-02 00:00:00 2023-09-02 00:00:00 Smokeless tobacco non-user [facility] Exposure to SARS-CoV-2 (event) 2023-03-16 00:00:00 2023-03-26 08:29:00 Not sure [facility] Sex assigned at 1985 00:00:00 1985 00:00:00 [facility] Smoking Status Start Date Stop Date Source Never smoked tobacco [facility] Medications Ordered Medication Name Filled Medication Name Start Date Stop Date Current Medication? Ordering Clinician Indication Dosage Frequency Signature (SIG) Comments Components Source doxycycline hyclate 100 mg capsule 06-18 00:00: 00 06-26 04:59 :00 No [id number] 100mg Take 1 capsule by mouth every 12 (twelve) hours for [address] [facility] metroNIDAZO LE 500 mg tablet 06-16 00:00: 00 Yes [id number] 500mg Take 1 tablet by mouth every 12 (twelve) hours. [facility] fluconazole 150 mg tablet 04-28 00:00: 00 Yes 1mg Juliano Rosario TAKE ONE (1) TABLET(S) BY MOUTH EVERY MORNING. 2022-11 00:00: 00 Yes Juliano Rosario norethindro ne-ethinyl estradiol (LOESTRIN 1/20, 21,) 1-20 mg-mcg per tablet 2022-11 00:00: 00 Yes [id number] 1{tbl} Take 1 tablet by mouth in the morning. [facility] TAKE ONE (1) TABLET(S) BY MOUTH TWICE [...] 01-27 00:00: 00 01-28 04:59 :00 No [id number] 150mg Take 1 tablet by mouth once now for [address] [facility] TAKE ONE (1) TABLET(S) BY MOUTH EVERY [...] % TOPICAL CREAM 05-11 00:00: 00 Yes [id number] Apply to area(s) at bedtime. [facility] HYDROCORTIS ONE-HYDROQU INONE-TRETI NOIN 1-4-0.025 % TOPICAL CREAM 05-11 00:00: 00 06-16 00:00 :00 No [id number] Apply to area(s) at bedtime. [facility] diclofenac 75 mg EC tablet 12-27 00:00: 00 01-26 04:59 :00 No [id number] 75mg Take 1 tablet by mouth 2 (two) times daily with meals for [address] [facility] amoxicillin 875 mg-potassapollou joon clavulanate 125 mg tablet 12-08 00:00: 00 Yes 1mg Juliano Rosario Bromfed DM 2 mg-30 mg-10 mg/5 mL oral syrup 12-08 00:00: 00 Yes 10mg/5 mL Juliano Rosario multivitami n tablet 11-11 00:00: 00 11-11 05:59 :00 No [id number] 1{tbl} Take 1 tablet by mouth daily. [facility] multivitami n tablet 11-11 00:00: 00 11-11 05:59 :00 No [id number] 1{tbl} Take 1 tablet by mouth daily. [facility] Dose Unknown 2018-11 00:00: 00 Yes Juliano Rosario VIOS Josie 2018-11 00:00: [address] [facility] VIOS Josie 2018-11 00:00: [address] [facility] ipratropium -albuterol 0.5 mg-3 mg(2.5 mg base)/3 mL nebulizer solution 2018-11 00:00: 00 06-16 00:00 :[address] [facility] VIOS Josie 2018-11 00:00: 00 06-16 00:00 :[address] [facility] metronidazo le 0.75 % vaginal gel 05-10 00:00: 00 Yes 1% Juliano Rosario metronidazo le 500 mg tablet 04-13 00:00: 00 Yes 1mg Juliano Rosario Immunizations Ordered Immunization Name Filled Immunization Name Date Status Comments Source HPV9 2023-07-28 00:00:00 Completed [facility] HPV9 2023-07-28 00:00:00 Completed [facility] HPV9 2023-03-26 00:00:00 Completed [facility] HPV9 2023-03-26 00:00:00 Completed [facility] HPV9 2023-03-26 00:00:00 Completed [facility] HPV9 2023-01-23 00:00:00 Completed [facility] HPV9 2023-01-23 00:00:00 Completed [facility] HPV9 2023-01-23 00:00:00 Completed [facility] HPV9 2023-01-23 00:00:00 Completed [facility] HPV9 2023-01-23 00:00:00 Completed [facility] HPV9 2023-01-23 00:00:00 Completed [facility] HPV9 2023-01-23 00:00:00 Completed HPV9 2023-01-23 00:00:00 Completed TDAP 2021-10-24 00:00:00 Completed [facility] TDAP 2021-10-24 00:00:00 Completed [facility] TDAP 2021-10-24 00:00:00 Completed [facility] TDAP 2021-10-24 00:00:00 Completed [facility] TDAP 2021-10-24 00:00:00 Completed [facility] TDAP 2021-10-24 00:00:00 Completed [facility] TDAP 2021-10-24 00:00:00 Completed [facility] TDAP 2021-10-24 00:00:00 Completed [facility] TDAP Unknown Completed [facility] HPV9 Unknown Completed [facility] TDAP Unknown Completed [facility] HPV9 Unknown Completed [facility] TDAP Unknown Completed [facility] HPV9 Unknown Completed [facility] TDAP Unknown Completed [facility] HPV9 Unknown Completed [facility] TDAP Unknown Completed [facility] HPV9 Unknown Completed [facility] TDAP Unknown Completed [facility] HPV9 Unknown Completed [facility] TDAP Unknown Completed [facility] HPV9 Unknown Completed [facility] TDAP Unknown Completed [facility] HPV9 Unknown Completed [facility] TDAP Unknown Completed [facility] HPV9 Unknown Completed [facility] TDAP Unknown Completed [facility] HPV9 Unknown Completed [facility] TDAP Unknown Completed [facility] HPV9 Unknown Completed [facility] Vital Signs Vital Name Observation Time Observation Value Comments Stepan chaparro Systolic blood pressure 2024-06-16 14:17:00 119 mm[Hg] [facility] Diastolic blood pressure 2024-06-16 14:17:00 65 mm[Hg] [facility] Heart rate 2024-06-16 14:17:00 59 /min Unive [facility] Body temperature 2024-06-16 14:17:00 36.22 Diane [facility] Respiratory rate 2024-06-16 14:17:00 18 /min [facility] Body height 2024-06-16 14:17:00 162.6 cm [facility] Body weight 2024-06-16 14:17:00 74.299 kg [facility] BMI 2024-06-16 14:17:00 28.12 kg/m2 [facility] Systolic blood pressure 2023-09-02 18:39:00 113 mm[Hg] [facility] Diastolic blood pressure 2023-09-02 18:39:00 71 mm[Hg] [facility] Heart rate 2023-09-02 18:39:00 78 /min Unive [facility] Body temperature 2023-09-02 18:39:00 36.44 Diane [facility] Respiratory rate 2023-09-02 18:39:00 19 /min [facility] Body height 2023-09-02 18:39:00 162.6 cm [facility] Body weight 2023-09-02 18:39:00 70.988 kg [facility] BMI 2023-09-02 18:39:00 26.86 kg/m2 [facility] Body temperature 2023-07-28 14:55:00 36.44 Diane [facility] Body temperature 2023-03-26 13:32:00 36.28 Diane [facility] Respiratory rate 2023-03-26 13:32:00 20 /min [facility] Body weight 2023-03-26 13:32:00 78.064 kg [facility] BMI 2023-03-26 13:32:00 33.61 kg/m2 [facility] Systolic blood pressure 2023-01-23 21:39:00 117 mm[Hg] [facility] Diastolic blood pressure 2023-01-23 21:39:00 73 mm[Hg] [facility] Heart rate 2023-01-23 21:39:00 87 /min Unive [facility] Body temperature 2023-01-23 21:39:00 35.83 Diane [facility] Respiratory rate 2023-01-23 21:39:00 18 /min [facility] Body height 2023-01-23 21:39:00 152.4 cm [facility] Body weight 2023-01-23 21:39:00 77.338 kg [facility] BMI 2023-01-23 21:39:00 33.30 kg/m2 [facility] Systolic blood pressure 2020-08-03 13:35:00 98 mm[Hg] [facility] Diastolic blood pressure 2020-08-03 13:35:00 62 mm[Hg] [facility] Heart rate 2020-08-03 13:35:00 67 /min Unive [facility] Body temperature 2020-08-03 13:35:00 36.78 Diane [facility] Respiratory rate 2020-08-03 13:35:00 16 /min [facility] Body height 2020-08-03 13:35:00 154.9 cm [facility] Body weight 2020-08-03 13:35:00 74.844 kg [facility] BMI 2020-08-03 13:35:00 31.18 kg/m2 [facility] Systolic blood pressure 2020-08-03 13:35:00 98 mm[Hg] [facility] Diastolic blood pressure 2020-08-03 13:35:00 62 mm[Hg] [facility] Heart rate 2020-08-03 13:35:00 67 /min Unive [facility] Body temperature 2020-08-03 13:35:00 36.78 Diane [facility] Respiratory rate 2020-08-03 13:35:00 16 /min [facility] Body height 2020-08-03 13:35:00 154.9 cm [facility] Body weight 2020-08-03 13:35:00 74.844 kg [facility] BMI 2020-08-03 13:35:00 31.18 kg/m2 [facility] Systolic blood pressure 2019-12-27 19:56:00 112 mm[Hg] [facility] Diastolic blood pressure 2019-12-27 19:56:00 63 mm[Hg] [facility] Heart rate 2019-12-27 19:56:00 88 /min [facility] Body height 2019-12-27 19:56:00 154.9 cm [facility] Body weight 2019-12-27 19:56:00 74.844 kg [facility] BMI 2019-12-27 19:56:00 31.18 kg/m2 [facility] Heart Rate 2024-04-28 10:25:00 81.00 /min Marsha en F Abraham Respiratory Rate 2024-04-28 10:25:00 16.00 /min Juliano F Abraham BP Systolic 2024-04-28 10:25:00 114 mm[Hg] Step hen F Abraham BP Diastolic 2024-04-28 10:25:00 70 mm[Hg] Ariel phen F Abraham Weight Measured 2024-04-28 10:25:00 158.80 pounds Juliano F Abraham Height Measured 2024-04-28 10:25:00 61.50 inches Juliano F Abraham Body Temperature 2024-04-28 10:25:00 98.20 degrees Juliano F Abraham BP Systolic 2022-07-29 14:38:00 120 [...] Weight Measured 2019-05-10 11:51:00 160.00 pounds Juliano Rosario Height Measured 2019-05-10 11:51:00 61.50 inches Juliano F Abraham Body Temperature 2019-05-10 11:51:00 98.30 degrees Juliano F Abraham Heart Rate 2019-05-10 11:51:00 88.00 /min Marsha en F Abraham Respiratory Rate 2019-05-10 11:51:00 17.00 /min Juliano F Abraham BP Systolic 2019-04-13 14:52:00 102 mm[Hg] Step hen F Abraham BP Diastolic 2019-04-13 14:52:00 72 mm[Hg] Ariel phen F Abraham Weight Measured 2019-04-13 14:52:00 160.40 pounds Juliano Rosario Height Measured 2019-04-13 14:52:00 61.50 inches Juliano Rosario Body Temperature 2019-04-13 14:52:00 99.40 degrees Juliano Rosario Heart Rate 2019-04-13 14:52:00 69.00 /min Marsha en F Abraham Respiratory Rate 2019-04-13 14:52:00 16.00 /min Juliano Bess Rosario Procedures Procedure Date / Time Performed Performing Clinicia n Source GARDASIL 9 (HPV 9V) VACCINE 2023-07-28 14:55:44 Anne Bradley [facility] GARDASIL 9 (HPV 9V) VACCINE 2023-03-26 13:40:57 Anne Bradley [facility] PAP SMEAR-LIQUID BASED-CP 2023-01-23 21:43:00 Anne Bradley [facility] GARDASIL 9 (HPV 9V) VACCINE 2023-01-23 21:31:18 Anne Bradley [facility] CONSENT/REFUSAL FOR DIAGNOSIS AND TREATMENT 2023-01-23 21:16:34 Doctor Unassigned, [place] [facility] REFERRAL- REQUEST/RESPONSE 2019-12-22 06:01:00 Doctor Unassigned, [place] [facility] Encounters Start Date/Time End Date/Time Encounter Type Admission Type Attending Clinicians Care Facility Care Department Encounter ID Source 2024-09-21 00:00:00 2024-09-21 16:17:32 Telephone Marcellus Vogt [facility] CONTENT PUBLISHER [facility] & CHILD [facility] 1.2.840.114 350.1.13.10 4.2.7.2.[id number] [facility] 2024-09-20 08:45:00 2024-09-20 09:23:22 Outpatient R JOHNNA KINGSTON [facility] [id number] [facility] 2024-09-20 08:45:00 2024-09-20 09:23:22 Client Support Associate Visit Lab, Johnna Steve Lab, Ovisheron [facility] CONTENT PUBL[facility] & CHILD [facility] 1.2.840.114 350.1.13.10 4.2.7.2.[id number] [facility] 2024-08-16 00:00:00 2024-08-26 10:59:20 Telephone Lilian Mullen [facility] [place] ([facility] 1..840.114 350.1.13.10 4.2.7.2.[id number] [facility] 2024-08-17 08:30:00 2024-08-17 08:30:00 Outpatient R [facility] [id number] [facility] 2024-07-30 00:00:00 2024-08-04 10:13:19 Telephone Anne Bradley [facility] CONTENT PUBL[facility]ER [facility] & CHILD [facility] 1.840.114 350.1.13.10 4.2.7.2.[id number] [facility] 2024-07-30 10:30:00 2024-07-30 10:30:00 Outpatient R [facility] [id number] [facility] 2024-06-25 00:00:00 2024-06-25 16:41:46 Telephone SinMarcellus [facility] CONTENT PUBLISHER [facility]NAL & CHILD [facility] 1.2.840.114 350.1.13.10 4.2.7.2.[id number] [facility] 2024-06-21 00:00:00 2024-06-21 09:12:35 Telephone Marcellus Vogt [facility] CONTENT PUBL[facility]ER [facility] CHILD [facility] 1.2.840.114 350.1.13.10 4.2.7.2.[id number] [facility] 2024-06-18 00:00:00 2024-06-18 10:16:47 Telephone Johnna Kingston [facility] CONTENT PUBL[facility]ER [facility] CHILD [facility] 1.2.840.114 350.1.13.10 4.2.7.2.[id number] [facility] 2024-06-18 00:00:00 2024-06-18 08:31:04 Telephone SinMarcellus [facility] CONTENT PUBL[facility]ER [facility] CHILD [facility] 1.2.840.114 350.1.13.10 4.2.7.2.[id number] [facility] 2024-06-16 09:15:00 2024-06-16 10:01:28 Outpatient R MARCELLUS VOGT [facility] [id number] [facility] 2024-06-16 09:15:00 2024-06-16 10:01:28 Office Visit Marcellus Vogt [facility] CONTENT PUBL[facility]ER [facility] CHILD [facility] 1.2.840.114 350.1.13.10 4.2.7.2.[id number] [facility] 2024-06-16 08:30:00 2024-06-16 08:30:00 Outpatient R JOHNNA KINGSTON [facility] [id number] [facility] 2024-04-28 10:15:50 2024-04-28 10:15:50 Outpatient [facility] [id number] Juliano Rosario 2024-04-28 00:00:00 2024-04-28 00:00:00 Outpatient Visit [facility] [id number] Juliano Rosario 2024-04-26 15:42:42 2024-04-26 15:42:42 Outpatient [facility] [id number] Juliano Rosario 2024-04-01 00:00:00 2024-04-01 13:35:15 Telephone [facility] ..114 350.1.13.10 4.2.7.2.[id number] [facility] 2024-02-18 16:24:57 2024-02-18 16:24:57 Outpatient [facility] [id number] Juliano Rosario 2024-01-26 13:30:00 2024-01-26 13:30:00 Outpatient R AKINENRIQUEGISELLMINDIANNE [facility] [id number] [facility] 2023-12-03 13:30:00 2023-12-03 13:30:00 Outpatient R [facility] [id number] [facility] 2023-09-02 13:30:00 2023-09-02 14:56:03 Outpatient R FABIANO PÉREZ [facility] [id number] [facility] 2023-09-02 13:30:00 2023-09-02 14:56:03 Office Visit Pgy2 Fabiano Pérez [facility] ..114 350.1.13.10 4.2.7.2.[id number] [facility] 2023-08-26 00:00:00 2023-08-26 00:00:00 Telephone [facility] ..114 350.1.13.10 4.2.7.2.[id number] [facility] 2023-08-19 00:00:00 2023-08-19 00:00:00 Telephone Lilian Mullen [facility] 1.840.114 350.1.13.10 4.2.7.2.[id number] [facility] 2023-07-28 10:00:00 2023-07-28 10:15:00 [facility] & CHILD [facility] 1..840.114 350.1.13.10 4.2.7.2.[id number] [facility] 2023-07-28 10:00:00 2023-07-28 09:59:01 Outpatient JOHNNA REGALADO [facility] [id number] [facility] 2023-07-28 00:00:00 2023-07-28 00:00:00 Telephone Johnna Kingston [facility] CONTENT PUBLISHER [facility] & CHILD [facility] 1..840.114 350.1.13.10 4.2.7.2.[id number] [facility] 2023-03-26 10:30:00 2023-03-26 10:30:00 Outpatient JOHNNA REGALADO [facility] [id number] [facility] 2023-03-26 08:30:00 2023-03-26 08:45:00 [facility] CONTENT PUBL[facility]ER [facility] & CHILD [facility] ..840.114 350.1.13.10 4.2.7.2.[id number] [facility] 2023-03-26 08:30:00 2023-03-26 08:30:00 Outpatient JOHNNA REGALADO [facility] [id number] [facility] 2023-02-04 00:00:00 2023-02-04 00:00:00 Telephone Anne Bradley [facility] CONTENT PUBLISHER [facility] 1.2.840.114 350.1.13.10 4.2.7.2.[id number] [facility] 2023-02-04 00:00:00 2023-02-04 00:00:00 Telephone Anne Bradley [facility] CONTENT PUBLISHER [facility] 1.2.840.114 350.1.13.10 4.2.7.2.[id number] [facility] 2023-01-30 08:30:00 2023-01-30 08:45:00 Client Support Associate Visit Lab, [facility] Anne Bradley [facility] CONTENT PUBLISHER [facility] 1.2.840.114 350.1.13.10 4.2.7.2.[id number] [facility] 2023-01-30 08:30:00 2023-01-30 08:30:00 Outpatient R ANNE BRADLEY [facility] [id number] [facility] 2023-01-27 00:00:00 2023-01-27 00:00:00 Telephone Anne Bardley [facility] CONTENT PUBLISHER [facility] 1.2.840.114 350.1.13.10 4.2.7.2.[id number] [facility] 2023-01-23 15:45:00 2023-01-23 16:40:06 Outpatient R ANNE BRADLEY [facility] [id number] [facility] 2023-01-23 15:45:00 2023-01-23 16:40:06 Office Visit Anne Bradley CONTENT PUBLISHER [facility] 1.2.840.114 350.1.13.10 4.2.7.2.[id number] [facility] 2023-01-23 00:00:00 2023-01-23 00:00:00 Orders Only Doctor Unassigned, [place] [facility] 1.2.840.114 350.1.13.10 4.2.7.2.[id number] [facility] 2020-11-21 10:45:00 2020-11-21 10:45:00 Outpatient ARTIS MATTHEWS [facility] [id number] [facility] 2020-11-13 15:00:00 2020-11-13 15:00:00 Outpatient ARTIS MATTHEWS [facility] [id number] [facility] 2020-08-03 09:00:00 2020-08-03 09:00:00 Outpatient ANNE ALEX [facility] [id number] [facility] 2020-08-03 08:23:11 2020-08-03 08:59:25 Office Visit Anne Bradley [facility] CONTENT PUBLISHER [facility] CHILD [facility] 1.2.840.114 350.1.13.10 4.2.7.2.[id number] [facility] 2020-08-03 08:23:11 2020-08-03 08:59:25 Office Visit Anne Bradley [facility] CONTENT PUBLISHER [facility] 1.2.840.114 350.1.13.10 4.2.7.2.686 [id number] 2020-05-18 16:45:00 2020-05-18 16:45:00 Outpatient ESTHELA FABIAN [facility] [id number] [facility] 2020-05-11 10:15:00 2020-05-11 10:15:00 Outpatient ESTHELA FABIAN [facility] [id number] [facility] 2020-05-11 09:55:33 2020-05-11 10:10:33 Office Visit Steven Torres Esthela Ami [facility] 1.114 [id number] [id number] [facility] 2020-01-17 16:15:00 2020-01-17 16:15:00 Outpatient R BROOK CALHOUN [facility] [id number] [facility] 2019-12-27 13:52:41 2019-12-27 14:14:45 Office Visit Brook Calhoun [facility] Lukas 1..114 350.1.13.10 [id number] [facility] 2019-12-27 13:45:00 2019-12-27 13:45:00 Outpatient R BROOK CALHOUN [facility] [id number] [facility] 2019-12-27 00:00:00 2019-12-27 00:00:00 Letter (Out) Brook Calhoun [facility] Special jossy Gaytan 1..114 350.1.13.10 [id number] [facility] 2019-12-22 00:00:00 2019-12-22 00:00:00 Orders Only Doctor Unassigned, [facility] 1.114 [id number] [id number] [facility] 2019-11-15 00:00:00 2019-11-15 00:00:00 Telephone Na Rubio [facility] 1.114 [id number] [facility] Results Test Description Test Time Test Comments Results Result Co mments Source SARS-CoV-2 (COVID-19), RT-PCR/[id number] 10:45:46* Test Item Value Reference Range Interpretation Comments SARS-CoV-2 INTERPRETATION (test code = 89923) NEGATIVE SEE NOTE SARS-CoV-2 R NA NOT [...] prevalence is high. SOURCE (test code = 39678) NOT SPECIFIED Note: Methodolog y is Adore Carrington Real-Time RT-PCR. The expected result or reference range is NEGATIVE (Not Detected). For more information regarding COVID-19 testing to include clinicalinformation, methodology detail, intended use, FDA authorization andrecommended fact sheets for patients or healthcare providers, see [employer] Announcement: SARS-CoV-2 (COVID-19) by NAAT at URL below (note,fact sheets are provided by method given in report:[email or web address]/ Alternatively, see downloadable PDF fact sheet at:[email or web address]-[email or web address] UNLESS OTHERWISE INDICATED, ALL TESTING PERFORMED [facility] [address] [place] [address] COUNSELOR SUPERVISOR: RACHID ARRIOLA M.D. CLIA NUMBER [id number] [facility] [place]. [id number] 00:00:00* Test Item Value Reference Range Interpretation Comme nts TSH, THIRD GENERATION (test code = 2821) 2.200 UIU/ML Juliano RosarioACUTE HEPATITIS [id number] 00:00:00* Test Item Value Reference Range Interpretation Comme nts HEPATITIS A IgM (test code = 14050) NON-REACTIVE HEPATITIS B CORE IgM (test c ode = 4644) NON-REACTIVE HEPATITIS B SURF AG (test co de = 2739) NON-REACTIVE HEPATITIS C ANTIBODY (test c ode = 4675) NON-REACTIVE HCV INDEX (test code = 07670) 0.08 INTERPRETATION HEPATITIS A: (test code = 2552) (NOTE) INTERPRETATION HEPATITIS B: (test code = 63268) (NOTE) INTERPRETATION HEPATITIS C: (test code = 96643) (NOTE) Juliano RosarioRPR [id number] 00:00:00* Test Item Value Reference Range Interpretation Comme nts RPR NON-REFLEX (test code = 3499) NON-REACTIVE Juliano RosarioGC AND CHLAMYDIA, AMPLIFIED, [id number] 00:00:00* Test Item Value Reference Range Interpretation Comme nts GONORRHEA, TMA (test code = 25750) NEGATIVE CHLAMYDIA, TMA (test code = 56900) NEGATIVE Juliano RosarioHIV 1/2 4TH GEN, RFLX CONF [ADDED]2019-05-11 00:00:00* Test Item Value Reference Range Interpretation Comme nts HIV 1/2 4TH GEN, RFLX CONF ( test code = 3514) NON-REACTIVE Juliano RosarioVAGINAL PATHOGENS DNA [id number] 00:00:00* Test Item Value Reference Range Interpretation Comme nts CHANNING SPECIES (test code = 99928) NEGATIVE G. VAGINALIS (test code = 60808) POSITIVE T. VAGINALIS (test code = 18434) NEGATIVE Juliano Rosario Notes Date/Time Note Provider Source 2024-09-21 16:16:50 Called pt, notified of new results. Verbalized understanding and no questions or concerns at this time. 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 ERIK Donald 09/21/2024 3:55 PM [facility] 2024-08-26 10:58:51 LVM WITH CALLBACK NUMBER FOR SCHEDULING Esther Husain [facility] 2024-08-24 07:45:58 Please review and close this encounter. Thank you. Zoraida Kong [facility] 2024-08-16 14:31:53 Maida Tomlin is a 39 year old female is needing to reschedule Colpo appt. Please call. Thank you. T [facility] 2024-08-04 10:13:11 Noted. [facility] 2024-08-04 10:07:10 Patient has appointment scheduled in [place] 08/17/24. Shivani Busby [facility] 2024-08-02 10:54:20 Do we know when the next time we will have colpo clinic, patient is willing to go to [place] as well. [facility] 2024-07-30 08:26:56 Maida Tomlin is a 39 year old female is calling to reschedule Colpo appt for today due to not having proof of income. Please call. Thank you. Zoraida Jimenez Luann [facility] 2024-06-25 16:26:02 Called patient and scheduled colpo. Shivani Busby [facility] 2024-06-25 15:25:59 Patient informed of results and need for colpo. Pt informed will route to pss to schedule for fs for BCCS and have her scheduled for colpo here in clinic on 07/30, verbalized understanding. T [facility] 2024-06-25 15:21:31 Patient returned missed call from nurse Chichi Hendricks [facility] 2024-06-25 14:52:24 Attempted to call patient, no answer, left vm. [facility] 2024-06-25 12:00:10 Please make pt aware that she needs an appt for a colposcopy due to ASCUS pap with +HPV and her pap history. ERIK Donald 06/25/2024 12:02 PM [facility] 2024-06-21 09:01:50 Patient informed of results and new orders for BV. Patient informed of positive results for trich. Informed pt she is already taking medication that will cover both infections. Informed to still remain abstinent x 2 weeks after her and partner are completed with medication. Call placed to [facility] in [place], order given for Flagyl 500 mg 4 tabs PO x 1 dose for Jed Huntley :11/10/1982 NKDA [phone]. [facility] 2024-06-21 08:25:18 Please make pt aware that she is positive for trich and BV. The metronidazole she was prescribed at the office visit will cover both infections. Pt needs to inform partner of positive trich so they may receive treatment. Metronidazole 2g PO x 1, no refills. ERIK Donald 06/21/2024 8:31 AM [facility] 2024-06-18 10:11:04 Call placed to patient and verified partner information, call placed to [facility] in , order given for doxycycline hyclate 100 mg 1 cap PO BID x 7days for Jed Huntley NKDA Ph. [phone] Pt wanted to know if she could continue flagyl and start doxycycline, informed to continue flagyl and start new medication. [facility] 2024-06-18 10:09:45 Pt is requesting call back to discuss medication and if she should keep taking other medication that was given previously. Please call [phone] (home) [facility] RUDI Simpson [facility] 2024-06-18 10:07:02 Pt is calling with info of partner for medication to be called in, Jed Huntley [birth year] [facility] 2024-06-18 08:27:10 Notified the patient of her positive STI results chlamydia. Notified the patient her medication has been sent to her pharmacy on file. Educated patient she should complete the entire course, advised patient to practice safe sex practices and to remain abstinent for at least 1-2 weeks post treatment. Patient desires to have partner treated, will call back with partner information. Offered std pamphlet for partner education. Patient declines std pamphlet to be mailed to partner. Advised patient on HIV testing if she has not recently been tested. Advised [facility] appointment in 3 months. Pt verbalized understanding. Informed of positive HPV results and awaiting pap smear results for POC, verbalized understanding. T [facility] 2024-06-18 08:10:12 Please make pt aware that she is positive for chlamydia. Prescription for treatment has been sent to pharmacy. Advise to abstain for at least 2 weeks. RTC in 3 months for [facility]. Partner needs testing/treatment as well. Partner may have doxycycline hyclate 100mg PO BID x 7 days, no refills. Pt is also positive for HPV. Awaiting pap result to determine plan of care. ERIK Donald 06/18/2024 8:13 AM [facility] 13:30:30 Pt informed of negative/normal results from 09/02/23. [...] back to schedule an appt in the [facility] closer to home for eval. Na Barney [facility] [id number] 13:24:33 Copied from [facility] #[id number]. 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 Pt states she never got a call for results from that appt. Please call [phone] (home) Sana No [facility]
[2024-09-27] MEDS ORDERED: IBUPROFEN 200 MG TAB PO ONE (08:24)
[2024-09-27] MEDS ORDERED: IBUPROFEN 400 MG TAB ONE (08:24)
[2024-09-27] MEDS ORDERED: MAGNES/ALUMIN/SIMET 30ML UCUP ONE (08:24)
[2024-09-27] MEDS ORDERED: AMOX/K CLAV 875 MG TAB ONE (08:24)
[2024-09-27] MEDS ORDERED: LIDOCAINE VISCOUS 2% 10ML ORAL SOLN ONE (08:25)
[2024-09-27] MEDS ORDERED: BENZONATATE 100 MG CAP PO ONE (08:25)
[2024-09-27 08:29] LABS: SARS-CoV-2 Antigen CONTROL BLUE LINE VIS/BG OK; SARS-CoV-2 Antigen Rapid Res Negative (Negative)
--- NOTE | 2024-09-27 08:57 | ER ---
Nurse's Notes [facility] Name: Maida Tomlin Age: 39 yrs Sex: Female : 1985 Arrival Date: 09/27/2024 Time: 07:35 Bed 14 Private MD: Diagnosis: Fever, unspecified;Acute upper respiratory infection, unspecified;Acute pharyngitis, unspecified Presentation: 09/27 07:45 Chief complaint: Patient states: COUGH, SORE THROAT, DECREASED APPETITE, BODY ACHES, aa5 AND SUBJECTIVE FEVER SINCE LAST NIGHT. 07:45 Coronavirus screen: cough unrelated to allergies, sore throat. Ebola Screen: Patient aa5 denies travel to an Ebola-affected area in the 21 days before illness onset. Initial Sepsis Screen: Does the patient meet any 2 criteria? HR > 90 bpm. Does the patient have a suspected source of infection? No. Patient's initial sepsis screen is negative. Risk Assessment: Do you want to hurt yourself or someone else? Patient reports no desire to harm self or others. Onset of symptoms was September 2024. 07:45 Acuity: SARKIS 4 aa5 07:45 Method Of Arrival: Ambulatory aa5 Historical: - Allergies: 07:45 No Known Allergies; aa5 - Home Meds: 07:45 None [Active]; aa5 - PMHx: 07:45 None; aa5 - PSHx: 07:45 tubal ligation; aa5 - Immunization history:: Adult Immunizations unknown. - Infectious Disease History:: Denies. - Social history:: Smoking status: Patient denies any tobacco usage or history of. - Family history:: not pertinent. Screenin:45 [facility] ED Fall Risk Assessment (Adult) History of falling in the last 3 months, aa5 including since admission No falls in past 3 months (0 pts) Confusion or Disorientation No (0 pts) Intoxicated or Sedated No (0 pts) Impaired Gait No (0 pts) Mobility Assist Device Used No (0 pt) Altered Elimination No (0 pt) Score/Fall Risk Level 0 - 2 = Low Risk Oriented to surroundings, Maintained a safe environment, Educated pt \T\ family on fall prevention, incl call for assistance when getting out of bed. Abuse screen: Denies threats or abuse. Nutritional screening: No deficits noted. Tuberculosis screening: No symptoms or risk factors identified. Assessment: 07:45 General: Appears comfortable, Behavior is calm, cooperative. Pain: Complains of pain in aa5 throat and whole body Quality of pain is described as sore Pain began 1 day ago. Is intermittent. Neuro: Level of Consciousness is awake, alert, obeys commands, Oriented to person, place, time, situation. Cardiovascular: Patient's skin is warm and dry. Respiratory: Reports cough Airway is patent Respiratory effort is even, unlabored, Respiratory pattern is regular, symmetrical. GI: Abdomen is non-distended, Bowel sounds present X 4 quads. Abd is soft and non tender X 4 quads. Reports decreased appetite. : No signs and/or symptoms were reported regarding the genitourinary system. EENT: Reports sore throat . Derm: Skin is pink, warm \T\ dry. Musculoskeletal: Range of motion: intact in all extremities. 08:29 Reassessment: Patient is alert, oriented x 3, equal unlabored respirations, skin aa5 warm/dry/pink. 09:20 Reassessment: Patient is alert, oriented x 3, equal unlabored respirations, skin aa5 warm/dry/pink. Vital Signs: 07:45 BP 107 / 72; Pulse 96; Resp 16 S; Temp 98.4(O); Pulse Ox 99% on R/A; Weight 68.04 kg aa5 (R); Height 5 ft. 0 in. (R); 09:15 BP 111 / 69; Pulse 89; Resp 18 S; Pulse Ox 99% on R/A; aa5 07:45 Body Mass Index 29.29 (68.04 kg, 152.4 cm) aa5 ED Course: 07:39 Patient arrived in ED. im 07:42 Bijal Hernandez, RN is Primary Nurse. aa5 07:45 Arm band placed on Patient placed in an exam room, on a stretcher. aa5 07:45 Patient has correct armband on for positive identification. Bed in low position. Call aa5 light in reach. Side rails up X 1. Pulse ox on. NIBP on. 07:46 Triage completed. aa5 07:49 Randolph Zamarripa MD is Attending Physician. rayna 07:58 No provider procedures requiring assistance completed. aa5 09:20 Patient did not have IV access during this emergency room visit. aa5 Administered Medications: 08:29 Drug: Amoxicillin-Clavulanate PO 875 mg PO once Route: PO; aa5 09:20 Follow up: Response: No adverse reaction aa5 08:29 Drug: Ibuprofen PO 600 mg PO once Route: PO; aa5 09:20 Follow up: Response: No adverse reaction aa5 08:29 Drug: Tessalon Perle PO 200 mg PO once Route: PO; aa5 09:20 Follow up: Response: No adverse reaction aa5 08:29 Drug: GI Cocktail without - (Maalox PO 30 ml, Lidocaine Mucous Membrane 2 % 15 aa5 ml) PO once Route: PO; 09:20 Follow up: Response: No adverse reaction aa5 Medication: 07:56 VIS not applicable for this client. aa5 Outcome: 08:57 Discharge ordered by . rayna 09:20 Discharged to home ambulatory, aa5 09:20 Condition: stable 09:20 Discharge instructions given to patient, Instructed on discharge instructions, follow up and referral plans. medication usage, Demonstrated understanding of instructions, follow-up care, medications, Prescriptions given X 4, 09:22 Patient left the ED. kc6 Signatures: Randolph Zamarripa MD MD cha Calderon, Audri, RN RN aa5 Tiffany Pack RN RN kc6 Concha Francisco
--- NOTE | 2024-09-27 08:57 | EDPHYS ---
Physician Documentation [facility] Name: Maida Tomlin Age: 39 yrs Sex: Female : 1985 Arrival Date: 09/27/2024 Time: 07:35 Bed 14 Private MD: ED Physician Randolph Zamarripa HPI: 09/27 08:16 This 39 yrs old Female presents to ER via Ambulatory with complaints of Flu rayna Symptoms. 08:16 The patient or guardian reports airway noise, cough, flu symptoms, arthralgias, rayna low-grade fever, myalgias. Onset: The symptoms/episode began/occurred 2 day(s) ago. Modifying factors: The symptoms are alleviated by remaining still, the symptoms are aggravated by activity, cold environment. The patient or guardian reports. Severity of symptoms: At their worst the symptoms were mild, in the emergency department the symptoms are unchanged. Associated signs and symptoms: The patient has no apparent associated signs or symptoms. Historical: - Allergies: 07:45 No Known Allergies; aa5 - Home Meds: 07:45 None [Active]; aa5 - PMHx: 07:45 None; aa5 - PSHx: 07:45 tubal ligation; aa5 - Immunization history:: Adult Immunizations unknown. - Infectious Disease History:: Denies. - Social history:: Smoking status: Patient denies any tobacco usage or history of. - Family history:: not pertinent. ROS: 08:16 Constitutional: Negative for fever, chills, and weight loss, Eyes: Negative for injury, rayna pain, redness, and discharge, Neck: Negative for injury, pain, and swelling, Cardiovascular: Negative for chest pain, palpitations, and edema, Respiratory: Negative for shortness of breath, cough, wheezing, and pleuritic chest pain, Abdomen/GI: Negative for abdominal pain, nausea, vomiting, diarrhea, and constipation, Back: Negative for injury and pain, : Negative for injury, bleeding, discharge, and swelling, MS/Extremity: Negative for injury and deformity, Skin: Negative for injury, rash, and discoloration, Neuro: Negative for headache, weakness, numbness, tingling, and seizure, Psych: Negative for depression, anxiety, suicide ideation, homicidal ideation, and hallucinations, Allergy/Immunology: Negative for hives, rash, and allergies, Endocrine: Negative for neck swelling, polydipsia, polyuria, polyphagia, and marked weight changes, Hematologic/Lymphatic: Negative for swollen nodes, abnormal bleeding, and unusual bruising, 08:16 ENT: Positive for difficulty swallowing, rhinorrhea, sinus congestion, sore throat, Exam: 08:16 Constitutional: This is a well developed, well nourished patient who is awake, alert, rayna and in no acute distress. Head/Face: Normocephalic, atraumatic. Eyes: Pupils equal round and reactive to light, extra-ocular motions intact. Lids and lashes normal. Conjunctiva and sclera are non-icteric and not injected. Cornea within normal limits. Periorbital areas with no swelling, redness, or edema. Neck: Trachea midline, no thyromegaly or masses palpated, and no cervical lymphadenopathy. Supple, full range of motion without nuchal rigidity, or vertebral point tenderness. No Meningismus. Chest/axilla: Normal chest wall appearance and motion. Nontender with no deformity. No lesions are appreciated. Cardiovascular: Regular rate and rhythm with a normal S1 and S2. No gallops, murmurs, or rubs. Normal PMI, no JVD. No pulse deficits. Respiratory: Lungs have equal breath sounds bilaterally, clear to auscultation and percussion. No rales, rhonchi or wheezes noted. No increased work of breathing, no retractions or nasal flaring. Abdomen/GI: Soft, non-tender, with normal bowel sounds. No distension or tympany. No guarding or rebound. No evidence of tenderness throughout. Back: No spinal tenderness. No costovertebral tenderness. Full range of motion. Skin: Warm, dry with normal turgor. Normal color with no rashes, no lesions, and no evidence of cellulitis. MS/ Extremity: Pulses equal, no cyanosis. Neurovascular intact. Full, normal range of motion. Neuro: Awake and alert, GCS 15, oriented to person, place, time, and situation. Cranial nerves II-XII grossly intact. Motor strength 5/5 in all extremities. Sensory grossly intact. Cerebellar exam normal. Normal gait. Psych: Awake, alert, with orientation to person, place and time. Behavior, mood, and affect are within normal limits. 08:16 ENT: Posterior pharynx: Airway: normal, no evidence of obstruction, Tonsils: bilaterally enlarged, Uvula: normal, swelling, that is mild, erythema, that is mild, Vital Signs: 07:45 BP 107 / 72; Pulse 96; Resp 16 S; Temp 98.4(O); Pulse Ox 99% on R/A; Weight 68.04 kg aa5 (R); Height 5 ft. 0 in. (R); 09:15 BP 111 / 69; Pulse 89; Resp 18 S; Pulse Ox 99% on R/A; aa5 07:45 Body Mass Index 29.29 (68.04 kg, 152.4 cm) aa5 MDM: 07:49 Medical Screening Exam initiated [facility] 08:17 Differential diagnosis: obstructed airway, bronchitis, flu, URI, viral Infection, rayna bacterial infection, URI, bronchitis, pneumonia UTI. Antibiotic administration: The patient is discharged and will get outpatient antibiotics, Amoxicillin. Differential Diagnosis: Obstructed Airway Bronchitis Influenza Upper Respiratory Infection Sinusitis Pharyngitis Otitis Media Asthma Exacerbation Viral Syndrome Pneumonia. Data reviewed: vital signs, nurses notes, lab test result(s). Consideration of Admission/Observation Escalation of care including admission/observation considered. I considered the following discharge prescriptions or medication management in the emergency department Medications were administered in the Emergency Department. See MAR. Test considered but Not performed: Labs: no cbc, comp met. Care significantly affected by the following chronic conditions: none. 09/27 07:50 Order name: Strep [facility] 09/27 07:50 Order name: Flu; Complete Time: 08:57 [facility] 09/27 07:50 Order name: SARS RAPID; Complete Time: 08:57 [facility] 09/27 08:32 Order name: Throat Culture EDMS Administered Medications: 08:29 Drug: Amoxicillin-Clavulanate PO 875 mg PO once Route: PO; aa5 09:20 Follow up: Response: No adverse reaction aa5 08:29 Drug: Ibuprofen PO 600 mg PO once Route: PO; aa5 09:20 Follow up: Response: No adverse reaction aa5 08:29 Drug: Tessalon Perle PO 200 mg PO once Route: PO; aa5 09:20 Follow up: Response: No adverse reaction aa5 08:29 Drug: GI Cocktail without - (Maalox PO 30 ml, Lidocaine Mucous Membrane 2 % 15 aa5 ml) PO once Route: PO; 09:20 Follow up: Response: No adverse reaction aa5 Disposition Summary: 09/27/24 08:57 Discharge Ordered Notes: Location: Home [facility] Problem: new [facility] Symptoms: have improved [facility] Condition: Stable [facility] Diagnosis - Fever, unspecified rayna - Acute upper respiratory infection, unspecified rayna - Acute pharyngitis, unspecified rayna Followup: [facility] - With: Private Physician - When: 2 - 3 days - Reason: Recheck today's complaints, Re-evaluation by your physician Discharge Instructions: - Discharge Summary Sheet [facility] - Fever, Adult rayna - Pharyngitis rayna - Sore Throat rayna - Upper Respiratory Infection, Adult rayna - Cool Mist Vaporizer rayna - Upper Respiratory Infection, Adult, Iijg-og-Hdsg rayna - Pharyngitis, Aevd-tn-Wepm rayna - Cough, Adult rayna - Sore Throat, Pmvs-gv-Waox rayna - Fever, Adult, Hmhk-wy-Gvlr rayna Forms: - Medication Reconciliation Form [facility] - Antibiotic Education [facility] - Prescription Opioid Use [facility] - Patient Portal Instructions [facility] - Leadership Thank You Letter [facility] - Work release form aa5 Prescriptions: - Augmentin 875-125 mg Oral Tablet - take 1 tablet ORAL route every 12 hours for 10 days; 20 tablet; Refills: 0, [facility] Product Selection Permitted - Diana-D 12 Hour 60-120 mg Oral Tablet Sustained Release 12 hr - take 1 tablet ORAL route every 12 hours As needed; 20 tablet; Refills: 0, [facility] Product Selection Permitted - Tessalon Perles 100 mg Oral capsule - take 2 capsule ORAL route every 8 hours As needed; 30 capsule; Refills: 0, [facility] Product Selection Permitted - Medrol (Charly) 4 mg Oral Tablets, Dose Pack - take 1 tablet ORAL route as directed - follow package instructions; 1 packet; [facility] Refills: 0, Product Selection Permitted Signatures: Dispatcher [employer] EDMS Randolph Zamarripa MD MD cha Calderon, Audri, RN RN aa5 Corrections: (The following items were deleted from the chart) 07:51 07:51 Influenza Screen (A \T\ B)+BA.LAB.BRZ ordered. EDMS EDMS 07:51 07:51 SARS-COV-2 Antigen Rapid+I.LAB.BRZ ordered. EDMS EDMS 07:51 07:51 Group A Streptococcus Rapid Sc+BA.LAB.BRZ ordered. EDMS EDMS
[2024-09-27 12:14] VITALS: BP 107/72; TEMP 98.4; O2SAT 99
== END 2024-09-27 09:22 | disposition home or self-care (01) ==
LOC: ER 07:35
DX: J06.9 Acute upper respiratory infection, unspecified (principal); J02.9 Acute pharyngitis, unspecified; Z11.52 Encounter for screening for COVID-19
CPT/HCPCS: 36415; 87070; 87081; 87804; 87811; 99283

== ENCOUNTER 2024-10-30 04:50 | Emergency (ER) | payer SELFPAY ==
--- OUTSIDE RECORDS SUMMARY | 2024-10-30 04:53 | XMS REPORT | Continuity of Care Document ---
Author Name Unknown Address [address] [facility] [address] [place] [address] [facility] thconnect Address [address] [facility] [address] [place] [address] Care Team Providers Care Director Of Digital Marketing Name Role Phone Analilia Stevens Primary Care Physician Medications Ordered Medication Name Filled Medication Name Start Date Stop Date Current Medication? Ordering Clinician Indication Dosage Frequency Signature (SIG) Comments Components Source fluconazole 150 mg tablet 04-28 00:00: 00 Yes 1mg Juliano Rosario TAKE ONE (1) TABLET(S) BY MOUTH EVERY MORNING. 2022-11 00:00: 00 Yes Juliano Rosario TAKE ONE (1) TABLET(S) BY MOUTH TWICE A DAY. 2022-11 0 00:00: 00 Yes Juliano Rosario TAKE ONE (1) TABLET(S) BY MOUTH EVERY SIX TO EIGHT HOURS NEEDED FOR NAUSEA AND VOMITING. 2022-11 0 00:00: 00 Yes Juliano Rosario TAKE ONE (1) TABLET BY MOUTH ONCE NOW FOR 1 DOSE. 01-27 00:00: 00 Yes Juliano Rosario TAKE ONE [...] COUGH. 07-29 00:00: 00 Yes Juliano Rosario amoxicillin 875 mg-paola joon clavulanate 125 mg tablet 12-08 00:00: 00 Yes 1mg Juliano Rosario Bromfed DM 2 mg-30 mg-10 mg/5 mL oral syrup 12-08 00:00: 00 Yes 10mg/5 mL Juliano Rosario ipratropium 0.5 mg-albutero l 3 mg (2.5 mg base)/3 mL nebulizatio n soln 2018-11 00:00: 00 Yes 1mg base)/3 mL Juliano Rosario Dose Unknown 2018-11 00:00: 00 Yes Juliano Rosario metronidazo le 0.75 % vaginal gel 05-10 00:00: 00 Yes 1% Juliano Rosario metronidazo le 500 mg tablet 04-13 00:00: 00 Yes 1mg Juliano Rosario Vital Signs Vital Name Observation Time Observation Value Comments S ource Heart Rate 2024-04-28 10:25:00 81.00 /min Marsha en F Abraham Respiratory Rate 2024-04-28 10:25:00 16.00 /min Juliano Rosario BP Systolic 2024-04-28 10:25:00 114 mm[Hg] Kenneth Rosario BP Diastolic 2024-04-28 10:25:00 70 mm[Hg] Ariel phen Bess Rosario Weight Measured 2024-04-28 10:25:00 158.80 pounds Juliano Rosario Height Measured 2024-04-28 10:25:00 61.50 inches Juliano Rosario Body Temperature 2024-04-28 10:25:00 98.20 degrees Juliano Rosario BP Systolic 2022-07-29 14:38:00 120 mm[Hg] Kenneth hen Bess Rosario BP Diastolic 2022-07-29 14:38:00 74 mm[Hg] Ariel phen Bess Rosario Weight Measured 2022-07-29 14:38:00 172.20 pounds Juliano Rosario Height Measured 2022-07-29 14:38:00 61.50 inches Juliano Rosario Body Temperature 2022-07-29 14:38:00 97.80 degrees Juliano [...] Respiratory Rate 2019-04-13 14:52:00 16.00 /min Juliano Rosario Encounters Start Date/Time End Date/Time Encounter Type Admission Type Attending [facility] Care Department Encounter ID Source 2024-04-28 10:15:50 2024-04-28 10:15:50 Outpatient [facility] [id number] Juliano Rosario 2024-04-28 00:00:00 2024-04-28 00:00:00 Outpatient Visit [facility] [id number] Juliano Rosario 2024-04-26 15:42:42 2024-04-26 15:42:42 Outpatient [facility] [id number] Juliano Rosario 2024-02-18 16:24:57 2024-02-18 16:24:57 Outpatient [facility] [id number] Juliano Rosario Results Test Description Test Time Test Comments Results Result Co mments Source [id number] 00:00:00* Test Item Value Reference Range Interpretation Comme nts TSH, THIRD GENERATION (test code = 2821) 2.200 UIU/ML Juliano RosarioACUTE HEPATITIS [id number] 00:00:00* Test Item Value Reference Range Interpretation Comme nts HEPATITIS A IgM (test code = 25698) NON-REACTIVE HEPATITIS B CORE IgM (test c ode = 4644) NON-REACTIVE HEPATITIS B SURF AG (test co de = 2739) NON-REACTIVE HEPATITIS C ANTIBODY (test c ode = 4675) NON-REACTIVE HCV INDEX (test code = 57347) 0.08 INTERPRETATION HEPATITIS A: (test code = 2552) (NOTE) INTERPRETATION HEPATITIS B: (test code = 19240) (NOTE) INTERPRETATION HEPATITIS C: (test code = 09551) (NOTE) Juliano RosarioRPR [id number] 00:00:00* Test Item Value Reference Range Interpretation Comme nts RPR NON-REFLEX (test code = 3499) NON-REACTIVE Juliano RosarioGC AND CHLAMYDIA, AMPLIFIED, [id number] 00:00:00* Test Item Value Reference Range Interpretation Comme nts GONORRHEA, TMA (test code = 00211) NEGATIVE CHLAMYDIA, TMA (test code = 92187) NEGATIVE Juliano RosarioHIV 1/2 4TH GEN, RFLX CONF [ADDED]2019-05-11 00:00:00* Test Item Value Reference Range Interpretation Comme nts HIV 1/2 4TH GEN, RFLX CONF ( test code = 3514) NON-REACTIVE Juliano RosarioVAGINAL PATHOGENS DNA [id number] 00:00:00* Test Item Value Reference Range Interpretation Comme nts CHANNING SPECIES (test code = 95996) NEGATIVE G. VAGINALIS (test code = 40515) POSITIVE T. VAGINALIS (test code = 80481) NEGATIVE Juliano Rosario
[2024-10-30] MEDS ORDERED: KETOROLAC 30 MG/ML INJ ONE (05:15)
[2024-10-30 05:41] LABS: Absolute Eosinophils 0.2 K/uL (0-0.5); Absolute Lymphocytes (CBC) 1.7 K/uL (0.7-4.9); Absolute Monocytes 0.6 K/uL (0.1-1.3); Absolute Neutrophil 4.2 K/uL (1.8-8.0); Basophils % 0.4 % (0-1.3); Eosinophils % 2.6 % (0-4.4); Hematocrit 37.1 % (36.0-45.0); Hemoglobin 12.3 g/dL (12.0-15.0); Lymphocytes % 25.1 % (15.3-44.8); MCH 29.6 pg (27.0-35.0); MCHC 33.1 g/dL (32.0-36.0); MCV 89.4 fL (80-100); MPV 9.9 fL (7.6-11.3); Monocytes % 8.6 % (3.3-12.3); Neutrophils % 63.3 % (41.7-73.7); Platelets 206 thou/uL (152-406); RBC Red Blood Cell Count 4.15 M/uL (3.86-4.86); Red Cell Distribution Width 13.1 % (12.1-15.2)
[2024-10-30 05:49] LABS: Specific Gravity 1.012 (1.005-1.030); Sqamous Epithelial <5 /HPF (None Seen); Urine Bacteria None Seen /HPF (<20); Urine Bilirubin NEGATIVE (Negative); Urine Blood Negative (Negative); Urine Clarity Turbid (Clear); Urine Color Light-Yellow (Yellow); Urine Culture Reflex Order NOT NEEDED; Urine Glucose NEGATIVE (Negative); Urine Ketones NEGATIVE (Negative); Urine Microscopic Reflex YN ORDER UMIC; Urine Mucus Slight /HPF (None Seen); Urine Nitrite NEGATIVE (Negative); Urine Protein NEGATIVE (Negative); Urine Urobilinogen Normal (Normal); Urine pH 5.5 (5.0-7.0)
[2024-10-30 05:57] LABS: Albumin 3.1 g/dL (3.4-5.0); Albumin/Globulin Ratio 0.8 (1.1-1.8); Anion Gap 6.5 mEq/L (5.0-15.0); Bilirubin Total 0.3 mg/dL (0.2-1.0); Potassium 3.5 mEq/L (3.5-5.1); Protein, Total 7.1 g/dL (6.4-8.2); Troponin High Sensitivity 3.1 pg/mL (<58.9)
[2024-10-30] MEDS ORDERED: MAGNES/ALUMIN/SIMET 30ML UCUP ONE (06:41)
[2024-10-30] MEDS ORDERED: FAMOTIDINE 20 MG TAB ONE (06:41)
[2024-10-30] MEDS ORDERED: LIDOCAINE VISCOUS 2% 10ML ORAL SOLN ONE (06:41)
--- NOTE | 2024-10-30 07:21 | RAD REPORT ---
EXAMINATION: CT Abdomen Pelvis W Contrast CLINICAL INDICATION: Female, 39 years old. ABD PAIN TECHNIQUE: CT abdomen and pelvis was performed, after the administration of IV contrast, as per [facility] protocol. Axial, sagittal and coronal reconstructions were obtained. One or more of the following dose reduction techniques were used: Automated exposure control, adjustment of the mA and k V according to patient size, and iterative reconstruction. Unless otherwise specified, incidental findings do not require dedicated imaging follow-up. COMPARISON: 08/19/2023 FINDINGS: LOWER CHEST: The visualized lung bases are clear. LIVER: Normal in size and contour. No focal lesion. BILIARY SYSTEM: No suspicious abnormalities. Gallbladder is without fluid distended which limits eval uation SPLEEN: Normal size. No focal lesion. PANCREAS: No mass, ductal dilation, or brad-pancreatic fluid. ADRENALS: Normal; no mass. KIDNEYS: Normal size and contour. No hydronephrosis. URINARY BLADDER: Decompressed limiting evaluation. GASTROINTESTINAL TRACT: No evidence of free air, significant intra-abdominal free fluid, bowel obstru ction or abscess. Moderate stool burden particularly along the ascending colon. APPENDIX: Normal appendix. LYMPH NODES: No lymphadenopathy. MUSCULOSKELETAL: No acute or suspicious osseous abnormality. Transitional anatomy again seen, with pa rtial lumbarization of S1. ADDITIONAL FINDINGS: Right adnexal cysts/follicles, including a probable right paraovarian benign-aimee earing 1.9 cm cyst, stable. Some fluid accumulation in the endometrium, and mildly heterogeneous appearance in the region of the cervix, not well characterized. IMPRESSION: No acute or concerning abnormalities seen in the abdomen or pelvis. Moderate stool retention particularly along the ascending colon. Some fluid accumulation within the endometrial cavity with mildly heterogeneous appearance in the reg ion of the cervix, not well characterized. Please correlate with menstrual phase, and consider additional evaluation with dedicated pelvic ultrasound if there are concerning clinical symptoms.
--- NOTE | 2024-10-30 07:34 | EDPHYS ---
Physician Documentation [facility] Name: Maida Tomlin Age: 39 yrs Sex: Female : 1985 Arrival Date: 10/30/2024 Time: 04:50 Bed 5 Private MD: ED Physician Randolph Zamarripa HPI: 10/30 05:13 This 39 yrs old Female presents to ER via Ambulatory with complaints of sd2 Abdominal Pain. 05:13 39 yo F presents with CC of upper abdominal pain for the past 3 days. Reports no sd2 nausea, vomiting, diarrhea or urinary symptoms. Reports prior hx of ovarian cysts and that pain feels similar but is higher up than the prior time. Denies chance of with prior tubal ligation. 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 - Infectious Disease History:: Denies. - Social history:: Smoking status: Patient denies any tobacco usage or history of. Patient/guardian denies using alcohol, street drugs. ROS: 05:13 Constitutional: Negative for fever, chills, and weight loss, Eyes: Negative for injury, sd2 pain, redness, and discharge, Cardiovascular: Negative for chest pain, palpitations, and edema, Respiratory: Negative for shortness of breath, cough, wheezing. 05:13 : Negative for dysuria, urinary frequency, hesitancy, urgency and hematuria. MS/Extremity: Negative for injury and deformity, Skin: Negative for injury, rash, and discoloration, Neuro: Negative for headache, numbness and tingling. 05:13 Abdomen/GI: Positive for abdominal pain, Negative for nausea, vomiting, and diarrhea, Exam: 05:13 Constitutional: This is a well developed, well nourished patient who is awake, alert, sd2 and in no acute distress. Head/Face: Normocephalic, atraumatic. Eyes: EOMI, normal conjunctiva bilaterally Chest/axilla: Normal chest wall appearance and motion. Nontender with no deformity. Cardiovascular: Regular rate and rhythm with a normal S1 and S2. No gallops, murmurs, or rubs. 2+ distal pulses. Respiratory: Lungs have equal breath sounds bilaterally, clear to auscultation and percussion. No rales, rhonchi or wheezes noted. No increased work of breathing, no retractions or nasal flaring. Abdomen/GI: Soft, ND, epigastric and upper abdominal TTP, no rebound or guarding Skin: Warm, dry with normal turgor. Normal color with no rashes, no lesions, and no evidence of cellulitis. MS/ Extremity: Pulses equal, no cyanosis. Neurovascular intact. Full, normal range of motion. Psych: Awake, alert, with orientation to person, place and time. Behavior, mood, and affect are within normal limits. 05:27 ECG was reviewed by the Attending Physician. NSR, rate 86, no STEMI criteria sd2 Vital Signs: 05:04 BP 112 / 69; Pulse 81; Resp 16 S; Temp 98.6(O); Pulse Ox 99% on R/A; Weight 72.57 kg lg3 (R); Height 5 ft. 0 in. (R); Pain 7/10; 06:00 BP 106 / 54; Pulse 75; Resp 16; Pulse Ox 99% on R/A; dd2 06:38 BP 103 / 89; Pulse 71; Resp 18; Temp 98.6; Pulse Ox 99% ; Pain 5/10; bm8 07:09 BP 106 / 64; Pulse 63; Resp 20; Pulse Ox 97% on R/A; ll1 07:27 BP 116 / 67; Pulse 66; Resp 18; Pulse Ox 97% ; ll1 05:04 Body Mass Index 31.25 (72.57 kg, 152.4 cm) lg3 05:04 Pain Scale: Adult lg3 06:38 Pain Scale: Adult bm8 Ria Coma Score: 05:23 Eye Response: spontaneous(4). Motor Response: obeys commands(6). Verbal Response: bm8 oriented(5). Total: 15. 06:38 Eye Response: spontaneous(4). Motor Response: obeys commands(6). Verbal Response: bm8 oriented(5). Total: 15. MDM: 04:57 Medical Screening Exam initiated sd2 05:13 Differential diagnosis: gastritis, GB pathology, diverticulitis, ovarian cyst, ACS sd2 among others. Data reviewed: vital signs, nurses notes, lab test result(s), EKG, radiologic studies. I considered the following discharge prescriptions or medication management in the emergency department Medications were administered in the Emergency Department. See JAN. 10/30 05:12 Order name: CBC with Diff; Complete Time: 05:58 sd2 10/30 05:12 Order name: CMP; Complete Time: 05:58 sd2 10/30 05:12 Order name: Lipase; Complete Time: 05:58 sd2 10/30 05:12 Order name: Troponin High Sensitivity; Complete Time: 05:58 sd2 10/30 05:12 Order name: Urinalysis w/ reflexes; Complete Time: 05:58 sd2 10/30 05:12 Order name: Test, Serum; Complete Time: 05:58 sd2 10/30 05:12 Order name: CT Abd/Pelvis - IV Contrast Only; Complete Time: 07:32 sd2 Administered Medications: 05:22 Drug: Ketorolac IVP 15 mg IVP once Route: IVP; Site: right antecubital; bm8 06:38 Follow up: Response: No adverse reaction bm8 06:43 Drug: GI Cocktail with - (Maalox PO 30 ml, Lidocaine Mucous Membrane 2 % 20 dd2 ml, Phenobarbital-Belladonna PO 10 ml) PO once Route: PO; 07:37 Follow up: Response: No adverse reaction ss 06:43 Drug: Famotidine PO 20 mg PO once Route: PO; dd2 07:37 Follow up: Response: No adverse reaction ss 07:43 Drug: Rocephin IV 1 grams IV at per protocol once; Given slow IV push per pharmacy ll1 instructions Route: IV; Rate: per protocol; Site: right antecubital; 07:58 Follow up: Response: No adverse reaction; IV Status: Completed infusion; IV Intake: [id number] Disposition Summary: 10/30/24 07:34 Discharge Ordered Notes: Location: Home rayna Problem: new rayna Symptoms: have improved rayna Condition: Stable rayna Diagnosis - Abdominal tenderness rayna - UTI/ Urinary tract infection, site not specified rayna - Constipation rayan Followup: rayna - With: Private Physician - When: 2 - 3 days - Reason: Recheck today's complaints, Continuance of care, Re-evaluation by your physician Discharge Instructions: - Abdominal Pain, Adult rayna - Constipation, Adult rayna - Dysuria rayna - Urinary Tract Infection, Adult rayna - Constipation, Adult, Wysp-ae-Pknw rayna - Urinary Tract Infection, Adult, Qnxw-pv-Tags rayna - Abdominal Pain, Adult, Bduj-[id number]-Drdl rayna - Discharge Summary Sheet ll1 Forms: - Medication Reconciliation Form rayna - Antibiotic Education rayna - Prescription Opioid Use rayna - Patient Portal Instructions rayna - Leadership Thank You Letter [facility] - Work release form ll1 Prescriptions: - Miralax 17 gram Oral powder in packet - take 1 packet ORAL route daily as needed for constipation; 14 packet; Refills: rayna 0, Product Selection Permitted - ondansetron 4 mg Oral Tablet,disintegrating - take 1 tablet ORAL route every 8 to 12 hours for 4 days; 15 tablet; Refills: 0, rayna Product Selection Permitted - Cipro 250 mg Oral tablet - take 1 tablet ORAL route every 12 hours; 14 tablet; Refills: 0, Product rayna Selection Permitted - dicyclomine 20 mg Oral tablet - take 1 tablet ORAL route 4 times per day; 28 tablet; Refills: 0, Product rayna Selection Permitted Signatures: Dispatcher [employer] EDMS Randolph Zamarripa MD MD cha Able, Lacie, RN RN lg3 Ramiro Steen, RN RN ll1 Destini Lawrence MD MD sd2 Fredis Mae, RN RN bm8 CHIARA KIM, RN RN dd2 Joaquina Almonte RN ss Corrections: (The following items were deleted from the chart) 05:13 05:13 CBC+H.LAB.BRZ ordered. EDMS EDMS 05:13 05:13 COMPREHENSIVE METABOLIC PANEL+C.LAB.BRZ ordered. EDMS EDMS 05:13 05:13 LIPASE+C.LAB.BRZ ordered. EDMS EDMS 05:13 05:13 Troponin High Sensitivity+C.LAB.BRZ ordered. EDMS EDMS 05:13 05:13 Urinalysis+U.LAB.BRZ ordered. EDMS EDMS 05:13 05:13 TEST, SERUM+SC.LAB.BRZ ordered. EDMS EDMS 05:13 05:13 Abdomen Pelvis W Con+CT.RAD.BRZ ordered. EDMS EDMS
--- NOTE | 2024-10-30 07:34 | ER ---
Nurse's Notes [facility] Name: Maida Tomlin Age: 39 yrs Sex: Female : 1985 Arrival Date: 10/30/2024 Time: 04:50 Bed 5 Private MD: Diagnosis: Abdominal tenderness;UTI/ Urinary tract infection, site not specified;Constipation Presentation: 10/30 05:04 Chief complaint: Patient states: generalized's abdominal pain X3 days. denies N/V/D. lg3 Coronavirus screen: Client denies travel out of the [place] in the last 14 days. At this time, the client does not indicate any symptoms associated with coronavirus-19. Ebola Screen: No symptoms or risks identified at this time. Initial Sepsis Screen: Does the patient meet any 2 criteria? No. Patient's initial sepsis screen is negative. Does the patient have a suspected source of infection? No. Patient's initial sepsis screen is negative. Risk Assessment: Do you want to hurt yourself or someone else? Patient reports no desire to harm self or others. Onset of symptoms was October 27, 2024. 05:04 Method Of Arrival: Ambulatory lg3 05:04 Acuity: SARKIS 3 lg3 Triage Assessment: 05:05 General: Appears in no apparent distress. comfortable, Behavior is calm, cooperative. lg3 Pain: Complains of pain in abdomen Pain radiates to back. EENT: No deficits noted. No signs and/or symptoms were reported regarding the EENT system. Neuro: No deficits noted. Patterson Agitation-Sedation Scale (RASS): 0 - Alert and Calm Level of Consciousness is awake, alert, obeys commands, Oriented to person, place, time, situation. Cardiovascular: No deficits noted. Denies chest pain, shortness of breath, Capillary refill < 3 seconds Clubbing of nail beds is absent JVD is absent Patient's skin is warm and dry. Respiratory: No deficits noted. Airway is patent Respiratory effort is even, unlabored, Respiratory pattern is regular, symmetrical. GI: Abdomen is round non-distended, Reports lower abdominal pain, upper abdominal pain. : Reports inability to void. Derm: No deficits noted. No signs and/or symptoms reported regarding the dermatologic system. Skin is intact, is healthy with good turgor, Skin is dry, Skin is normal, Skin temperature is warm. Musculoskeletal: No deficits noted. No signs and/or symptoms reported regarding the musculoskeletal system. Circulation, motion, and sensation intact. Range of motion: intact in all extremities. 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 - Infectious Disease History:: Denies. - Social history:: Smoking status: Patient denies any tobacco usage or history of. Patient/guardian denies using alcohol, street drugs. Screenin:23 [facility] ED Fall Risk Assessment (Adult) History of falling in the last 3 months, bm8 including since admission No falls in past 3 months (0 pts) Confusion or Disorientation No (0 pts) Intoxicated or Sedated No (0 pts) Impaired Gait No (0 pts) Mobility Assist Device Used No (0 pt) Altered Elimination No (0 pt) Score/Fall Risk Level 0 - 2 = Low Risk Oriented to surroundings, Maintained a safe environment, Educated pt \T\ family on fall prevention, incl call for assistance when getting out of bed, Assessed \T\ reinforced patient's understanding of fall precautions, Hourly rounding (assess needs \T\ fall precautionary measures) done, Used ambulatory aids as needed (educated on \T\ assisted with), Used gait belt as appropriate. Abuse screen: Denies threats or abuse. Nutritional screening: No deficits noted. Tuberculosis screening: No symptoms or risk factors identified. Assessment: 05:23 General: Appears in no apparent distress. comfortable, Behavior is calm, cooperative, bm8 appropriate for age. Pain: Complains of pain in epigastric area and back Pain currently is 6 out of 10 on a pain scale. Neuro: No deficits noted. Level of Consciousness is awake, alert, obeys commands, Oriented to person, place, time, situation, Appropriate for age. Cardiovascular: Denies chest pain, shortness of breath, Capillary refill < 3 seconds in bilateral fingers Rhythm is sinus rhythm. Respiratory: Airway is patent Trachea midline Respiratory effort is even, unlabored, Respiratory pattern is regular, symmetrical. GI: Abdomen is flat, non-distended, Bowel sounds present X 4 quads. Abdomen is tender to palpation in epigastric area Reports upper abdominal pain, Pain is 6 out of 10 on a pain scale. : No signs and/or symptoms were reported regarding the genitourinary system. EENT: No signs and/or symptoms were reported regarding the EENT system. Derm: No signs and/or symptoms reported regarding the dermatologic system. Musculoskeletal: No signs and/or symptoms reported regarding the musculoskeletal system. 06:38 Reassessment: Patient appears in no apparent distress at this time. No changes from bm8 previously documented assessment. Patient and/or family updated on plan of care and expected duration. Pain level reassessed. Patient is alert, oriented x 3, equal unlabored respirations, skin warm/dry/pink. 07:44 General: Appears in no apparent distress. Behavior is calm, cooperative, appropriate ll1 for age. Pain: Complains of pain in abdomen Pain radiates to back Quality of pain is described as aching, crampy. GI: Reports lower abdominal pain, upper abdominal pain, cramping, nausea. : Reports urinary frequency, with oliguria. 07:58 Reassessment: No changes from previously documented assessment. Patient and/or family ll1 updated on plan of care and expected duration. Pain level reassessed. Patient is alert, oriented x 3, equal unlabored respirations, skin warm/dry/pink. Vital Signs: 05:04 BP 112 / 69; Pulse 81; Resp 16 S; Temp 98.6(O); Pulse Ox 99% on R/A; Weight 72.57 kg lg3 (R); Height 5 ft. 0 in. (R); Pain 7/10; 06:00 BP 106 / 54; Pulse 75; Resp 16; Pulse Ox 99% on R/A; dd2 06:38 BP 103 / 89; Pulse 71; Resp 18; Temp 98.6; Pulse Ox 99% ; Pain 5/10; bm8 07:09 BP 106 / 64; Pulse 63; Resp 20; Pulse Ox 97% on R/A; ll1 07:27 BP 116 / 67; Pulse 66; Resp 18; Pulse Ox 97% ; ll1 05:04 Body Mass Index 31.25 (72.57 kg, 152.4 cm) lg3 05:04 Pain Scale: Adult lg3 06:38 Pain Scale: Adult bm8 Ria Coma Score: 05:23 Eye Response: spontaneous(4). Motor Response: obeys commands(6). Verbal Response: bm8 oriented(5). Total: 15. 06:38 Eye Response: spontaneous(4). Motor Response: obeys commands(6). Verbal Response: bm8 oriented(5). Total: 15. ED Course: 04:52 Patient arrived in ED. jj6 04:57 Destini Lawrence MD is Attending Physician. sd2 05:05 Triage completed. lg3 05:05 Arm band placed on right wrist. lg3 05:13 CHIARA KIM, RN is Primary Nurse. dd2 05:23 Patient has correct armband on for positive identification. Bed in low position. Call bm8 light in reach. Side rails up X 1. Client placed on continuous cardiac and pulse oximetry monitoring. NIBP monitoring applied. air sampling and monitoring on. Pulse ox on. NIBP on. Door closed. Noise minimized. Warm blanket given. Pillow given. Verbal reassurance given. Head of bed elevated. 05:23 No provider procedures requiring assistance completed. Initial lab(s) drawn, by ED bm8 staff, sent to lab. Urine collected: clean catch specimen, clear, EKG done, by ED staff, reviewed by Destini Lawrence MD. Inserted saline lock: 20 gauge in right antecubital area, using aseptic technique. Blood collected. Flushed with 10 mL NS. Patient maintains SpO2 saturation greater than 95% on room air. 06:32 CT Abd/Pelvis - IV Contrast Only In Process Unspecified. EDME 06:58 Report given to DOMI Rubio. bm8 07:08 Attending Physician role handed off by Destini Lawrence MD rayna 07:08 Randolph Zamarripa MD is Attending Physician. rayna 07:10 Provided Education on: ER procedures and process. ll1 07:40 IV is patent, is intact, with fluids infusing freely, 20 R AC. ll1 07:58 IV discontinued, intact, bleeding controlled, No redness/swelling at site. Pressure ll1 dressing applied. Administered Medications: 05:22 Drug: Ketorolac IVP 15 mg IVP once Route: IVP; Site: right antecubital; bm8 06:38 Follow up: Response: No adverse reaction bm8 06:43 Drug: GI Cocktail with - (Maalox PO 30 ml, Lidocaine Mucous Membrane 2 % 20 dd2 ml, Phenobarbital-Belladonna PO 10 ml) PO once Route: PO; 07:37 Follow up: Response: No adverse reaction ss 06:43 Drug: Famotidine PO 20 mg PO once Route: PO; dd2 07:37 Follow up: Response: No adverse reaction ss 07:43 Drug: Rocephin IV 1 grams IV at per protocol once; Given slow IV push per pharmacy ll1 instructions Route: IV; Rate: per protocol; Site: right antecubital; 07:58 Follow up: Response: No adverse reaction; IV Status: Completed infusion; IV Intake: [id number] Medication: 05:23 VIS not applicable for this client. bm8 Intake: 07:58 IV: 50ml; Total: 50ml. ll1 Outcome: 07:34 Discharge ordered by . [facility] 07:58 Patient left the ED. 1 07:58 Discharged to home ambulatory, 1 07:58 Condition: stable 07:58 Discharge instructions given to patient, Instructed on discharge instructions, follow up and referral plans. medication usage, Demonstrated understanding of instructions, follow-up care, medications, Prescriptions given X 4, Signatures: Dispatcher [employer] EDMS Randolph Zamarripa MD MD cha Blanchard, Shelby, RN Thelma Danielle RN RN lg3 Ramiro Steen RN RN ll1 Luna Cullen Stephanie, MD MD sd2 Fredis Mae RN RN bm8 CHIARA KIM RN RN dd2 Corrections: (The following items were deleted from the chart) 07:28 07:09 Reassessment: 1 1
[2024-10-30] MEDS ORDERED: NA CHLORIDE 0.9% 50 ML ONE (07:35)
[2024-10-30] MEDS ORDERED: CEFTRIAXONE 1000 MG/VIAL ONE (07:35)
[2024-10-30 08:25] VITALS: TEMP 98.6
[2024-10-30 08:26] VITALS: O2SAT 97
[2024-10-30 08:27] VITALS: BP 116/67
--- NOTE | 2024-11-01 11:16 | EKG ---
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
== END 2024-10-30 07:58 | disposition home or self-care (01) ==
LOC: ER 04:50
DX: N39.0 Urinary tract infection, site not specified (principal); K59.00 Constipation, unspecified
CPT/HCPCS: 36415; 74177; 80053; 81001; 83690; 84484; 84703; 85025; 93005; 96374; 96375; 99285; J0696; Q9967